=== PATIENT | male | born 1960 | race Caucasian/White ===

== ENCOUNTER → 2019-07-06 13:05 | Outpatient (BNVA) | payer MEDICARE, SELFPAY | PROVIDERS: Family Provider Nurse Practitioner Family; PCP Nurse Practitioner Family; Visit Provider Nurse Practitioner Psychiatric/Mental Health | DX: F33.3 Major depressive disorder, recurrent, severe with psychotic symptoms (principal); F41.1 Generalized anxiety disorder; F70 Mild intellectual disabilities | CPT/HCPCS: 99214 ==

== ENCOUNTER → 2019-08-24 09:00 | Outpatient (BNVA) | payer MEDICARE, SELFPAY | PROVIDERS: Family Provider Nurse Practitioner Family; PCP Nurse Practitioner Family; Visit Provider Nurse Practitioner Family | DX: M79.641 Pain in right hand (principal); M79.642 Pain in left hand; Z68.31 Body mass index [BMI] 31.0-31.9, adult | CPT/HCPCS: 80053; 85651; 86140 ==

== ENCOUNTER → 2019-08-31 08:08 | Outpatient (BNVA) | payer MEDICARE, SELFPAY | PROVIDERS: Family Provider Nurse Practitioner Family; PCP Nurse Practitioner Family; Visit Provider Nurse Practitioner Psychiatric/Mental Health | DX: F33.3 Major depressive disorder, recurrent, severe with psychotic symptoms (principal); F41.1 Generalized anxiety disorder; F70 Mild intellectual disabilities | CPT/HCPCS: 99213 ==

== ENCOUNTER → 2019-09-28 10:05 | Outpatient (BNVA) | payer MEDICARE, SELFPAY | PROVIDERS: Family Provider Nurse Practitioner Family; PCP Nurse Practitioner Family; Visit Provider Nurse Practitioner Family | DX: M79.641 Pain in right hand (principal); M79.642 Pain in left hand; W57.XXXA Bitten or stung by nonvenomous insect and other nonvenomous arthropods, initial encounter; E11.9 Type 2 diabetes mellitus without complications | CPT/HCPCS: 73130; 83036; 86618; 86666; 86757 ==

== ENCOUNTER → 2019-10-19 10:59 | Outpatient (BNVA) | payer MEDICARE, SELFPAY | PROVIDERS: Family Provider Nurse Practitioner Family; PCP Nurse Practitioner Family; Referring Provider Nurse Practitioner Family; Visit Provider Podiatrist Foot & Ankle Surgery | DX: S99.922A Unspecified injury of left foot, initial encounter (principal); E11.42 Type 2 diabetes mellitus with diabetic polyneuropathy; L84 Corns and callosities; X58.XXXA Exposure to other specified factors, initial encounter | CPT/HCPCS: 73660 ==

== ENCOUNTER → 2019-11-16 11:03 | Outpatient (BNVA) | payer MEDICARE, SELFPAY | PROVIDERS: Family Provider Nurse Practitioner Family; PCP Nurse Practitioner Family; Visit Provider Family Medicine | DX: R50.9 Fever, unspecified (principal); R19.7 Diarrhea, unspecified | CPT/HCPCS: 80053; 81000; 85025 ==

== ENCOUNTER → 2019-11-22 07:41 | Outpatient (BNVA) | payer MEDICARE, SELFPAY | PROVIDERS: Family Provider Nurse Practitioner Family; PCP Nurse Practitioner Family; Visit Provider Nurse Practitioner Psychiatric/Mental Health | DX: F33.3 Major depressive disorder, recurrent, severe with psychotic symptoms (principal); F41.1 Generalized anxiety disorder; F70 Mild intellectual disabilities; Z79.899 Other long term (current) drug therapy | CPT/HCPCS: 99214 ==

== ENCOUNTER → 2019-12-20 08:13 | Outpatient (BNVA) | payer MEDICARE, SELFPAY | PROVIDERS: Family Provider Nurse Practitioner Family; PCP Nurse Practitioner Family; Visit Provider Nurse Practitioner Psychiatric/Mental Health | DX: F33.3 Major depressive disorder, recurrent, severe with psychotic symptoms (principal); F41.1 Generalized anxiety disorder; F70 Mild intellectual disabilities | CPT/HCPCS: 99213 ==

== ENCOUNTER 2020-02-14 08:00 | Outpatient (CLI) | payer MEDICARE, SELFPAY ==
--- NOTE | 2020-02-14 08:07 | USCV_ITS ---
Sandip Hirsch Age: 59 Gender: M : 1960 Exam Date: 02/14/2020 08:24 Ordering Phys: Mireille Denny Technologist: Jolly Hutchison Exam Location: [facility] [place] Indication: HEART MURMUR BP: 144 / 72 HR: 77 Rhythm: Sinus Technical Quality: Adequate MEASUREMENTS (Male / Female) Normal Values 2D ECHO LV Diastolic Diameter PLAX 3.5 cm 4.2 - 5.9 / 3.9 - 5.3 cm LV Systolic Diameter PLAX 2.9 cm LV Chamber Size 3.9 cm IVS Diastolic Thickness 1.5 cm 0.6 - 1.0 / 0.6 - 0.9 cm IVS Systolic Thickness 1.8 cm LVPW Diastolic Thickness 1.7 cm 0.6 - 1.0 / 0.6 - 0.9 cm LVPW Systolic Thickness 2.1 cm RV Chamber Size 2.8 cm LVOT Diameter 2.1 cm LV Ejection Fraction 2D Teich 35.3 % LV Ejection Fraction MOD 2C 77.2 % LV Ejection Fraction 2C AL 77.8 % LA Diameter 4.3 cm LA Width 3.1 cm LA Height 4.3 cm RA Width 3.3 cm RA Height 3.7 cm Aorta at Sinotubular Diameter 3.0 cm M-MODE LV Diastolic Diameter MM 4.2 cm 4.2 - 5.9 / 3.9 - 5.3 cm LV Systolic Diameter MM 1.6 cm LV Ejection Fraction MM Teich 90.8 % IVS Diastolic Thickness MM 1.3 cm 0.6 - 1.0 / 0.6 - 0.9 cm IVS Systolic Thickness MM 1.3 cm LVPW Diastolic Thickness MM 1.6 cm 0.6 - 1.0 / 0.6 - 0.9 cm LVPW Systolic Thickness MM 1.9 cm Aortic Annulus Diameter 3.4 cm LA Ao Ratio MM 1.4 MV E Point Septal Separation 0.5 cm DOPPLER AV Peak Velocity 214.0 cm/s LVOT Peak Velocity 98.0 cm/s AV Area Cont Eq vti 1.9 cm squared AV Area Cont Eq pk 1.6 cm squared MV Area PHT 2.7 cm squared Mitral E to A Ratio 0.9 MV E' Velocity 35.0 cm/s Mitral E to MV E' Ratio 4.5 Mitral E to LV E' Lateral Ratio 4.3 Mitral E to LV E' Septal Ratio 4.8 TR Peak Velocity 182.3 cm/s TR Peak Gradient 13.3 mmHg TV Peak E Velocity 53.0 cm/s Right Atrial Pressure 3.0 mmHg Pulmonary Artery Systolic Pressu 16.3 mmHg PV Peak Velocity 67.0 cm/s RV Acceleration Time 0.1 s RV Ejection Time 0.3 s RV AcT/ET 0.4 FINDINGS Left Ventricle Normal left ventricular size and systolic function, EF 75 %. No regional wall motion abnormalities. Mild left ventricular hypertrophy. Grade I/IV diastolic dysfunction (abnormal relaxation filling pattern), normal to mildly elevated filling pressures. Right Ventricle Normal right ventricular size and systolic function. Right Atrium Normal right atrial size. Left Atrium Normal left atrial size. Mitral Valve No gross abnormalities noted. Aortic Valve Aortic valve sclerosis. Peak velocity of 2.1 m/s Tricuspid Valve No gross abnormalities noted Pulmonic Valve Pulmonic valve not well visualized. Pericardium No pericardial effusion. Aorta Normal aortic annulus size. CONCLUSIONS Normal left ventricular size and systolic function, EF 75 %. No regional wall motion abnormalities. Mild left ventricular hypertrophy. Grade I/IV diastolic dysfunction (abnormal relaxation filling pattern), normal to mildly elevated filling pressures. Aortic valve sclerosis. There is no pericardial effusion. There are no intracardiac masses. No previous study is available for comparison. Dr Wai Nava MD FAC (Electronically Signed) Final Date: 14 February 2020 12:34 S
== END 2020-02-14 08:01 | disposition home or self-care (01) ==
PROVIDERS: PCP Family Medicine; Visit Provider Nurse Practitioner
DX: R01.1 Cardiac murmur, unspecified (principal); I35.8 Other nonrheumatic aortic valve disorders
CPT/HCPCS: 93306

== ENCOUNTER → 2020-02-28 08:24 | Outpatient (BNVA) | payer MEDICARE, SELFPAY | PROVIDERS: PCP Family Medicine; Visit Provider Nurse Practitioner Psychiatric/Mental Health | DX: F33.3 Major depressive disorder, recurrent, severe with psychotic symptoms (principal); F41.1 Generalized anxiety disorder; F70 Mild intellectual disabilities | CPT/HCPCS: 99213 ==

== ENCOUNTER → 2020-05-01 07:30 | Outpatient (BNVA) | payer MEDICARE, SELFPAY | PROVIDERS: PCP Family Medicine; Visit Provider Nurse Practitioner Psychiatric/Mental Health | DX: F33.3 Major depressive disorder, recurrent, severe with psychotic symptoms (principal); F41.1 Generalized anxiety disorder; F70 Mild intellectual disabilities | CPT/HCPCS: 99213 ==

== ENCOUNTER → 2020-07-18 07:24 | Outpatient (BNVA) | payer MEDICARE, SELFPAY | PROVIDERS: PCP Family Medicine; Visit Provider Nurse Practitioner Psychiatric/Mental Health | DX: F33.3 Major depressive disorder, recurrent, severe with psychotic symptoms (principal); F41.1 Generalized anxiety disorder; F70 Mild intellectual disabilities | CPT/HCPCS: 99214 ==

== ENCOUNTER → 2020-08-08 08:48 | Outpatient (BNVA) | payer MEDICARE, SELFPAY | PROVIDERS: PCP Family Medicine; Visit Provider Nurse Practitioner Family | DX: Z01.812 Encounter for preprocedural laboratory examination (principal); Z12.11 Encounter for screening for malignant neoplasm of colon; Z20.822 Contact with and (suspected) exposure to COVID-19 | CPT/HCPCS: 87635 ==

== ENCOUNTER 2020-08-14 06:37 | Day surgery (SDC) | payer MEDICARE, SELFPAY ==
--- NOTE | 2020-08-14 07:23 | ANES.PREANE2 ---
Pre-Anesthetic Assessment Pre-Anesthetic Assessment: Height/Weight: Height 1.75 m Preop Diagnosis: screening Proposed Procedure: Operation Date: 08/14/20 08:00 Proposed Procedures p Colonoscopy 80286 Z12.11(Not Applicable) - David Simpson MD Familial anesthetic complications: None Was Beta Frankie taken within 24 hours: Yes Was Clonidine taken within 24 hours: N/A Last intake: > 8 hrs Social: Social History: No alcohol and No tobacco Exam: Pre-Anes Outpt Exam: alert, oriented x 3, clear to auscultation bilaterally and regular rate & rhythm Airway: Cervical ROM: WNL MP: 3 Dentition: Other (no teeth) CV/HEM: CV/HEM: HTN Metabolic: Metabolic: DM, Hyperlipidemia, Morbid obesity and Thyroid Musc/skel: Musc/skel: OA/DJD (tick fever) Anesthetic Plan: ASA status: 3 Anesthesia: MAC Risk of > 500 ml blood loss (7ml/kg in children): No PFSH Anesthesia PFSH: Medical History Generalized anxiety disorder 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
[2020-08-14 07:35] VITALS: BMI 37.6
[2020-08-14 07:51] VITALS: BP 119/79; PULSE 48; RESP 16; TEMP 36.6; O2SAT 96
[2020-08-14] MEDS: sodium chloride 0.9% 1,000 ML 30 ML IV (08:10)
[2020-08-14 08:12] LABS: Glucose Point of Care 116 mg/dL (70-110)
--- NOTE | 2020-08-14 08:29 | W.PM.OPSUD ---
Surgery/Procedure H&P Update DATE OF PROCEDURE: August 14, 2020 DATE H&P PERFORMED: 07/20/20 PREOP DIAGNOSIS: screening PLANNED PROCEDURE: Operation Date: 08/14/20 08:00 Proposed Procedures p Colonoscopy 45453 Z12.11(Not Applicable) - David Simpson MD
[2020-08-14 08:49] VITALS: BP 93/63; PULSE 79; RESP 16; TEMP 36.1; O2SAT 95
[2020-08-14 08:58] VITALS: BP 112/65; PULSE 47; RESP 18; O2SAT 97
--- NOTE | 2020-08-14 17:43 | ANE.PACU2 ---
Inpatient post-anesthesia follow up: Airway intact: Yes Vital signs: Temperature 97 F Pulse Rate 47 Respiratory Rate 18 Blood Pressure 112/65 Pulse Oximetry 97 Oxygen Delivery Me thod Room Air Oxygen Flow Rate 3 Fraction of Inspir ed Oxygen Hydration adequate: Yes Nausea and vomiting: No Pain level: 2 Mental status: Baseline
== END 2020-08-14 09:10 | disposition home or self-care (01) ==
PROVIDERS: PCP Family Medicine; Visit Provider Internal Medicine
PROC: 0DJD8ZZ Inspection of Lower Intestinal Tract, Via Natural or Artificial Opening Endoscopic (ICD-10-PCS; CPT 45378; principal; 2020-08-14 08:00)
DX: Z12.11 Encounter for screening for malignant neoplasm of colon (principal); Z79.82 Long term (current) use of aspirin; I10 Essential (primary) hypertension; E11.9 Type 2 diabetes mellitus without complications; Z79.84 Long term (current) use of oral hypoglycemic drugs; E78.5 Hyperlipidemia, unspecified; E66.01 Morbid (severe) obesity due to excess calories; Z68.37 Body mass index [BMI] 37.0-37.9, adult; M19.90 Unspecified osteoarthritis, unspecified site
CPT/HCPCS: 36416; 82962; 96360; G0121; J2704; J7030

== ENCOUNTER → 2020-08-17 09:04 | Outpatient (BNVA) | payer MEDICARE, SELFPAY | PROVIDERS: PCP Family Medicine; Visit Provider Family Medicine | DX: E11.49 Type 2 diabetes mellitus with other diabetic neurological complication (principal); F33.3 Major depressive disorder, recurrent, severe with psychotic symptoms | CPT/HCPCS: 83036 ==

== ENCOUNTER → 2020-09-06 09:00 | Outpatient (BNVA) | payer MEDICARE, SELFPAY | PROVIDERS: PCP Family Medicine; Visit Provider Nurse Practitioner Family | DX: M79.641 Pain in right hand (principal); M79.642 Pain in left hand; Z68.37 Body mass index [BMI] 37.0-37.9, adult | CPT/HCPCS: 85651; 86140 ==

== ENCOUNTER → 2020-10-10 07:36 | Outpatient (BNVA) | payer MEDICARE, SELFPAY | PROVIDERS: PCP Family Medicine; Visit Provider Nurse Practitioner Psychiatric/Mental Health | DX: F33.3 Major depressive disorder, recurrent, severe with psychotic symptoms (principal); F41.1 Generalized anxiety disorder; F70 Mild intellectual disabilities | CPT/HCPCS: 99214 ==

== ENCOUNTER → 2020-11-06 11:22 | Outpatient (BNVA) | payer MEDICARE, SELFPAY | PROVIDERS: PCP Family Medicine; Visit Provider Family Medicine | DX: E03.9 Hypothyroidism, unspecified (principal); I10 Essential (primary) hypertension; E11.9 Type 2 diabetes mellitus without complications | CPT/HCPCS: 80053; 80061; 83721; 84439; 84443 ==

== ENCOUNTER → 2020-12-11 13:32 | Outpatient (BNVA) | payer MEDICARE, SELFPAY | PROVIDERS: PCP Family Medicine; Visit Provider Family Medicine | DX: R17 Unspecified jaundice (principal) | CPT/HCPCS: 80053 ==

== ENCOUNTER → 2021-01-08 13:17 | Outpatient (BNVA) | payer MEDICARE, SELFPAY | PROVIDERS: PCP Family Medicine; Visit Provider Nurse Practitioner Family | DX: E11.49 Type 2 diabetes mellitus with other diabetic neurological complication (principal); Z68.36 Body mass index [BMI] 36.0-36.9, adult | CPT/HCPCS: 83036 ==

== ENCOUNTER → 2021-01-11 08:18 | Outpatient (BNVA) | payer MEDICARE, SELFPAY | PROVIDERS: PCP Family Medicine; Visit Provider Nurse Practitioner Psychiatric/Mental Health | DX: F33.3 Major depressive disorder, recurrent, severe with psychotic symptoms (principal); F41.1 Generalized anxiety disorder; F70 Mild intellectual disabilities | CPT/HCPCS: 99214 ==

== ENCOUNTER → 2021-02-21 11:00 | Outpatient (BNVA) | payer MEDICARE, SELFPAY | PROVIDERS: PCP Family Medicine; Visit Provider Nurse Practitioner Family | DX: Z20.822 Contact with and (suspected) exposure to COVID-19 (principal); R05.9 Cough, unspecified; R53.83 Other fatigue | CPT/HCPCS: 87635 ==

== ENCOUNTER → 2021-04-09 09:01 | Outpatient (BNVA) | payer MEDICARE, SELFPAY | PROVIDERS: PCP Family Medicine; Visit Provider Family Medicine | DX: E11.49 Type 2 diabetes mellitus with other diabetic neurological complication (principal) | CPT/HCPCS: 83036 ==

== ENCOUNTER → 2021-04-13 11:58 | Outpatient (BNVA) | payer MEDICARE, SELFPAY | PROVIDERS: PCP Family Medicine; Visit Provider Nurse Practitioner Psychiatric/Mental Health | DX: F33.3 Major depressive disorder, recurrent, severe with psychotic symptoms (principal); F41.1 Generalized anxiety disorder; F70 Mild intellectual disabilities | CPT/HCPCS: 99214 ==

== ENCOUNTER 2021-05-21 10:23 | Outpatient (CLI) | payer MEDICARE, SELFPAY ==
--- NOTE | 2021-05-21 11:30 | FL_ITS ---
WS: [id number] FL barium swallow modifd [id number] REASON FOR EXAM: Coughing and choking FLUOROSCOPY TIME: 1.6 minutes FINDINGS: The swallowing of varying consistencies of barium was evaluated and recorded fluoroscopically in the lateral upright position. Grossly the swallowing appeared normal and there was no aspiration identifi ed. Detailed report of the swallowing will be rendered by the speech therapy department. FL/FL barium swallow modifd [id number] IMPRESSION: Fluoroscopic evaluation of swallowing as above.
== END 2021-05-21 10:24 | disposition home or self-care (01) ==
LOC: RAD 10:27
PROVIDERS: PCP Family Medicine; Visit Provider Otolaryngology
DX: R09.89 Other specified symptoms and signs involving the circulatory and respiratory systems (principal); R19.8 Other specified symptoms and signs involving the digestive system and abdomen
CPT/HCPCS: 74230; 92611

== ENCOUNTER → 2021-06-25 09:21 | Outpatient (BNVA) | payer MEDICARE, MEDICAID, SELFPAY | PROVIDERS: PCP Family Medicine; Visit Provider Internal Medicine | DX: M25.431 Effusion, right wrist (principal); M25.432 Effusion, left wrist; Z11.59 Encounter for screening for other viral diseases; E11.9 Type 2 diabetes mellitus without complications; Z79.84 Long term (current) use of oral hypoglycemic drugs; J98.8 Other specified respiratory disorders; B97.89 Other viral agents as the cause of diseases classified elsewhere; K21.9 Gastro-esophageal reflux disease without esophagitis; M25.50 Pain in unspecified joint; M79.2 Neuralgia and neuritis, unspecified; R19.8 Other specified symptoms and signs involving the digestive system and abdomen; L40.9 Psoriasis, unspecified | CPT/HCPCS: 72100; 72202; 73120; 73620; 80053; 82607; 84550; 85025; 85651; 86140; 86160; 86162; 86200; 86235; 86255; 86376; 86431; 86617; 86704; 86803; 87340; 99204 ==

== ENCOUNTER 2021-06-25 11:47 | Outpatient (CLI) | payer MEDICARE, MEDICAID, SELFPAY ==
--- NOTE | 2021-06-25 12:01 | XR_ITS ---
WS: [id number] SACROILIAC JOINTS TECHNIQUE: AP and oblique imaging is submitted. HISTORY: L40.9 - Psoriasis, unspecified COMPARISON: None available. No effusion or erosions identified. There is mild narrowing and sclerosis. No widening or increased l ucency. No soft tissue abnormality. XR/XR sacroiliac jts m 3V 36347 IMPRESSION: Minimal degenerative changes at the SI joints. No erosions.
--- NOTE | 2021-06-25 12:01 | XR_ITS ---
WS: [email or web address] LEFT FOOT: 2 VIEW(S) TECHNIQUE: AP and lateral. HISTORY: M25.50 - Pain in unspecified joint COMPARISON: None available. No acute fracture or dislocation. Very mild narrowing of the first metatarsophalangeal joint. Several mild hammertoe deformities. Prior screw fixation at the medial malleolus from an old fracture. No erosions. XR/XR foot LT 2V [id number] IMPRESSION: Mild degenerative changes. No fracture or erosion.
--- NOTE | 2021-06-25 12:01 | XR_ITS ---
WS: [email or web address] RIGHT FOOT: 2 VIEW(S) TECHNIQUE: AP and lateral. HISTORY: M25.50 - Pain in unspecified joint COMPARISON: None available. No acute fracture or dislocation. Normal tarsal/metatarsal alignment. Minimal narrowing of the first metatarsophalangeal joint. Enthesopathy at the Achilles tendon attachm ent. Mild spurring involving the anterior talus. Multiple hammertoe deformities. XR/XR foot RT 2V 43842 IMPRESSION: 1. Mild degenerative changes as described above. 2. No erosion or fracture.
--- NOTE | 2021-06-25 12:01 | XRR_ITS ---
PROCEDURE INFORMATION: Exam: XR Right Hand Exam date and time: 06/25/2021 12:01 PM Age: 61 years old Clinical indication: Pain; Hand; Bilateral; Additional info: M79.2 - neuralgia and neuritis, unspecified TECHNIQUE: Imaging protocol: XR Right hand. Views: 1 or 2 views. COMPARISON: CR XR hand RT min 3V* [id number] 09/28/2019 10:32 AM FINDINGS: Bones/joints: Normal. Mild interphalangeal articulation narrowing consistent with osteoarthritis. Soft tissues: Normal. XR/XR hand RT 2V 42986 IMPRESSION: No acute findings.
--- NOTE | 2021-06-25 12:01 | XRR_ITS ---
PROCEDURE INFORMATION: Exam: XR Left Hand Exam date and time: 06/25/2021 12:01 PM Age: 61 years old Clinical indication: Pain; Hand; Bilateral; Additional info: M79.2 - neuralgia and neuritis, unspecified TECHNIQUE: Imaging protocol: XR Left hand. Views: 1 or 2 views. COMPARISON: CR XR hand LT min 3V* [id number] 09/28/2019 10:18 AM FINDINGS: Bones/joints: Normal. Soft tissues: Normal. XR/XR hand LT 2V [id number] IMPRESSION: No acute findings.
--- NOTE | 2021-06-25 12:01 | XRR_ITS ---
PROCEDURE INFORMATION: Exam: XR Lumbosacral Spine Exam date and time: 06/25/2021 12:01 PM Age: 61 years old Clinical indication: Low back pain; Additional info: M79.2 - neuralgia and neuritis, unspecified TECHNIQUE: Imaging protocol: XR of the lumbosacral spine. Views: 2 or 3 views. COMPARISON: MRI Lumbar Spine w/o [id number] 06/16/2018 10:15 AM FINDINGS: Bones/joints: Normal. No acute fracture. There is mild spondylolisthesis L4-L5. Bone spurs and bridging are seen in the lower dorsal spine. Findings correspond to mild osteoarthritis Soft tissues: Unremarkable. XR/XR lumbar spine 2-3V* [id number] IMPRESSION: 1. Spondylolisthesis L4-L5 2. Mild osteoarthritis 3. Otherwise No acute findings.
[2021-06-25 13:47] LABS: Basophils # 0.1 10^3/uL (0.0-0.1); Eosinophils # 0.2 10^3/uL (0.0-0.8); Eosinophils % 2.8 %; Hematocrit 38.7 % (42.0-52.0); Hemoglobin 12.8 g/dL (11.7-16.6); Lymphocytes # 2.5 10^3/uL (0.8-4.8); Lymphocytes % 36.5 %; Mean Corpuscular HGB Conc 33.1 g/dL (30.0-36.0); Mean Corpuscular Hemoglobin 31.1 pg (28.0-34.0); Mean Corpuscular Volume 94.2 fl (80-94); Mean Platelet Volume 10.2 fL (7.4-10.4); Monocytes # 0.6 10^3/uL (0.2-0.9); Monocytes % 9.2 %; Neutrophils # 3.37 10^3/uL (1.8-7.7); Neutrophils % 49.9 %; Nucleated Red Blood Cells % 0 %; Platelet Count 291 10^3/cmm (130-400); Red Blood Count 4.11 10^6/uL (4.1-5.3); Red Cell Distribution Width 11.8 % (12.1-15.1); White Blood Count 6.8 10^3/uL (4.0-10.0)
[2021-06-25 13:56] LABS: Erythrocyte Sedimentation Rate 12 mm/hr (0-10)
[2021-06-25 14:03] LABS: Alanine Aminotransferase 20 U/L (0-41); Albumin Level 4.9 g/dL (3.5-5.2); Alkaline Phosphatase 66 IU/L (40-130); Anion Gap 15.5 (5-19); Aspartate Amino Transferase 19 U/L (0-40); Blood Urea Nitrogen 21 mg/dL (8-23); Calcium 9.2 mg/dL (8.5-10.5); Carbon Dioxide 26 mmol/L (22-29); Chloride 98 mmol/L (98-107); Globulin 2.6 g/dL (1.3-4.6); Glomerular Filtration Rate 85.5 mL/min (90-130); Glucose 88 mg/dL (65-115); Osmolality Calculated 282 mOsm/kg (285-295); Potassium 4.5 mmol/L (3.5-5.1); Sodium 135 mmol/L (136-145); Total Bilirubin 1.4 mg/dL (0.15-1.2); Total Protein 7.5 g/dL (6.6-8.7); Uric Acid 4.6 mg/dL (3.4-7.0)
[2021-06-25 14:36] LABS: Hepatitis B Core AB, Total Non-Reactive (Nonreactive); Hepatitis B Surface Antigen Non-Reactive (Nonreactive)
[2021-06-25 15:36] LABS: Vitamin B12 436 pg/mL (232-1245)
[2021-06-25 15:54] LABS: Hepatitis C Virus Antibody Non-Reactive (Nonreactive)
[2021-06-26 13:47] LABS: CENTROMERE B ANTIBODY <1.0 NEG AI (<1.0 NEG); JO-1 ANTIBODY <1.0 NEG AI (<1.0 NEG); RNP ANTIBODY <1.0 NEG AI (<1.0 NEG); SCL-70 ANTIBODY <1.0 NEG AI (<1.0 NEG); SJOGREN'S ANTIBODY (SS-A) <1.0 NEG AI (<1.0 NEG); SM ANTIBODY <1.0 NEG AI (<1.0 NEG); SS-B <1.0 NEG AI (<1.0 NEG)
[2021-06-26 13:57] LABS: Lymes IGG WB <0.90 index
[2021-06-26 14:32] LABS: ANA SCREEN, IFA NEGATIVE (NEGATIVE); Cyclic Citrullinated Peptide <16 UNITS
[2021-06-26 14:43] LABS: COMPLEMENT COMPONENT C3C 126 mg/dL (82-185); COMPLEMENT COMPONENT C4C 14 mg/dL (15-53); THYROID PEROXIDASE ANTIBODIES 4 IU/mL (<9)
[2021-06-27 14:07] LABS: COMPLEMENT, TOTAL (CH50) >60 U/mL (31-60)
[2021-06-29 15:57] LABS: DNA AB (DS) CRITHIDIA,IFA NEGATIVE (NEGATIVE)
== END 2021-06-25 11:48 | disposition home or self-care (01) ==
PROVIDERS: PCP Family Medicine; Visit Provider Internal Medicine
DX: J98.8 Other specified respiratory disorders (principal); B97.89 Other viral agents as the cause of diseases classified elsewhere; K21.9 Gastro-esophageal reflux disease without esophagitis; M25.431 Effusion, right wrist; M25.432 Effusion, left wrist; M25.50 Pain in unspecified joint; M79.2 Neuralgia and neuritis, unspecified; R19.8 Other specified symptoms and signs involving the digestive system and abdomen; L40.9 Psoriasis, unspecified; Z11.59 Encounter for screening for other viral diseases
CPT/HCPCS: 72100; 72202; 73120; 73620; 80053; 82607; 84550; 85025; 85651; 86140; 86160; 86162; 86200; 86235; 86255; 86376; 86431; 86617; 86704; 86803; 87340; 99204

== ENCOUNTER → 2021-07-10 10:24 | Outpatient (BNVA) | payer MEDICARE, MEDICAID, SELFPAY | PROVIDERS: PCP Family Medicine; Visit Provider Internal Medicine | DX: M25.431 Effusion, right wrist (principal); M25.432 Effusion, left wrist; M79.641 Pain in right hand; M79.642 Pain in left hand; M54.50 Low back pain, unspecified | CPT/HCPCS: 99214 ==

== ENCOUNTER → 2021-07-13 08:49 | Outpatient (BNVA) | payer MEDICARE, MEDICAID, SELFPAY | PROVIDERS: PCP Family Medicine; Visit Provider Nurse Practitioner Psychiatric/Mental Health | DX: F33.3 Major depressive disorder, recurrent, severe with psychotic symptoms (principal); F41.1 Generalized anxiety disorder; F70 Mild intellectual disabilities | CPT/HCPCS: 99214 ==

== ENCOUNTER 2021-07-13 09:57 | Outpatient (CLI) | payer MEDICARE, SELFPAY ==
--- NOTE | 2021-07-13 10:12 | XR_ITS ---
WS: [email or web address] Thoracic spine, 3 views, 07/13/2021 Clinical Data: M79.2 - Neuralgia and neuritis, unspecified Comparison: None. Findings: No compression fractures are seen. The disc heights are normal. The paravertebral regions are not rem arkable. There is osteoarthritic spurring of the thoracic vertebral bodies. There is a dextroscoliosis. XR/XR thoracic spine 3V* [id number] Impression: Moderate osteoarthritis of the thoracic vertebral bodies with dextroscoliosis.
--- NOTE | 2021-07-13 10:12 | XR_ITS ---
WS: [email or web address] Lateral views of cervical spine in the flexion, extension and neutral positions. 07/13/2021 Clinical Data: M79.2 - Neuralgia and neuritis, unspecified Comparison: None. Findings: There is degenerative disc narrowing at C3-C4, C5-C6 and C6-C7. There is anterior osteoarthritic spur ring at these levels. No compression fractures are noted. There is no prevertebral soft tissue swelli ng. On flexion and extension there is no limitation of motion or subluxation. XR/XR cervical spine fl/ex [id number] Impression: Degenerative disc narrowing at multiple levels with accompanying osteoarthritis .
== END 2021-07-13 09:58 | disposition home or self-care (01) ==
PROVIDERS: PCP Family Medicine; Visit Provider Internal Medicine
DX: M79.2 Neuralgia and neuritis, unspecified; M47.814 Spondylosis without myelopathy or radiculopathy, thoracic region
CPT/HCPCS: 72040; 72072

== ENCOUNTER → 2021-08-29 09:29 | Outpatient (BNVA) | payer MEDICARE, MEDICAID, SELFPAY | PROVIDERS: PCP Family Medicine; Visit Provider Internal Medicine | DX: M25.431 Effusion, right wrist (principal); M25.432 Effusion, left wrist; M48.10 Ankylosing hyperostosis [Forestier], site unspecified; M79.2 Neuralgia and neuritis, unspecified; Z79.899 Other long term (current) drug therapy | CPT/HCPCS: 99214 ==

== ENCOUNTER 2021-09-03 | Outpatient (CLI) | payer MEDICARE, SELFPAY | END 2021-09-03 23:00 | disposition home or self-care (01) | LOC: RAD 02-05 22:30 | PROVIDERS: PCP Family Medicine; Visit Provider Internal Medicine | DX: E11.9 Type 2 diabetes mellitus without complications (principal) | CPT/HCPCS: 83036 ==

== ENCOUNTER → 2021-10-04 07:54 | Outpatient (BNVA) | payer MEDICARE, MEDICAID, SELFPAY | PROVIDERS: PCP Family Medicine; Visit Provider Nurse Practitioner Psychiatric/Mental Health | DX: F33.3 Major depressive disorder, recurrent, severe with psychotic symptoms (principal); F41.1 Generalized anxiety disorder; F70 Mild intellectual disabilities | CPT/HCPCS: 99214 ==

== ENCOUNTER → 2021-10-15 12:03 | Outpatient (BNVA) | payer MEDICARE, SELFPAY | PROVIDERS: PCP Family Medicine; Visit Provider Family Medicine | DX: R93.89 Abnormal findings on diagnostic imaging of other specified body structures (principal); N47.1 Phimosis; E11.9 Type 2 diabetes mellitus without complications | CPT/HCPCS: 71046 ==

== ENCOUNTER → 2021-11-15 11:14 | Outpatient (BNVA) | payer MEDICARE, SELFPAY | PROVIDERS: PCP Family Medicine; Visit Provider Family Medicine | DX: M79.672 Pain in left foot (principal); S92.352D Displaced fracture of fifth metatarsal bone, left foot, subsequent encounter for fracture with routine healing; X58.XXXD Exposure to other specified factors, subsequent encounter | CPT/HCPCS: 73630 ==

== ENCOUNTER → 2021-11-19 08:48 | Outpatient (BNVA) | payer MEDICARE, MEDICAID, SELFPAY | PROVIDERS: PCP Family Medicine; Visit Provider Podiatrist Foot & Ankle Surgery | DX: S92.352A Displaced fracture of fifth metatarsal bone, left foot, initial encounter for closed fracture (principal); W01.198A Fall on same level from slipping, tripping and stumbling with subsequent striking against other object, initial encounter | CPT/HCPCS: 28475; 73620 ==

== ENCOUNTER → 2021-12-31 09:23 | Outpatient (BNVA) | payer MEDICARE, SELFPAY | PROVIDERS: PCP Family Medicine; Visit Provider Family Medicine | DX: E11.49 Type 2 diabetes mellitus with other diabetic neurological complication (principal); E03.9 Hypothyroidism, unspecified; E11.9 Type 2 diabetes mellitus without complications; E78.5 Hyperlipidemia, unspecified; S92.309A Fracture of unspecified metatarsal bone(s), unspecified foot, initial encounter for closed fracture | CPT/HCPCS: 73630; 80053; 80061; 83036; 84439; 84443; 85025; 85651; 86140 ==

== ENCOUNTER → 2022-01-01 15:10 | Outpatient (BNVA) | payer MEDICARE, SELFPAY | PROVIDERS: PCP Family Medicine; Referring Provider Family Medicine; Visit Provider Podiatrist Foot & Ankle Surgery | DX: S92.352A Displaced fracture of fifth metatarsal bone, left foot, initial encounter for closed fracture (principal); W01.0XXA Fall on same level from slipping, tripping and stumbling without subsequent striking against object, initial encounter | CPT/HCPCS: 73630; 99203; 99204 ==

== ENCOUNTER → 2022-01-16 09:29 | Outpatient (BNVA) | payer MEDICARE, SELFPAY | PROVIDERS: PCP Family Medicine; Visit Provider Family Medicine | DX: S92.309A Fracture of unspecified metatarsal bone(s), unspecified foot, initial encounter for closed fracture (principal); E11.49 Type 2 diabetes mellitus with other diabetic neurological complication; X58.XXXA Exposure to other specified factors, initial encounter | CPT/HCPCS: 84550 ==

== ENCOUNTER → 2022-03-06 10:01 | Outpatient (BNVA) | payer MEDICARE, SELFPAY | PROVIDERS: PCP Family Medicine; Visit Provider Podiatrist Foot & Ankle Surgery | DX: S92.352G Displaced fracture of fifth metatarsal bone, left foot, subsequent encounter for fracture with delayed healing (principal); W01.198D Fall on same level from slipping, tripping and stumbling with subsequent striking against other object, subsequent encounter | CPT/HCPCS: 73630; 99214; 99215 ==

== ENCOUNTER 2022-03-15 07:05 | Day surgery (SDC) | payer MEDICARE, SELFPAY ==
[2022-03-14 14:23] VITALS: BMI 31.7
--- NOTE | 2022-03-15 | SCC_ITS ---
Procedure done: Open reduction internal fixation left fifth metatarsal fracture 29871 - seconds of fluoroscopic guidance, for a cumulative dose of - mGy, was provided to Dr. Dominguez by the radiology department. C-arm images of the left foot were saved for the patient's permanent record. [facility] CENTERFilippo
--- NOTE | 2022-03-15 | XR_ITS ---
WS: [email or web address] Left foot, C-arm fluoroscopy, 03/15/2022 Clinical Data: ORIF LT 5TH METATARSAL Comparison: Left foot, 03/06/2022 Findings: The fracture of the distal left fifth metatarsals reduced with a lateral plate and multiple screws. XR/XR foot LT 2V 11572 Impression: Internal fixation of left fifth metatarsal fracture.
--- NOTE | 2022-03-15 06:24 | P.OP_ITS ---
Operative Report Date of procedure: March 15, 2022 Pre-op diagnosis: Left fifth metatarsal fracture, delayed healing Post-op diagnosis: Same Post-op findings: Nonhealed left fifth metatarsal fracture. Procedure done: Open reduction internal fixation left fifth metatarsal fracture. CPT code 40118 Implants: Morganza 20 eight 4-hole straight plate and 2 mm locking screws, 3-0 Vicryl, 4-0 Vicryl, 4-0 nylon. 30 cc of 2-1 mixture Exparel and Marcaine 0.25%. 10 cc of Exparel expanded with 20 cc of Marcaine. Specimens removed/disposition: None Pathology: None Surgeon: Toy Dominguez D.P.M. Transplant Nurse Practitioner: See intraoperative documentation Estimated blood loss: 5 See intra operative documentation IV fluids: 0 Urine output: 0 Complications: none Brief History: Patient's fracture has become symptomatic, has pain on a daily basis with standing and walking.? States that he would like to discuss surgical invention as it has failed to heal and is now affecting him with daily pain.? X-ray at today's visit shows oblique fracture of the distal left fifth metatarsal, starts laterally at the metaphyseal diaphyseal juncture and courses in an oblique fashion proximally to the mid diaphysis.? Greater than 2 mm of displacement.? No significant osseous healing at the fracture site.? I reviewed at length with the patient, the risks, potential complications, benefits, alternatives, expectations, and typical outcomes associated with the surgery. The risks and potential complications were explained in detail, including but not limited to infection, wound dehiscence or soft tissue complications, bleeding and hematoma, chronic edema, neuritis or nerve damage producing numbness or chronic pain, CRPS, failure to relieve pain or worsening pain, thick / painful / unsightly scar, limited motion / stiffness, malposition, delayed union, malunion, or nonunion, fracture, reaction to implants, anesthetic complications, venous thromboembolism, and deformity recurrence.? I discussed the notion of no regrets with the patient as it pertains to complications and outcomes. The patient seemed to understand the nature of the proposed care and required convalescence. They asked appropriate questions, answered to their satisfaction. They are aware no guarantees can be made as to a satisfactory outcome and they understand there may be other possible unforeseen complications or outcomes not listed here that will be treated accordingly if they arise. There were no written or implied guarantees given to the patient. They gave informed consent to proceed. Procedure: Under mild sedation the patient was brought to the operating room and remained on the gurney in supine position. A timeout was performed. Anesthesia was then administered by the anesthesia service. Local anesthesia injected by myself in a grid like fashion subcutaneously at the lateral forefoot, left. Injected as above. Well-padded pneumatic tourniquet applied to the left ankle. The left lower extremity was then scrubbed, prepped and draped utilizing normal aseptic technique. Left foot was exanguinated with an Esmarch bandage and the tourniquet was then inflated to 250 mmHg. Attention was directed to the dorsal lateral aspect of the left fifth metatarsal where a linear longitudinal incision was made with #15 blade at the head of the fifth metatarsal coursing proximally mid diaphysis. Dissection was carried down through subcutaneous tissue to the layer of periosteum utilizing sharp and blunt technique. Care was taken to retract and preserve neurovascular and tendinous structures. All bleeders were ligated and cauterized as necessary. A self- retaining wheat [place] was utilized to maintain visualization, periosteal incision was made in the fracture of the left fifth metatarsal was identified, this was curettaged, flushed and reduced with [id number] forceps followed by fixation utilizing standard AO technique this was a Morganza 28 straight plate, 4-hole with 2 mm locking screws with excellent bony apposition and compression noted. Confirmed orthopedic hardware placement to be excellent in all 3 planes both AP, oblique and lateral views. Did not violate the metatarsal phalangeal joint of the fifth ray, maintained reduction with excellent stabilization of the fracture appreciated intraoperatively. The incision was flushed with copious amounts of sterile skin solution, temporary fixation was removed and the incision was closed in a layered fashion with periosteum reapproximated utilizing 3-0 Vicryl, subcutaneous tissue reapproximated with 4-0 Vicryl and skin with 4-0 nylon. The incision was dressed with Adaptic, sterile 4 x 4, Kerlix and Baljit wrap followed by application of a new cam boot. Tourniquet was then deflated and a prompt hyperemic response is noted to the distal digits of the left foot. Patient tolerated the procedure and anesthesia well and was transferred to the PACU with vital signs stable and vascular status intact. Following a period of postoperative monitoring he will be discharged home may be weightbearing heel touch only for transfers with a cam boot. Elevate left foot while resting. Was given at home care instructions and follow-up.
--- NOTE | 2022-03-15 06:24 | W.PM.OPSUD ---
Surgery/Procedure H&P Update DATE OF PROCEDURE: March 15, 2022 DATE H&P PERFORMED: 07/20/20 CHANGES TO PREVIOUS DOCUMENTATION: None PREOP DIAGNOSIS: screening PRIMARY INDICATION FOR PROCEDURE: Nonhealing left fifth metatarsal fracture causing pain. PLANNED PROCEDURE: Operation Date: 03/15/22 09:10 Proposed Procedures p Open reduction internal fixation left fifth metatarsal fracture 62304,S92.352G(Left) - Toy Dominguez DPM
[2022-03-15 07:39] LABS: Glucose Point of Care 97 mg/dL (70-110)
[2022-03-15 07:40] VITALS: BP 145/87; PULSE 53; RESP 16; TEMP 36.3; O2SAT 99
[2022-03-15] MEDS: sodium chloride 0.9% 1,000 ML 30 ML IV (07:52)
--- NOTE | 2022-03-15 07:54 | P.ANESASSM_ITS ---
Pre-Anesthetic Assessment Height/Weight: Height 1.75 m Weight 97.522 kg Temp Pulse Resp BP Pulse Ox O2 Del Method 97.4 F L 53 L 16 145/87 99 03/15/22 07:40 03/15/22 07:40 03/15/22 07:40 03/15/22 07:40 03/15/22 07:40 03/15/22 07:40 Preop Diagnosis: Left fifth metatarsal fracture Operation Date: 03/15/22 09:10 Proposed Procedures p Open reduction internal fixation left fifth metatarsal fracture 22146,S92.352G (Left) - Toy Dominguez DPM Familial anesthetic complications: None Was Beta Frankie taken within 24 hours: N/A Was Clonidine taken within 24 hours: N/A Last intake: Intake Last Liquid Date 03/14/22 Last Liquid Time 19:30 Last Solid Date 03/14/22 Last Solid Time 19:30 Social No alcohol and No tobacco Exam alert, oriented x 3, clear to auscultation bilaterally and regular rate & rhythm Airway Mallampati: Class III Dentition: other (no teeth) GI Gastroesophageal Reflux Disease Metabolic Diabetes Mellitus, Morbid Obesity and Thyroid Disease Anesthetic Plan ASA status: 3 Anesthesia: MAC Risk of > 500 ml blood loss (7ml/kg in children): No Medications/Allergies Home Medications Medication Instructions Recorded Confirmed Last Taken Type omega-3 fatty acids 1,000 mg 1,000 mg PO DAILY 07/06/19 03/15/22 03/14/22 History capsule (Fish Oil Concentrate) vitamin B complex (B 1 tab PO DAILY 07/06/19 03/14/22 08/14/20 History Complex-Vitamin B12 tablet) calcium carbonate 500 mg-vitamin 1 tab PO BEDTIME 11/16/19 03/15/22 03/14/22 History D3 5 mcg (200 unit) tablet (Calcium 500 + D) garlic 1,000 mg capsule 1,000 mg PO DAILY 11/16/19 03/15/22 03/14/22 History potassium gluconate 595 mg (99 mg) 595 mg PO DAILY 11/16/19 03/15/22 03/14/22 History tablet ascorbate calcium (vitamin C) 500 500 mg PO DAILY 11/06/20 03/15/22 03/14/22 History mg tablet jtbhwc-wvhqpw-rrhkxjlxo-chrom 1 tab PO DAILY 02/05/21 03/15/22 03/14/22 History poly-grn tea 2 gram-100 mcg chewable tab lancing device (TRUEdraw Lancing #1 ea 03/22/21 03/13/22 Unknown Rx Device) pantoprazole 40 mg tablet,delayed 40 mg PO DAILY #30 tabs 03/22/21 03/15/22 03/14/22 Rx release magnesium 250 mg tablet 400 mg PO DAILY 04/13/21 03/15/22 03/14/22 History acetaminophen 500 mg tablet 2,000 mg PO BID pain 06/25/21 03/15/22 03/14/22 History (Tylenol Extra Strength) biotin 2,500 mcg capsule 5,000 mcg PO DAILY 06/25/21 03/15/22 03/14/22 History lancets 28 gauge (TRUEplus Lancets) #200 ea 06/28/21 03/13/22 Unknown Rx blood sugar diagnostic (True #200 ea 06/29/21 03/13/22 Unknown Rx Metrix Glucose Test Strip) metformin 1,000 mg tablet 1,000 mg PO BID #180 tabs 07/02/21 03/15/22 03/14/22 Rx diabetic supplies, miscellan. #1 ea 12/10/21 03/13/22 Unknown Rx blood-glucose meter (True Metrix #1 ea 12/19/21 03/13/22 Unknown Rx Glucose Meter kit) lisinopril 10 mg tablet 10 mg PO DAILY #90 tabs 12/19/21 03/15/22 03/14/22 Rx buspirone 10 mg tablet 20 mg PO .morning #180 tabs 12/26/21 03/15/22 03/14/22 Rx levothyroxine 75 mcg tablet 75 mcg PO DAILY #90 tabs 12/26/21 03/15/22 03/14/22 Rx quetiapine 100 mg tablet (Seroquel) 100 mg PO .9:30 pm #90 tabs 12/26/21 03/15/22 03/14/22 Rx quetiapine 25 mg tablet (Seroquel) 25 mg PO .9:30 pm #90 tabs 12/26/21 03/15/22 03/14/22 Rx venlafaxine 150 mg 150 mg PO QAM #90 caps 12/26/21 03/14/22 Unknown Rx capsule,extended release 24 hr (Effexor XR) terbinafine HCl 250 mg tablet 250 mg PO DAILY #90 tabs 12/31/21 03/14/22 Unknown Rx blood pressure monitor #1 ea 01/17/22 03/13/22 Unknown Rx meloxicam 15 mg tablet 15 mg PO DAILY #90 tabs 02/28/22 03/15/22 03/14/22 Rx aspirin 81 mg tablet,delayed 81 mg PO DAILY 03/14/22 03/15/22 03/14/22 History release atenolol 25 mg tablet 25 mg PO BID htn 03/14/22 03/15/22 03/15/22 History bimatoprost 0.03 % eye drops 1 drp ophthalmic (eye) BEDTIME 03/14/22 03/15/22 03/14/22 History cholecalciferol (vitamin D3) 10 10 mcg PO DAILY 03/14/22 03/14/22 Unknown History mcg (400 unit) capsule (Vitamin D3) ibuprofen 200 mg tablet 800 mg PO DAILY 03/14/22 03/15/22 03/14/22 History montelukast 10 mg tablet 10 mg PO BEDTIME 03/14/22 03/14/22 Unknown History (Singulair) naproxen sodium 220 mg capsule 440 mg PO BEDTIME 03/14/22 03/15/22 03/14/22 History (Aleve) simvastatin 40 mg tablet 40 mg PO BEDTIME 03/14/22 03/15/22 03/14/22 History venlafaxine 75 mg capsule,extended 225 mg PO QAM 03/14/22 03/15/22 03/14/22 History release 24 hr (Effexor XR) ziprasidone HCl 80 mg capsule 80 mg PO BEDTIME 03/14/22 03/15/22 03/14/22 History (Geodon) hydrocodone 5 mg-acetaminophen 325 1 tab PO Q6H PRN pain 7 days #20 03/15/22 Unknown Rx mg tablet tabs Allergies Allergy/AdvReac Type Severity Reaction Status Date / Time carisoprodol [From Soma] Allergy Unknown unknown Verified 03/15/22 07:23 Penicillins Allergy Unknown swelling Verified 03/15/22 07:23 Current Medications Generic Name Dose Route Start Last Admin Trade Name Freq PRN Reason Stop Dose Admin Sodium Chloride 1,000 mls @ 30 mls/hr 03/15/22 07:15 03/15/22 07:52 Sodium Chloride 0.9% IV 03/16/22 07:14 30 mls/hr .Q24H MILADYS Administration PFSH Anesthesia Medical History DISH (diffuse idiopathic skeletal hyperostosis) Generalized anxiety disorder 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
[2022-03-15] MEDS: clindamycin 600 MG/50 ML PREMIX 100 MG IV (08:12)
[2022-03-15 08:29] LABS: Anion Gap 14.7 (5-19); Blood Urea Nitrogen 24 mg/dL (8-23); Calcium 9.3 mg/dL (8.5-10.5); Carbon Dioxide 22 mmol/L (22-29); Chloride 103 mmol/L (98-107); Glomerular Filtration Rate 61.3 mL/min (90-130); Glucose 89 mg/dL (65-115); Osmolality Calculated 284 mOsm/kg (285-295); Potassium 4.7 mmol/L (3.5-5.1); Sodium 135 mmol/L (136-145)
[2022-03-15 08:55] VITALS: BP 104/61; PULSE 63; RESP 16; TEMP 37; O2SAT 100
[2022-03-15 09:00] VITALS: BP 102/65; PULSE 65; RESP 18; TEMP 37; O2SAT 100
[2022-03-15 09:05] VITALS: BP 108/66; PULSE 65; RESP 18; TEMP 37; O2SAT 100
[2022-03-15 09:11] VITALS: BP 114/68; PULSE 65; RESP 17; TEMP 36.6; O2SAT 100
[2022-03-15 09:26] VITALS: BP 120/70; PULSE 67; RESP 16; TEMP 36.6; O2SAT 99
--- NOTE | 2022-03-15 15:09 | ANE.PACU2 ---
Inpatient post-anesthesia follow up: Airway intact: Yes Vital signs: Temperature 98 F Pulse Rate 67 Respiratory Rate 16 Blood Pressure 120/70 Pulse Oximetry 99 Oxygen Delivery Me thod Room Air Oxygen Flow Rate 6 Fraction of Inspir ed Oxygen Hydration adequate: Yes Nausea and vomiting: No Pain level: 1 Mental status: Baseline
== END 2022-03-15 09:35 | disposition home or self-care (01) ==
PROVIDERS: Anesthesiology; PCP Family Medicine; Visit Provider Podiatrist Foot & Ankle Surgery
PROC: (CPT 28485; principal; 2022-03-15 09:00)
DX: S92.352G Displaced fracture of fifth metatarsal bone, left foot, subsequent encounter for fracture with delayed healing (principal); X58.XXXD Exposure to other specified factors, subsequent encounter; K21.9 Gastro-esophageal reflux disease without esophagitis; E11.9 Type 2 diabetes mellitus without complications; E66.01 Morbid (severe) obesity due to excess calories; Z68.31 Body mass index [BMI] 31.0-31.9, adult
CPT/HCPCS: 28485; 36416; 73620; 76000; 80048; 82962; C1713; C9290; J2250; J2704; J3010; J3490; J7030

== ENCOUNTER → 2022-03-28 12:49 | Outpatient (BNVA) | payer MEDICARE, SELFPAY | PROVIDERS: PCP Family Medicine; Visit Provider Podiatrist Foot & Ankle Surgery | DX: S92.352D Displaced fracture of fifth metatarsal bone, left foot, subsequent encounter for fracture with routine healing (principal); W19.XXXD Unspecified fall, subsequent encounter | CPT/HCPCS: 73630; 99024 ==

== ENCOUNTER → 2022-04-25 13:08 | Outpatient (BNVA) | payer MEDICARE, MEDICAID, SELFPAY | PROVIDERS: PCP Family Medicine; Visit Provider Podiatrist Foot & Ankle Surgery | DX: S92.352D Displaced fracture of fifth metatarsal bone, left foot, subsequent encounter for fracture with routine healing (principal); X58.XXXD Exposure to other specified factors, subsequent encounter; M76.71 Peroneal tendinitis, right leg | CPT/HCPCS: 73630; 99213 ==

== ENCOUNTER → 2022-05-17 14:46 | Outpatient (BNVA) | payer MEDICARE, SELFPAY | PROVIDERS: PCP Family Medicine; Visit Provider Nurse Practitioner Family | DX: M79.672 Pain in left foot (principal); Z96.7 Presence of other bone and tendon implants | CPT/HCPCS: 73630 ==

== ENCOUNTER → 2022-05-20 15:36 | Outpatient (BNVA) | payer MEDICARE, MEDICAID, SELFPAY | PROVIDERS: PCP Family Medicine; Visit Provider Podiatrist Foot & Ankle Surgery | DX: S92.352A Displaced fracture of fifth metatarsal bone, left foot, initial encounter for closed fracture (principal); W19.XXXA Unspecified fall, initial encounter | CPT/HCPCS: 73630; 99214 ==

== ENCOUNTER 2022-05-24 08:03 | Day surgery (SDC) | payer MEDICARE, SELFPAY ==
[2022-05-23 13:08] VITALS: BMI 31.3
[2022-05-24] VITALS (7 sets, daily range): BP systolic 120–137; BP diastolic 70–87; PULSE 57–60; RESP 14–20; TEMP 36.1–36.6; O2SAT 97–100
--- NOTE | 2022-05-24 | XR_ITS ---
WS: [email or web address] Left foot, C-arm fluoroscopy view, 05/24/2022 Clinical Data: [facility] Comparison: Left foot, 05/20/2022 Findings: There is reduction of a fracture of the left fifth metatarsal. XR/XR foot LT 2V [id number] Impression: Revision of internal fixation of left fifth metatarsal fracture.
--- NOTE | 2022-05-24 06:08 | W.PM.OPSUD ---
Surgery/Procedure H&P Update DATE OF PROCEDURE: May 24, 2022 DATE H&P PERFORMED: 05/20/22 CHANGES TO PREVIOUS DOCUMENTATION: none PREOP DIAGNOSIS: Left fifth metatarsal fracture PLANNED PROCEDURE: Operation Date: 05/24/22 08:30 Proposed Procedures p Open reduction internal fixation left fifth metatarsal fracture 58861,S92.352G(Left) - Toy Dominguez DPM
--- NOTE | 2022-05-24 07:26 | SUR.PREOP ---
Pre-op While obtaining telephone pre-op information on 05/23/22, patient's medications were verified. Patient stated he had taken Aspirin 05/23/22. Patient instructed not to take again until after surgery if ordered by physician. Dr. Dominguez notified of medication administration, he did okay to continue with surgery.
[2022-05-24] MEDS: sodium chloride 0.9% 1,000 ML 30 ML IV (08:38)
[2022-05-24] MEDS: CELEcoxib 200 mg Capsule 400 MG PO (08:39)
[2022-05-24 08:43] LABS: Glucose Point of Care 104 mg/dL (70-110)
--- NOTE | 2022-05-24 08:49 | ANES.PREANE2 ---
Pre-Anesthetic Assessment Height/Weight: Height 1.75 m Weight 96.162 kg Temp Pulse Resp BP Pulse Ox O2 Del Method 97.8 F 59 L 18 132/74 98 05/24/22 08:24 05/24/22 08:24 05/24/22 08:24 05/24/22 08:24 05/24/22 08:24 05/24/22 08:25 Preop Diagnosis: Left fifth metatarsal fracture Operation Date: 05/24/22 08:30 Proposed Procedures p Open reduction internal fixation left fifth metatarsal fracture 68230,S92.352G(Left) - Toy Dominguez DPM Familial anesthetic complications: None Was Beta Frankie taken within 24 hours: Yes Was Clonidine taken within 24 hours: N/A Last intake: Intake Last Liquid Date 05/23/22 Last Liquid Time 19:30 Last Solid Date 05/23/22 Last Solid Time 17:00 Social No alcohol and No tobacco Exam alert, oriented x 3, clear to auscultation bilaterally and regular rate & rhythm Airway Mallampati: Class III Dentition: other (noteeth) GI Gastroesophageal Reflux Disease Metabolic Diabetes Mellitus, Morbid Obesity and Thyroid Disease Anesthetic Plan ASA status: 3 Anesthesia: MAC Risk of > 500 ml blood loss (7ml/kg in children): No Medications/Allergies Home Medications Medication Instructions Recorded Confirmed Last Taken Type omega-3 fatty acids 1,000 mg 1,000 mg PO DAILY 07/06/19 05/24/22 05/23/22 07:30 History capsule (Fish Oil Concentrate) vitamin B complex (B 1 tab PO DAILY 07/06/19 05/24/22 05/23/22 07:30 History Complex-Vitamin B12 tablet) calcium carbonate 500 mg-vitamin 1 tab PO BEDTIME 11/16/19 05/24/22 05/22/22 19:30 History D3 5 mcg (200 unit) tablet (Calcium 500 + D) garlic 1,000 mg capsule 1,000 mg PO DAILY 11/16/19 05/24/22 05/23/22 07:30 History potassium gluconate 595 mg (99 mg) 595 mg PO DAILY 11/16/19 05/24/22 05/22/22 19:30 History tablet ascorbate calcium (vitamin C) 500 500 mg PO DAILY 11/06/20 05/24/22 05/23/22 07:30 History mg tablet emvqib-olnbtb-hyfoluump-chrom 1 tab PO DAILY 02/05/21 05/24/22 05/23/22 07:30 History poly-grn tea 2 gram-100 mcg chewable tab lancing device (TRUEdraw Lancing #1 ea 03/22/21 05/23/22 Unknown Rx Device) magnesium 250 mg tablet 400 mg PO DAILY 04/13/21 05/24/22 05/23/22 07:30 History acetaminophen 500 mg tablet 2,000 mg PO BID pain 06/25/21 05/24/22 05/23/22 07:30 History (Tylenol Extra Strength) biotin 2,500 mcg capsule 5,000 mcg PO DAILY 06/25/21 05/24/22 05/23/22 07:30 History lancets 28 gauge (TRUEplus Lancets) #200 ea 06/28/21 05/23/22 Unknown Rx blood sugar diagnostic (True #200 ea 06/29/21 05/23/22 Unknown Rx Metrix Glucose Test Strip) metformin 1,000 mg tablet 1,000 mg PO BID #180 tabs 07/02/21 05/24/22 05/23/22 07:30 Rx diabetic supplies, miscellan. #1 ea 12/10/21 05/23/22 Unknown Rx blood-glucose meter (True Metrix #1 ea 12/19/21 05/23/22 Unknown Rx Glucose Meter kit) lisinopril 10 mg tablet 10 mg PO DAILY #90 tabs 12/19/21 05/24/22 05/23/22 07:30 Rx buspirone 10 mg tablet 20 mg PO .morning #180 tabs 12/26/21 05/24/22 05/23/22 07:30 Rx quetiapine 100 mg tablet (Seroquel) 100 mg PO .9:30 pm #90 tabs 12/26/21 05/24/22 05/22/22 19:30 Rx quetiapine 25 mg tablet (Seroquel) 25 mg PO .9:30 pm #90 tabs 12/26/21 05/24/22 05/22/22 19:30 Rx venlafaxine 150 mg 150 mg PO QAM #90 caps 12/26/21 05/24/22 05/23/22 07:30 Rx capsule,extended release 24 hr (Effexor XR) blood pressure monitor #1 ea 01/17/22 05/23/22 Unknown Rx meloxicam 15 mg tablet 15 mg PO DAILY #90 tabs 02/28/22 05/24/22 05/23/22 07:30 Rx aspirin 81 mg tablet,delayed 81 mg PO DAILY 03/14/22 05/24/22 05/23/22 07:30 History release atenolol 25 mg tablet 25 mg PO BID htn 03/14/22 05/24/22 05/23/22 07:30 History bimatoprost 0.03 % eye drops 1 drp ophthalmic (eye) BEDTIME 03/14/22 05/24/22 05/22/22 19:30 History cholecalciferol (vitamin D3) 10 10 mcg PO DAILY 03/14/22 05/24/22 05/23/22 07:30 History mcg (400 unit) capsule (Vitamin D3) montelukast 10 mg tablet 10 mg PO BEDTIME 03/14/22 05/24/22 05/22/22 19:30 History (Singulair) simvastatin 40 mg tablet 40 mg PO BEDTIME 03/14/22 05/24/22 05/23/22 19:30 History ziprasidone HCl 80 mg capsule 80 mg PO BEDTIME 03/14/22 05/24/22 05/23/22 19:30 History (Geodon) levothyroxine 75 mcg tablet 75 mcg PO DAILY #90 tabs 03/28/22 05/24/22 05/23/22 07:30 Rx venlafaxine 75 mg capsule,extended 75 mg PO QAM 04/01/22 05/24/22 05/23/22 07:30 History release 24 hr (Effexor XR) pantoprazole 40 mg tablet,delayed 40 mg PO DAILY #30 tabs 05/17/22 05/24/22 05/23/22 07:30 Rx release tramadol 50 mg tablet 50 mg PO Q4H PRN pain 7 days #30 05/24/22 Unknown Rx tabs Allergies Allergy/AdvReac Type Severity Reaction Status Date / Time carisoprodol [From Soma] Allergy Unknown unknown Verified 05/24/22 08:16 Penicillins Allergy Unknown swelling Verified 05/24/22 08:16 Current Medications Generic Name Dose Route Start Last Admin Trade Name Freq PRN Reason Stop Dose Admin Sodium Chloride 1,000 mls @ 30 mls/hr 05/24/22 08:15 05/24/22 08:38 Sodium Chloride 0.9% IV 05/25/22 08:14 30 mls/hr .Q24H MILADYS Administration PFSH Anesthesia Medical History DISH (diffuse idiopathic skeletal hyperostosis) Generalized anxiety disorder 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, recurrent episode with mood-congruent psychotic features Psychiatric care Social History Smoking and tobacco status: never smoked Alcohol intake: never Current occupation: disability History of recent travel: No Data Anesthesia Cardiac Studies: Echocardiogram Ultrasound 02/14/20
[2022-05-24] MEDS: clindamycin 600 MG/50 ML PREMIX 100 MG IV (09:05)
--- NOTE | 2022-05-24 10:03 | PM.OP ---
Operative Report Date of procedure: May 24, 2022 Pre-op diagnosis: Preop Diagnosis Left fifth metatarsal fracture Post-op diagnosis: Left fifth metatarsal fracture. Fracture is new and acute from new injury. Post-op findings: New acute fracture to the left fifth metatarsal more proximal to previously treated fracture. Procedure done: Open reduction internal fixation left fifth metatarsal fracture. CPT code 33031 Deep hardware removal. CPT code 89894 Implants: Viburnum 5 hole straight plate, 2.5 millimeter screws Specimens removed/disposition: 4-hole straight plate and 4 screws Pathology: None Surgeon: Toy Dominguez D.P.M. Fisheries Management Biologist: Meron Estimated blood loss: 5 47 IV fluids: None Urine output: None Findings: New left fifth metatarsal fracture more proximal to previously treated injury Brief History: Pleasant 62-year-old male presents with a reinjury to his left foot.? He sustained a left fifth metatarsal fracture that failed conservative treatment and underwent surgical intervention 03/15/2022.? He went on to increase his activities weightbearing in a cam boot as a healing process postoperatively was appreciated.? Unfortunately patient sustained a new fall injuring his left foot at home he slipped in the bathroom was not wearing his boot or shoe.? X-rays at today's visit show a new fracture that is more proximal to the original, new fracture line involves more proximal diaphysis proximal to the hardware and then courses distally with greater than 3 mm of displacement.? Patient having increased pain and swelling in wishes to proceed with surgical fixation of the fracture given the history of delayed healing at the last injury.? I reviewed at length with the patient, the risks, potential complications, benefits, alternatives, expectations, and typical outcomes associated with the surgery. The risks and potential complications were explained in detail, including but not limited to infection, wound dehiscence or soft tissue complications, bleeding and hematoma, chronic edema, neuritis or nerve damage producing numbness or chronic pain, CRPS, failure to relieve pain or worsening pain, thick / painful / unsightly scar, limited motion / stiffness, malposition, delayed union, malunion, or nonunion, fracture, reaction to implants, anesthetic complications, venous thromboembolism, and deformity recurrence.? I discussed the notion of no regrets with the patient as it pertains to complications and outcomes. The patient seemed to understand the nature of the proposed care and required convalescence. They asked appropriate questions, answered to their satisfaction. They are aware no guarantees can be made as to a satisfactory outcome and they understand there may be other possible unforeseen complications or outcomes not listed here that will be treated accordingly if they arise. There were no written or implied guarantees given to the patient. They gave informed consent to proceed. Procedure: Under mild sedation the patient was brought to the operating room and placed on the operating table in supine position. A timeout was performed. Anesthesia was then administered by the anesthesia service. Local anesthesia was injected by myself consisting of 20 cc of 0.5% Marcaine plain in a left Carballo block fashion and 10 cc of Exparel subcutaneously in a grid like fashion at the operative site. Well-padded pneumatic tourniquet applied to the left ankle. The left lower extremity was then scrubbed, prepped and draped utilizing normal aseptic technique. Left foot was exanguinated with an Esmarch bandage and the tourniquet inflated to 250 mmHg. Attention was directed to the dorsal lateral aspect of the left fifth metatarsal where over the previous incision a new incision was performed with a #15 blade through skin with dissection carried down through subcutaneous tissue utilizing a combination of sharp and blunt technique. Care was taken to retract and preserve neurovascular and tendinous structures. All bleeders were ligated and cauterized as necessary. Periosteal incision was made. A new fracture pattern more proximal to the previously sustained left fifth metatarsal fracture was appreciated. This was more proximal at the proximal diaphysis with displacement greater than 2 mm. Able to visualize the previous hardware was a 4-hole plate and previous fracture showing healthy bony callus formation and interval healing. The new fracture was distracted and curettaged of hematoma. In order to appropriately fixate the new fracture previous hardware needed to be removed for placement of new hardware that is longer and more proximal. Deep hardware was removed at the left fifth metatarsal including 4-hole plate and screws total of 4 passed from the operative field. The fracture was then reduced and temporarily fixated utilizing bone reduction forceps and fixated utilizing standard AO technique with Viburnum 28 5 hole straight plate and 2.5 mm locking screws and nonlocking screws. Excellent bony apposition and compression noted. Excellent stability of the fracture was appreciated and temporary fixation was removed. The incision was irrigated with copious amounts of sterile skin solution. Intraoperative C arm AP, oblique and lateral views confirmed excellent placement of hardware without violating incisions joints or being excessively proud. The incision was flushed with saline solution and closed in a layered fashion. Periosteum reapproximated utilizing 3-0 Vicryl. Subcutaneous tissue with 4-0 Vicryl and skin with 4-0 nylon. The incision was dressed with Adaptic, sterile 4 x 4's, Kerlix and Baljit wrap. New cam boot was applied. Tourniquet was deflated and a prompt hyperemic response was noted to the distal digits of the left foot. Patient tolerated procedure well and was transferred to the PACU with vital signs stable vascular status intact. Following a period of postop monitoring he will be discharged home. Was given at home care instructions as well as follow-up. He is to remain nonweightbearing to the left foot.
[2022-05-24] MEDS: TRAMadol 50 mg Tablet PO (10:29)
--- NOTE | 2022-05-24 19:44 | ANE.PACU2 ---
Inpatient post-anesthesia follow up: Airway intact: Yes Vital signs: Temperature 97.1 F Pulse Rate 60 Respiratory Rate 17 Blood Pressure 132/87 Pulse Oximetry 99 Oxygen Delivery Me thod Room Air Oxygen Flow Rate Fraction of Inspir ed Oxygen Hydration adequate: Yes Nausea and vomiting: No Pain level: 1 Mental status: Baseline
== END 2022-05-24 10:50 | disposition home or self-care (01) ==
PROVIDERS: PCP Family Medicine; Visit Provider Podiatrist Foot & Ankle Surgery
PROC: (CPT 28485; principal; 2022-05-24 08:20)
DX: S92.352A Displaced fracture of fifth metatarsal bone, left foot, initial encounter for closed fracture (principal); W19.XXXA Unspecified fall, initial encounter; K21.9 Gastro-esophageal reflux disease without esophagitis; E11.9 Type 2 diabetes mellitus without complications; E66.01 Morbid (severe) obesity due to excess calories; Z68.31 Body mass index [BMI] 31.0-31.9, adult; Z79.84 Long term (current) use of oral hypoglycemic drugs
CPT/HCPCS: 20680; 28485; 36416; 73620; 76000; 82962; C1713; C9290; J2250; J2704; J3010; J3490; J7030

== ENCOUNTER → 2022-06-06 14:00 | Outpatient (BNVA) | payer MEDICARE, SELFPAY | PROVIDERS: PCP Family Medicine; Visit Provider Podiatrist Foot & Ankle Surgery | DX: Z98.890 Other specified postprocedural states (principal); S92.352D Displaced fracture of fifth metatarsal bone, left foot, subsequent encounter for fracture with routine healing; X58.XXXD Exposure to other specified factors, subsequent encounter; Z79.84 Long term (current) use of oral hypoglycemic drugs | CPT/HCPCS: 73630; 99024 ==

== ENCOUNTER → 2022-06-20 12:49 | Outpatient (BNVA) | payer MEDICARE, SELFPAY | PROVIDERS: PCP Family Medicine; Visit Provider Podiatrist Foot & Ankle Surgery | DX: Z98.890 Other specified postprocedural states (principal); S92.352D Displaced fracture of fifth metatarsal bone, left foot, subsequent encounter for fracture with routine healing; X58.XXXD Exposure to other specified factors, subsequent encounter | CPT/HCPCS: 73630; 99024 ==

== ENCOUNTER 2022-07-03 12:55 | Emergency (ER) | payer MEDICARE, SELFPAY ==
[2022-07-03 12:57] VITALS: BP 170/106; PULSE 64; RESP 16; TEMP 37.2; O2SAT 99
--- NOTE | 2022-07-03 13:14 | ECG_ITS ---
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 Measurements Intervals [place] Rate: P: 0 [place]: 0 QRS: 0 QRSD: 0 T: 0 QT: 0 QTc: 0 Interpretive Statements SINUS BRADYCARDIA Compared to ECG 05/07/2017 12:05:10 First degree AV block no longer present Electronically Signed On 07-03-2022 17:30:09 GRADUATE INTERN by Alexandro Flores M.D. [email or web address]
--- NOTE | 2022-07-03 13:15 | W.ED.DIZZY ---
HPI - Dizziness General: Chief Complaint: Dizziness Stated Complaint: dizzy, AMS Time Seen by Provider: 07/03/22 13:02 Source: patient Mode of arrival: wheelchair Limitations: no limitations History of Present Illness: HPI Narrative: Patient is a 62-year-old male with an extensive PMH here for complaints of dizziness. Patient states dizziness began about an hour or so after waking up this morning. He states it has persisted throughout the day. He went to [facility] for a scheduled appointment states while there the dizziness worsened causing him to have trouble ambulating thus they recommended coming to the ED. Patient states he has a history of dizziness beginning at least a year ago. He reports several syncopal episodes/falls secondary to this. He states they initially thought it was secondary to his blood pressure medications and hypotension therefore these were adjusted. He later states he was getting dizzy in the evenings after taking all of his evening medications so they thought it was possibly a side effect of these. Reports dizziness previously has been positional. He states over the past 2 months he has not had any episodes or if so they were mild. Patient does not know all of his current medications. Going by his last medication reconciliation-he takes over 20 different medications. MD elicited complaint: dizziness Onset (ago): hour(s) Timing: gradual onset Severity: moderate Description: lightheadedness History of similar symptoms: Yes Exacerbating factors: movement/ambulation Relieving factors: remaining still Associated symptoms: Reports no associated symptoms; Denies chest pain, chills, headache(s), malaise, nausea, palpitations, syncope or vomiting Associated neuro symptoms: Reports no associated symptoms; Deny confusion or numbness in extremities Stroke scale total: 0 Review of Systems Const: Denies: fever(s), chills, body aches, fatigue or malaise Eyes: Denies: change in vision, blurry vision, blind spots, photophobia, floaters or seeing flashes Card: Reports: lightheadedness; Denies: chest pain, palpitations, irregular heart rhythm, edema, swelling of feet/ankles, syncope, pre-syncope, dyspnea on exertion, orthopnea, leg pain with exertion or acrocyanosis Resp: Denies: dyspnea GI: Denies: abdominal pain, nausea or vomiting Musc: Denies: neck pain, back pain, extremity pain or joint pain Skin/Breast: Denies: rash Neuro: Reports: frequent falls and dizziness; Denies: headache(s), numbness in extremities, weakness in extremities, sensory changes, confusion, behavioral changes, difficulty communicating thoughts or seizure-like activity PFSH ED PFSH: Medical History DISH (diffuse idiopathic skeletal hyperostosis) Generalized anxiety disorder 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, recurrent episode with mood-congruent psychotic features Psychiatric care Social History Smoking and tobacco status: never smoked Alcohol intake: never Current occupation: disability Physical Exam Const: COMMON NORMALS: no acute distress, patient oriented x3, no limitations, healthy appearing and alert GENERAL APPEARANCE: cooperative NUTRITIONAL APPEARANCE: overweight ORIENTATION/CONSCIOUSNESS: Yes awake, Yes oriented to person, Yes oriented to place and Yes oriented to time HENMT: COMMON NORMALS: normocephalic and atraumatic HEAD & SCALP: normal to inspection, normocephalic and atraumatic FACE & SINUS: normal facial exam TEETH & GINGIVA: Yes edentulous Eye: COMMON NORMALS: Equal, round and reactive pupils present and EOMs intact bilaterally GENERAL EYE: appearance normal, both eyes and all related structures and normal light reflex VISUAL ACUITY: Yes acuity normal PUPIL: Yes Equal, round and reactive pupils present DIRECT OPHTHALMOSCOPY: Yes normal light reflex OTHER: no nystagmus noted Neck/C-Spine: COMMON NORMALS: full ROM, no lymphadenopathy, supple and no meningeal signs GENERAL: Yes normal visual inspection Resp: COMMON NORMALS: normal respiratory effort and clear to auscultation bilaterally AUSCULTATION: clear to auscultation bilaterally Cardio: COMMON NORMALS: regular rate and regular rhythm RATE: regular rate RHYTHM: regular rhythm GI: COMMON NORMALS: Normal to inspection, nondistended, normoactive bowel sounds present, Soft to palpation, non-tender, No hepatosplenomegaly present and no masses PALPATION: Yes Soft to palpation and Yes No hepatosplenomegaly present Extremity: COMMON NORMALS: normal to inspection, no clubbing, cyanosis or edema, no calf tenderness and no pedal edema GENERAL: Yes normal exam except as noted Neuro: LUIS COMA SCALE: document GCS findings Luis coma scale eye opening: Spontaneous [place] coma scale verbal response: Orientated Luis coma scale motor response: Obey commands [place] coma scale total score: 15 COMMON NORMALS: patient oriented x3, CN's II-XII intact bilaterally, moves all extremities, no focal motor deficits and no sensory deficits noted SENSORIUM/ORIENTATION: Yes alert, Yes oriented to person, Yes oriented to place and Yes oriented to time MENINGEAL SIGNS: Yes no meningeal signs SPEECH: speech normal MOTOR EXAM: 5/5 motor strength present throughout Skin: COMMON NORMALS: no rashes or lesions noted GENERAL SKIN EXAM: no rashes or lesions noted Course Vital Signs: Vital signs: Vital Signs Temperature 98.9 F 07/03/22 12:57 Pulse Rate 69 07/03/22 14:30 Respiratory Rate 19 H 07/03/22 14:30 Blood Pressure 152/85 07/03/22 14:30 Pulse Oximetry 97 07/03/22 14:30 Oxygen Delivery Me thod 07/03/22 14:14 MDM - Dizziness Medical Decision Making Patient has been hypertensive here but this is improved after IV hydralazine. He was also given PO meclizine and fluids. Upon re-examination patient feels like his dizziness has much improved. He was ambulated here in the ED did so without difficulty. Patient reports that his blood pressures often go up and down and is wary about any blood pressure adjustments from our visit today. Patient is on over 20 different medications. Certainly his dizziness could be secondary to polypharmacy. He has never had any type of cardiac evaluation for the dizziness. He states he was told he had a cardiac murmur previously but never had any follow up for this. Patient states that this time he would like to follow-up with his primary care provider and do a thorough medication reconciliation and see if they would like to refer him to cardiology. I think this is acceptable. Return ED precautions given. Lab Data 07/03/22 13:30 07/03/22 13:30 Laboratory Results WBC 5.7 10^3/uL (4.0-10.0) 07/03/22 13:30 RBC 3.82 10^6/uL (4.1-5.3) L 07/03/22 13:30 Hgb 11.4 g/dL (11.7-16.6) L 07/03/22 13:30 Hct 35.4 % (42.0-52.0) L 07/03/22 13:30 MCV 92.7 fl (80-94) 07/03/22 13:30 MCH 29.8 pg (28.0-34.0) 07/03/22 13:30 MCHC 32.2 g/dL (30.0-36.0) 07/03/22 13:30 RDW 11.9 % (12.1-15.1) L 07/03/22 13:30 Plt Count 269 10^3/cmm (130-400) 07/03/22 13:30 MPV 10.4 fL (7.4-10.4) 07/03/22 13:30 Neut % (Auto) 48.5 % 07/03/22 13:30 Lymph % (Auto) 36.2 % 07/03/22 13:30 [place] % (Auto) 10.4 % 07/03/22 13:30 Eos % (Auto) 3.4 % 07/03/22 13:30 Baso % (Auto) 1.1 % 07/03/22 13:30 Neut # (Auto) 2.75 10^3/uL (1.8-7.7) 07/03/22 13:30 Lymph # (Auto) 2.1 10^3/uL (0.8-4.8) 07/03/22 13:30 [place] # (Auto) 0.6 10^3/uL (0.2-0.9) 07/03/22 13:30 Eos # (Auto) 0.2 10^3/uL (0.0-0.8) 07/03/22 13:30 Baso # (Auto) 0.1 10^3/uL (0.0-0.1) 07/03/22 13:30 Nucleated RBC % (auto) 0 % 07/03/22 13:30 Nucleated RBCs # 0.0 /100WBC 07/03/22 13:30 Sodium 139 mmol/L (136-145) 07/03/22 13:30 Potassium 4.6 mmol/L (3.5-5.1) 07/03/22 13:30 Chloride 104 mmol/L (98-107) 07/03/22 13:30 Carbon Dioxide 23 mmol/L (22-29) 07/03/22 13:30 Anion Gap 16.6 (5-19) 07/03/22 13:30 BUN 20 mg/dL (8-23) 07/03/22 13:30 Creatinine 1.4 mg/dL (0.7-1.2) H 07/03/22 13:30 GFR Calculation 51.2 mL/min (90-130) L 07/03/22 13:30 Glucose 127 mg/dL (65-115) H 07/03/22 13:30 Calculated Osmolality 292 mOsm/kg (285-295) 07/03/22 13:30 Calcium 9.3 mg/dL (8.5-10.5) 07/03/22 13:30 Total Bilirubin 0.6 mg/dL (0.15-1.2) 07/03/22 13:30 AST 18 U/L (0-40) 07/03/22 13:30 ALT 13 U/L (0-41) 07/03/22 13:30 Alkaline Phosphatase 68 U/L (40-130) 07/03/22 13:30 Total Protein 6.8 g/dL (6.6-8.7) 07/03/22 13:30 Albumin 4.2 g/dL (3.5-5.2) 07/03/22 13:30 Globulin 2.6 g/dL (1.3-4.6) 07/03/22 13:30 Urine Color Yellow (Yellow) 07/03/22 14:30 Urine Appearance Clear (CLEAR) 07/03/22 14:30 Urine pH 5 (5-7) 07/03/22 14:30 Ur Specific [place] 1.020 (1.005-1.030) 07/03/22 14:30 Urine Protein Neg (Negative) 07/03/22 14:30 Urine Glucose (UA) Norm (Normal) 07/03/22 14:30 Urine Ketones Negative (Negative) 07/03/22 14:30 Urine Blood Neg (Negative) 07/03/22 14:30 Urine Nitrate Negative (Negative) 07/03/22 14:30 Urine Bilirubin Neg (Negative) 07/03/22 14:30 Urine Urobilinogen 1 mg/dL (Negative) H 07/03/22 14:30 Ur Leukocyte Esterase Negative (Negative) 07/03/22 14:30 Discharge Plan Discharge Patient Disposition: Home Clinical Impression: Dizziness Condition: Stable Prescriptions: No Action omega-3 fatty acids [Fish Oil Concentrate] 1,000 mg capsule 1,000 mg PO DAILY vitamin B complex [B Complex-Vitamin B12] Tablet 1 tab PO DAILY magnesium 250 mg tablet 400 mg PO DAILY calcium carbonate-vitamin D3 [Calcium 500 + D] 500 mg(1,250mg) -200 unit tablet 1 tab PO BEDTIME potassium gluconate 595 mg (99 mg) tablet 595 mg PO DAILY garlic 1,000 mg capsule 1,000 mg PO DAILY ascorbate calcium (vitamin C) 500 mg tablet 500 mg PO DAILY gfkv-ipcghk-eeyg.-chrom-gr tea 2-100 gram-mcg tablet,chewable 1 tab PO DAILY biotin 2,500 mcg capsule 5,000 mcg PO DAILY acetaminophen [Tylenol Extra Strength] 500 mg tablet 2,000 mg PO BID Rx Instructions: every am (DME) lancing device [TRUEdraw Lancing Device] [facility] [place] [place] See Rx Instructions .Route Qty: 1 0RF Rx Instructions: As directed to test blood sugar BID (DME) diabetic supplies, miscellan. [facility] [place] [place] See Rx Instructions .ROUTE .MEDSUPPLY Qty: 1 0RF Rx Instructions: Shoes and inserts. quetiapine [Seroquel] 100 mg tablet 100 mg PO .9:30 pm Qty: 90 2RF Rx Instructions: Take one tablet at 9:30 pm (after chores outside are done) venlafaxine [Effexor XR] 150 mg capsule,extended release 24hr 150 mg PO QAM Qty: 90 2RF Rx Instructions: Take one capsule every morning buspirone 10 mg tablet 20 mg PO .morning Qty: 180 2RF Rx Instructions: Take two tablets every morning ziprasidone HCl [Geodon] 40 mg capsule 40 mg PO .6 pm Qty: 30 3RF Rx Instructions: Take one capsule at 6 pm with 500 calorie meal gabapentin 300 mg capsule 600 mg PO DAILY 14 Days Qty: 28 0RF gabapentin 300 mg capsule 600 mg PO DAILY 30 Days Qty: 60 2RF Rx Instructions: Take 2 Caps at Bedtime (DME) lancets [TRUEplus Lancets] 28 gauge [facility] [place] See Rx Instructions .Route Qty: 200 3RF Rx Instructions: As directed to test BID (DME) True Metrix Glucose Test Strip Strip See Rx Instructions .Route Qty: 200 3RF Rx Instructions: to test BS BID (DME) blood-glucose meter [True Metrix Glucose Meter] Kit See Rx Instructions .Route Qty: 1 0RF Rx Instructions: As directed to test BS BID lisinopril 10 mg tablet 10 mg PO DAILY Qty: 90 3RF (DME) blood pressure monitor See Rx Instructions .Route .MEDSUPPLY Qty: 1 0RF Rx Instructions: As directed levothyroxine 75 mcg tablet 75 mcg PO DAILY Qty: 90 3RF Rx Instructions: needs labs for refills pantoprazole 40 mg tablet,delayed release (DR/EC) 40 mg PO DAILY Qty: 30 5RF meloxicam 15 mg tablet See Rx Instructions .ROUTE .COMPLEX Qty: 90 0RF Dose Instruction: TAKE 1 TABLET EVERY DAY Rx Instructions: TAKE 1 TABLET EVERY DAY terbinafine HCl 250 mg tablet 250 mg PO DAILY Qty: 90 1RF metformin 1,000 mg tablet 1,000 mg PO BID Qty: 180 3RF simvastatin 40 mg tablet See Rx Instructions .ROUTE .COMPLEX Qty: 90 3RF Dose Instruction: TAKE 1 TABLET EVERY DAY Rx Instructions: TAKE 1 TABLET EVERY DAY atenolol 25 mg tablet 25 mg PO BID montelukast [Singulair] 10 mg tablet 10 mg PO BEDTIME bimatoprost 0.03 % Drops 1 drp OPHTHALMIC (EYE) BEDTIME aspirin 81 mg Tablet,Delayed Release (Dr/Ec) 81 mg PO DAILY cholecalciferol (vitamin D3) [Vitamin D3] 10 mcg (400 unit) Capsule 10 mcg PO DAILY Discharge Orders: Discharge ED (Routine); Ordered 07/03/22 Ordered By: Inge Calvo Referrals: Esvin Villeda DO [Primary Care Provider] - Patient Instructions: Dizziness (ED) Coding Level of Care Code ED Canvas Shrinker for Anastasiiag Jayson
[2022-07-03] MEDS: sodium chloride 0.9% 1,000 ML 999 ML IV (13:37)
[2022-07-03 13:38] LABS: Basophils # 0.1 10^3/uL (0.0-0.1); Basophils % 1.1 %; Eosinophils # 0.2 10^3/uL (0.0-0.8); Eosinophils % 3.4 %; Hematocrit 35.4 % (42.0-52.0); Hemoglobin 11.4 g/dL (11.7-16.6); Lymphocytes # 2.1 10^3/uL (0.8-4.8); Lymphocytes % 36.2 %; Mean Corpuscular HGB Conc 32.2 g/dL (30.0-36.0); Mean Corpuscular Hemoglobin 29.8 pg (28.0-34.0); Mean Corpuscular Volume 92.7 fl (80-94); Mean Platelet Volume 10.4 fL (7.4-10.4); Monocytes # 0.6 10^3/uL (0.2-0.9); Monocytes % 10.4 %; Neutrophils # 2.75 10^3/uL (1.8-7.7); Neutrophils % 48.5 %; Nucleated Red Blood Cells % 0 %; Platelet Count 269 10^3/cmm (130-400); Red Blood Count 3.82 10^6/uL (4.1-5.3); Red Cell Distribution Width 11.9 % (12.1-15.1); White Blood Count 5.7 10^3/uL (4.0-10.0)
[2022-07-03] MEDS: meclizine 25 mg tablet 50 MG PO (13:40)
[2022-07-03 13:47] VITALS: BP 166/88; BP 179/97; BP 191/103; PULSE 62; PULSE 64; PULSE 67
[2022-07-03 14:02] LABS: Alanine Aminotransferase 13 U/L (0-41); Albumin Level 4.2 g/dL (3.5-5.2); Alkaline Phosphatase 68 U/L (40-130); Anion Gap 16.6 (5-19); Aspartate Amino Transferase 18 U/L (0-40); Blood Urea Nitrogen 20 mg/dL (8-23); Calcium 9.3 mg/dL (8.5-10.5); Carbon Dioxide 23 mmol/L (22-29); Chloride 104 mmol/L (98-107); Globulin 2.6 g/dL (1.3-4.6); Glomerular Filtration Rate 51.2 mL/min (90-130); Glucose 127 mg/dL (65-115); Osmolality Calculated 292 mOsm/kg (285-295); Potassium 4.6 mmol/L (3.5-5.1); Sodium 139 mmol/L (136-145); Total Bilirubin 0.6 mg/dL (0.15-1.2); Total Protein 6.8 g/dL (6.6-8.7)
[2022-07-03 14:14] VITALS: BP 142/85; PULSE 63; RESP 28; O2SAT 98
[2022-07-03] MEDS: hyDRALAzine 20 mg/mL INJ 1 mL 10 MG IVP (14:18)
[2022-07-03 14:30] VITALS: BP 152/85; PULSE 69; RESP 19; O2SAT 97
[2022-07-03 14:44] LABS: Add Urine Microscopic? NO; Charge for UA Resulting for Rev
[2022-07-03 14:46] LABS: Bilirubin Urine Neg (Negative); Blood Urine Neg (Negative); Glucose Urine UA Norm (Normal); Ketones Urine Negative (Negative); Leukocyte Esterase Urine Negative (Negative); Nitrate Urine Negative (Negative); Protein Urine Neg (Negative); Urine Appearance Clear (CLEAR); Urine Color Yellow (Yellow); Urobilinogen Urine 1 mg/dL (Negative); pH Urine 5 (5-7)
[2022-07-03 15:00] VITALS: BP 152/85; PULSE 65; RESP 19; O2SAT 97
[2022-07-03 15:18] VITALS: BP 179/95; PULSE 70; RESP 18; O2SAT 98
== END 2022-07-03 15:19 | disposition home or self-care (01) ==
PROVIDERS: Emergency Provider Physician Assistant; PCP Family Medicine
DX: R42 Dizziness and giddiness (principal); Z79.82 Long term (current) use of aspirin; Z79.84 Long term (current) use of oral hypoglycemic drugs
CPT/HCPCS: 80053; 81003; 85025; 93005; 96361; 96374; 99284; J0360; J7030; J8597

== ENCOUNTER → 2022-07-04 12:53 | Outpatient (BNVA) | payer MEDICARE, SELFPAY | PROVIDERS: PCP Family Medicine; Visit Provider Podiatrist Foot & Ankle Surgery | DX: Z98.890 Other specified postprocedural states (principal); S92.352D Displaced fracture of fifth metatarsal bone, left foot, subsequent encounter for fracture with routine healing; X58.XXXD Exposure to other specified factors, subsequent encounter | CPT/HCPCS: 73630; 99024 ==

== ENCOUNTER → 2022-07-17 09:27 | Outpatient (BNVA) | payer MEDICARE, SELFPAY | PROVIDERS: PCP Family Medicine; Visit Provider Family Medicine | DX: E03.9 Hypothyroidism, unspecified (principal); E11.9 Type 2 diabetes mellitus without complications; I10 Essential (primary) hypertension; E11.49 Type 2 diabetes mellitus with other diabetic neurological complication | CPT/HCPCS: 80053; 80061; 83036; 84439; 84443; 85025 ==

== ENCOUNTER → 2022-07-18 09:10 | Outpatient (BNVA) | payer MEDICARE, SELFPAY | PROVIDERS: PCP Family Medicine; Visit Provider Podiatrist Foot & Ankle Surgery | DX: L60.3 Nail dystrophy (principal); L60.0 Ingrowing nail | CPT/HCPCS: 11750; A6219; A6446 ==

== ENCOUNTER → 2022-08-08 09:08 | Outpatient (BNVA) | payer MEDICARE, SELFPAY | PROVIDERS: PCP Family Medicine; Visit Provider Podiatrist Foot & Ankle Surgery | DX: B35.1 Tinea unguium (principal); L60.0 Ingrowing nail; L60.3 Nail dystrophy; Z98.890 Other specified postprocedural states | CPT/HCPCS: 11750; A6219; A6446 ==

== ENCOUNTER → 2022-09-02 11:43 | Outpatient (BNVA) | payer MEDICARE, SELFPAY | PROVIDERS: PCP Family Medicine; Visit Provider Podiatrist Foot & Ankle Surgery | DX: R55 Syncope and collapse (principal); R07.89 Other chest pain; I10 Essential (primary) hypertension; E11.9 Type 2 diabetes mellitus without complications; F33.3 Major depressive disorder, recurrent, severe with psychotic symptoms; E03.9 Hypothyroidism, unspecified; B35.1 Tinea unguium; L60.3 Nail dystrophy; Z98.890 Other specified postprocedural states | CPT/HCPCS: 99204; 99213 ==

== ENCOUNTER 2022-09-26 09:17 | Outpatient (CLI) | payer MEDICARE, SELFPAY ==
--- NOTE | 2022-09-26 10:00 | USCV_ITS ---
Sandip Hirsch Age: 62 Gender: M : 1960 Exam Date: 09/26/2022 09:44 Ordering Phys: Wai Nava MD ([email or web address]) Technologist: TAMMY Exam Location: [facility] [place] Indication: AORTIC VALVE MURMUR BP: 151 / 91 HR: 52 Rhythm: Sinus Technical Quality: Adequate MEASUREMENTS (Male / Female) Normal Values 2D ECHO LVOT Diameter 2.0 cm LV Ejection Fraction MOD 2C 66.2 % LV Ejection Fraction 2C AL 69.2 % LA Diameter 4.2 cm LA Width 4.3 cm LA Height 5.2 cm RA Width 3.7 cm RA Height 4.6 cm Aorta at Sinotubular Diameter 2.6 cm IVC Diameter 1.3 cm M-MODE Aortic Annulus Diameter 2.2 cm LA Ao Ratio MM 1.9 MV E Point Septal Separation 0.3 cm DOPPLER AV Peak Velocity 219.2 cm/s LVOT Peak Velocity 104.0 cm/s AV Area Cont Eq vti 1.4 cm squared AV Area Cont Eq pk 1.5 cm squared MV Peak Velocity 88.0 cm/s MV Area PHT 3.7 cm squared Mitral E to A Ratio 1.0 MV E' Velocity 43.0 cm/s Mitral E to MV E' Ratio 6.4 Mitral E to LV E' Lateral Ratio 5.5 Mitral E to LV E' Septal Ratio 7.7 TR Peak Velocity 183.2 cm/s TR Peak Gradient 13.4 mmHg TR Mean Velocity 136.7 cm/s TR Mean Gradient 8.2 mmHg TR Velocity Time Integral 58.7 cm TV Peak E Velocity 53.0 cm/s Right Atrial Pressure 3.0 mmHg Pulmonary Artery Systolic Pressu 16.4 mmHg PV Peak Velocity 127.0 cm/s RV Acceleration Time 0.1 s RV Ejection Time 0.3 s RV AcT/ET 0.4 FINDINGS Left Ventricle Normal left ventricular size and systolic function, EF 66 %. No regional wall motion abnormalities. Right Ventricle The right ventricle is normal in size and function. Right Atrium The right atrium is normal in size. Left Atrium Mildly increased left atrial size. Mitral Valve No gross abnormalities noted Aortic Valve Thickened aortic valve. Mild aortic valve calcification. Mild aortic valve stenosis, mean gradient 10.5 mmHg, CARMELA 1.4 cm squared. Peak velocity of 2.25 m/s with a peak gradient of 20 and a mean gradient of 12 mmHg Tricuspid Valve Trace tricuspid valve regurgitation. Pulmonic Valve No gross abnormalities noted Pericardium Normal pericardium without effusion. Aorta Normal ascending aorta dimension. IVC The inferior vena cava appears normal. CONCLUSIONS Normal left ventricular size and systolic function, EF 66 %. No regional wall motion abnormalities. Mildly increased left atrial size. Mild aortic valve stenosis, mean gradient 10.5 mmHg, CARMELA 1.4 cm squared. Peak velocity of 2.25 m/s with a peak gradient of 20 and a mean gradient of 12 mmHg Mild aortic valve calcification. Trace tricuspid valve regurgitation. Estimated pulmonary artery peak systolic pressure within normal limits There is no pericardial effusion. There are no intracardiac masses. Compared to the study from 02/14/2020 there is slight worsening of the aortic valve stenosis Dr Wai Nava MD [facility] (Electronically Signed) Final Date: 27 Sep 2022 16:32 S
== END 2022-09-26 09:18 | disposition home or self-care (01) ==
LOC: RAD 09:20
PROVIDERS: PCP Family Medicine; Visit Provider Internal Medicine Cardiovascular Disease
DX: R06.09 Other forms of dyspnea (principal); I35.8 Other nonrheumatic aortic valve disorders; I35.0 Nonrheumatic aortic (valve) stenosis; I70.0 Atherosclerosis of aorta
CPT/HCPCS: 93306; 99204

== ENCOUNTER → 2022-09-30 10:54 | Outpatient (BNVA) | payer MEDICARE, SELFPAY | PROVIDERS: PCP Family Medicine; Visit Provider Podiatrist Foot & Ankle Surgery | DX: L60.3 Nail dystrophy (principal); Z98.890 Other specified postprocedural states; E11.9 Type 2 diabetes mellitus without complications; Z79.84 Long term (current) use of oral hypoglycemic drugs | CPT/HCPCS: 99213 ==

== ENCOUNTER → 2022-11-27 14:23 | Outpatient (BNVA) | payer MEDICARE, SELFPAY | PROVIDERS: PCP Family Medicine; Visit Provider Podiatrist Foot & Ankle Surgery | DX: M25.571 Pain in right ankle and joints of right foot (principal); G89.29 Other chronic pain; M25.371 Other instability, right ankle | CPT/HCPCS: 73610; 99214 ==

== ENCOUNTER → 2022-12-24 12:45 | Outpatient (BNVA) | payer MEDICARE, SELFPAY | PROVIDERS: PCP Family Medicine; Visit Provider Internal Medicine Cardiovascular Disease | DX: I10 Essential (primary) hypertension (principal); R55 Syncope and collapse; E03.9 Hypothyroidism, unspecified; E11.9 Type 2 diabetes mellitus without complications; Z79.84 Long term (current) use of oral hypoglycemic drugs; L97.512 Non-pressure chronic ulcer of other part of right foot with fat layer exposed | CPT/HCPCS: 99213; 99214 ==

== ENCOUNTER → 2023-01-01 08:20 | Outpatient (BNVA) | payer MEDICARE, SELFPAY | PROVIDERS: PCP Family Medicine; Visit Provider Family Medicine | DX: E11.49 Type 2 diabetes mellitus with other diabetic neurological complication (principal); M79.2 Neuralgia and neuritis, unspecified; Z51.89 Encounter for other specified aftercare | CPT/HCPCS: 83036; 99213 ==

== ENCOUNTER 2023-01-15 14:00 | Outpatient (CLI) | payer MEDICARE, MEDICAID, SELFPAY ==
--- OUTSIDE RECORDS SUMMARY | 2022-12-31 08:23 | XMS_ITS | Patient Health Record ---
Author Name Unknown Organization [facility] Address [address] [place] [address] Care Team Providers Care Biofuels Processing Technician Name Role Phone Esvin Villeda DO Primary Care Provider Unavail able Cierra Riddle Unavailable [phone] Jennifer Longoria APRN Unavailable Unavailable Robert Esteban Unavailable [phone] ALLERGIES Allergen (clinical drug ingredient) Drug/Non Drug Allergy documented on EMR Reaction Allergy Type Onset Date Status carisoprodol Carisoprodol Unknown Drug Allergy A ctive Penicillin swelling Drug Allergy Active REASON FOR REFERRAL No Information MEDICATIONS Medication SIG (Take, Route, Frequency, Duration) Notes Start Date End Date Status Pantoprazole Sodium 40 MG 1 tablet Orally Once a day for 30 day(s) Patient must be seen in office for further refills. Active Simvastatin 40 MG 1 tablet in the evening Orally Once a day Active Calcium Carbonate-Vitamin D3 600-400 MG-UNIT 1 tablet with a meal Orally Once a day Active SEROquel 25 MG 1 tablet at bedtime Orally Once a day Active busPIRone HCl 10 MG 1 tablet Orally TID Active Potassium Gluconate 595 (99 K) MG 1 tablet Orally Once a day Active Biotin 1 MG as directed Orally Active Ziprasidone HCl 80 MG 1 capsule with [place] d Orally Twice a day Active Magnesium 500 MG 1 tablet with a meal Orally Once a day Active Atenolol 25 MG 1 tablet Orally Once a day for 30 Active Vitamin B Complex - as directed Orally Active Levothyroxine Sodium 75 MCG 1 tablet in the morning on an empty stomach Orally Once a day Active Venlafaxine HCl ER 150 MG 1 tablet with food Orally Once a day Active Ibuprofen 400 MG 1 tablet with food or milk as needed Orally Active Venlafaxine HCl ER 75 MG 1 capsule with food Orally Once a day Active Garlic 1000 MG as directed Orally Active [place] 3 1200 MG 1 capsule Orally Once a day Active Aspirin 81 MG 1 tablet Orally Once a day Active Multivitamin - 1 tablet Orally Once a day Active Ascorbic Acid 500 MG 1 tablet Orally Once a day Active Montelukast Sodium 10 MG 1 tablet Orally Once a day Active Acetaminophen 500 MG 2 tablets Orally as needed Active metFORMIN HCl 1000 MG 1 tablet with a meal Orally bid Active Lisinopril 10 MG 1 tablet Orally Once a day for 30 Active SOCIAL HISTORY Tobacco Use: Social History Observation Description Date Details (start date - stop date) Never Smoker NA - NA Sex Assigned At : Social History Observation Description Sex Assigned At Unknown Tobacco Use/Smoking Question Answer Notes Are you a nonsmoker Alcohol Screen (Audit-C) Question Answer Notes Did you have a drink containing alcohol in the p ast year? No Points 0 Interpretation Negative Encounters Encounter Location Date Provider Diagnosis [facility] [address] [place] [address] 03/18/2022 Robert Esteban [facility] [address] [place] [address] 05/08/2022 Robert Esteban PLAN OF TREATMENT Pending Test Test Name Order Date EGD, Upper GI [id number] 1 Insurance Providers Payer Name Payer Address Payer Phone Subscriber Number Group Number Insured Name Patient Relationship to Insured Coverage Start Date Coverage End Date [employer] Medicare Replacement [address] [address] [place] [address] [id number] Sandip Hirsch Self - patient is the insured MEDICAL (GENERAL) HISTORY Medical History History ICD Code anxiety intellectual disease depression diabetes thyroid disorder diabetic neuropathy hypertension Surgical History Surgery Date(Month/Year) foot surgery Hospitalization History Reason Date(Month/Year) see surgical hx
--- NOTE | 2023-01-15 14:15 | USCV_ITS ---
Joycelyn Snadip Age: 62 Gender: M : 1960 Exam Date: 01/15/2023 14:33 Ordering Phys: Wai Nava MD ([email or web address]) Technologist: Freida Villalobos [place] [facility] [place]: CCA STENOSIS Risk Factors: Unknown Previous Vascular Surgery: None Right Brachial BP: / Left Brachial BP: / Right Left Velocity (cm/s) Spectral Plaque Velocity (cm/s) Spectral Plaque Syst/Diast Broadening Syst/Diast Broadening 126.80/47.40 Prox CCA 100.80/ 26.60 81.60/ 30.90 Mid CCA 58.30 / 23.20 75.00/ 23.20 Distal CCA 47.20 / 22.30 87.50/ 27.40 Prox ICA 73.80 / 19.70 78.00/ 30.90 Mid ICA 47.20 / 20.60 83.20/ 28.30 Distal ICA 61.80 / 21.40 105.80 ECA 91.80 1.07 ICA/CCA 1.26 Antegrade Vertebral Antegrade 44.60/ 15.40 cm/s 19.90/ 7.20 cm/s Bi Subclavian Bi 131.5 146.9 0 0 FINDINGS Minimal plaques at the bifurcations and proximal internal carotid arteries bilaterally. Intimal thickening in the common carotid arteries bilaterally Antegrade flow in the vertebral arteries bilaterally Normal Doppler flow velocities in the external carotid and subclavian arteries bilaterally CONCLUSIONS Minimal plaques at the bifurcations and proximal internal carotid arteries bilaterally, suggesting less than 50% stenosis. No significant stenosis in the external carotid, subclavian and vertebral arteries, based on the above findings. No similar previous studies are available for comparison Dr Wai Nava MD [facility] (Electronically Signed) Final Date: 17 January 2023 17:58 S
== END 2023-01-15 14:01 | disposition home or self-care (01) ==
PROVIDERS: PCP Family Medicine; Visit Provider Internal Medicine Cardiovascular Disease
DX: I65.23 Occlusion and stenosis of bilateral carotid arteries
CPT/HCPCS: 93880

== ENCOUNTER → 2023-01-22 12:21 | Outpatient (BNVA) | payer MEDICARE, MEDICAID, SELFPAY | PROVIDERS: PCP Family Medicine; Visit Provider Podiatrist Foot & Ankle Surgery | DX: L97.511 Non-pressure chronic ulcer of other part of right foot limited to breakdown of skin (principal) | CPT/HCPCS: 99213 ==

== ENCOUNTER → 2023-01-29 09:55 | Outpatient (BNVA) | payer MEDICARE, MEDICAID, SELFPAY | PROVIDERS: PCP Family Medicine; Visit Provider Nurse Practitioner Family | DX: M54.9 Dorsalgia, unspecified (principal); Z79.899 Other long term (current) drug therapy | CPT/HCPCS: 81000 ==

== ENCOUNTER 2023-03-11 10:20 | Outpatient (CLI) | payer MEDICARE, SELFPAY ==
--- NOTE | 2023-03-11 11:00 | MR_ITS ---
WS: [id number] MRI LUMBAR SPINE NONCONTRAST HISTORY: Lower extremity pain, bilateral. COMPARISON: 06/16/2018 TECHNIQUE: Sagittal and axial multisequence imaging is submitted. Mild disc space narrowing and desiccation throughout the cervical and thoracic spines. Small central disc protrusion at T3-4. Slight increase in the lumbar lordosis. 2 mm anterolisthesis of L5. No acute fracture. Disc spaces are mildly narrowed and desiccated. Conus terminates normally at L1-2 disc level. L1-L2: Mild annular disc bulging. Disc encroaching upon the thecal sac and the subarticular recesses. Mild facet arthritis. Mild central and bilateral subarticular recess stenosis. Moderate to severe bi lateral foraminal stenosis. L2-L3: Mild annular disc bulging with mild ligamentum flavum and facet arthritis. Small amount of flu id in the facet joints. Severe LEFT foraminal stenosis. Complete effacement of fat in the LEFT forame n. Suspect disc protrusion in the foramen. Moderate RIGHT foramen narrowing. L3-L4: Mild annular disc bulging with mild ligamentum flavum and facet arthritis. Small amount of flu id in the facet joints. Mild central, bilateral subarticular recess and moderate foraminal stenosis. L4-L5: Diffuse marked annular disc bulging with severe facet joint arthritis. Fluid in the facet join ts. Severe central, bilateral subarticular recess and RIGHT foramen stenosis. Moderate stenosis LEFT foramen. L5-S1: Diffuse annular disc bulging. Fluid in the facet joints. Moderate central and bilateral subart icular recess and foraminal stenosis. There is disc contacting the L5 and S1 nerve roots. Slightly gr eater foramen stenosis on the RIGHT. Paravertebral soft tissues are negative. IMPRESSION: 1. Moderate progression of multilevel degenerative disc, facet disease and stenoses since 06/16/2018. 2. L2-3: Severe LEFT foramen stenosis with moderate RIGHT foramen stenosis. 3. L3-4: Mild central, bilateral subarticular recess and moderate foraminal stenosis. 4. L4-5: Severe central, bilateral subarticular recess and RIGHT foramen stenosis. Moderate stenosis LEFT foramen. 5. L5-S1: Moderate central, bilateral subarticular recess and foraminal stenosis. Rater stenosis invo lving the RIGHT foramen.
== END 2023-03-11 10:21 | disposition home or self-care (01) ==
LOC: RAD 10:20
PROVIDERS: PCP Family Medicine; Visit Provider Family Medicine
DX: M51.36 Other intervertebral disc degeneration, lumbar region (principal); M43.16 Spondylolisthesis, lumbar region; M48.07 Spinal stenosis, lumbosacral region
CPT/HCPCS: 72148

== ENCOUNTER → 2023-03-25 14:31 | Outpatient (BNVA) | payer MEDICARE, SELFPAY | PROVIDERS: PCP Family Medicine; Visit Provider Orthopaedic Surgery | DX: M47.816 Spondylosis without myelopathy or radiculopathy, lumbar region (principal); M43.17 Spondylolisthesis, lumbosacral region | CPT/HCPCS: 72100; 99204 ==

== ENCOUNTER → 2023-04-07 13:56 | Outpatient (BNVA) | payer MEDICARE, SELFPAY | PROVIDERS: PCP Family Medicine; Visit Provider Podiatrist Foot & Ankle Surgery | DX: E11.49 Type 2 diabetes mellitus with other diabetic neurological complication (principal); Z79.84 Long term (current) use of oral hypoglycemic drugs | CPT/HCPCS: 99213 ==

== ENCOUNTER → 2023-06-24 11:28 | Outpatient (BNVA) | payer MEDICARE, MEDICAID, SELFPAY | PROVIDERS: PCP Family Medicine; Visit Provider Podiatrist Foot & Ankle Surgery | DX: E11.8 Type 2 diabetes mellitus with unspecified complications (principal); E11.49 Type 2 diabetes mellitus with other diabetic neurological complication; L60.3 Nail dystrophy; Z79.84 Long term (current) use of oral hypoglycemic drugs | CPT/HCPCS: 11721 ==

== ENCOUNTER → 2023-07-02 08:40 | Outpatient (BNVA) | payer MEDICARE, MEDICAID, SELFPAY | PROVIDERS: PCP Family Medicine; Visit Provider Family Medicine | DX: E11.9 Type 2 diabetes mellitus without complications (principal) | CPT/HCPCS: 83036 ==

== ENCOUNTER → 2023-07-08 08:49 | Outpatient (BNVA) | payer MEDICARE, MEDICAID, SELFPAY | PROVIDERS: PCP Family Medicine; Visit Provider Orthopaedic Surgery | DX: M43.17 Spondylolisthesis, lumbosacral region; R55 Syncope and collapse; I10 Essential (primary) hypertension; E11.9 Type 2 diabetes mellitus without complications; E03.9 Hypothyroidism, unspecified; Z79.4 Long term (current) use of insulin; Z79.84 Long term (current) use of oral hypoglycemic drugs | CPT/HCPCS: 72100; 99213; 99214 ==

== ENCOUNTER → 2023-08-14 10:24 | Outpatient (BNVA) | payer MEDICARE, SELFPAY | PROVIDERS: PCP Family Medicine; Visit Provider Orthopaedic Surgery | DX: M48.062 Spinal stenosis, lumbar region with neurogenic claudication (principal) | CPT/HCPCS: 36415; 80053; 81003; 85025; 99214 ==

== ENCOUNTER → 2023-08-26 09:19 | Outpatient (BNVA) | payer MEDICARE, SELFPAY | PROVIDERS: PCP Family Medicine; Visit Provider Family Medicine | DX: Z01.818 Encounter for other preprocedural examination (principal) | CPT/HCPCS: 80048; 93005 ==

== ENCOUNTER → 2023-09-12 08:33 | Outpatient (BNVA) | payer MEDICARE, SELFPAY | PROVIDERS: PCP Family Medicine; Visit Provider Family Medicine | DX: R79.9 Abnormal finding of blood chemistry, unspecified (principal) | CPT/HCPCS: 80053 ==

== ENCOUNTER 2023-09-15 10:11 | Inpatient (IN) | payer MEDICARE, SELFPAY ==
[2023-09-15] VITALS (24 sets, daily range): BP systolic 54–179; BP diastolic 38–116; PULSE 77–105; RESP 14–41; TEMP 36.2–37.1; O2SAT 92–100; BMI 34.7
--- NOTE | 2023-09-15 06:39 | W.PM.OPSUD ---
Surgery/Procedure H&P Update DATE OF PROCEDURE: September 15, 2023 DATE H&P PERFORMED: 08/26/23 H&P UPDATE INFORMATION: I have reviewed H&P completed within last 30 days, I have examined patient prior to procedure and No changes to prior documentation PREOP DIAGNOSIS: Lumbar stenosis with neurogenic claudication PLANNED PROCEDURE: Operation Date: 09/15/23 07:00 Proposed Procedures p Spinal Fusion(Not Applicable) - DO rodolfo Younger Lumbopelvic Fixation(Not Applicable) - DO rodolfo Younger Sacroiliac Joint Fusion open(Bilateral) - Manuel Granger DO
[2023-09-15] MEDS: sodium chloride 0.9% 1,000 ML 30 ML IV (06:47)
[2023-09-15] MEDS: famotidine 20 mg/2 mL INJ IVP (06:53)
[2023-09-15] MEDS: fentaNYL 50 mcg/mL INJ 2mL IVP ×2 (06:54→11:56)
[2023-09-15 06:57] LABS: Alanine Aminotransferase 20 U/L (0-41); Albumin Level 4.5 g/dL (3.5-5.2); Alkaline Phosphatase 82 U/L (40-130); Anion Gap 19.7 (5-19); Aspartate Amino Transferase 22 U/L (0-40); Blood Urea Nitrogen 21 mg/dL (8-23); Calcium 9.8 mg/dL (8.5-10.5); Carbon Dioxide 20 mmol/L (22-29); Chloride 100 mmol/L (98-107); Creatinine Clr Calc Pharmacy 64.1307; Globulin 3.3 g/dL (1.3-4.6); Glucose 155 mg/dL (65-115); Osmolality Calculated 286 mOsm/kg (285-295); Potassium 4.7 mmol/L (3.5-5.1); Sodium 135 mmol/L (136-145); Total Bilirubin 0.6 mg/dL (0.15-1.2); Total Protein 7.8 g/dL (6.6-8.7)
--- NOTE | 2023-09-15 07:02 | P.ANESASSM_ITS ---
Pre-Anesthetic Assessment Height/Weight: Height 1.75 m Weight 106.594 kg Temp Pulse Resp BP Pulse Ox O2 Del Method 97.3 F L 105 H 17 179/116 98 Room Air 09/15/23 06:15 09/15/23 06:15 09/15/23 06:15 09/15/23 06:15 09/15/23 06:15 09/15/23 06:17 Preop Diagnosis: Lumbar stenosis with neurogenic claudication Operation Date: 09/15/23 07:00 Proposed Procedures p Spinal Fusion(Not Applicable) - Manuel Granger DO s Lumbopelvic Fixation(Not Applicable) - DO rodolfo Younger Sacroiliac Joint Fusion open(Bilateral) - Manuel Granger DO Familial anesthetic complications: None Was Beta Frankie taken within 24 hours: N/A Was Clonidine taken within 24 hours: N/A Last intake: Intake Last Liquid Date 09/14/23 Last Liquid Time 20:00 Last Solid Date 09/14/23 Last Solid Time 12:00 Social No alcohol and No tobacco Exam alert, oriented x 3, clear to auscultation bilaterally and regular rate & rhythm Airway Mallampati: Class III Dentition: other (none) CV/HEM Hypertension mild Chronic Renal Insufficiency GI Gastroesophageal Reflux Disease Metabolic Diabetes Mellitus, Morbid Obesity and Thyroid Disease Anesthetic Plan ASA status: 3 Anesthesia: General Risk of > 500 ml blood loss (7ml/kg in children): Yes, adequate IV access and fluids planned Medications/Allergies Home Medications Medication Instructions Recorded Confirmed Last Taken Type omega-3 fatty acids 1,000 mg 1,000 mg PO DAILY 07/06/19 09/12/23 09/05/23 History capsule (Fish Oil Concentrate) vitamin B complex (B 1 tab PO DAILY 07/06/19 09/12/23 09/05/23 History Complex-Vitamin B12 tablet) calcium carbonate 500 mg-vitamin 1 tab PO BEDTIME 11/16/19 09/12/23 09/05/23 History D3 5 mcg (200 unit) tablet (Calcium 500 + D) garlic 1,000 mg capsule 1,000 mg PO DAILY 11/16/19 09/12/23 09/05/23 History potassium gluconate 595 mg (99 mg) 595 mg PO DAILY 11/16/19 09/12/23 09/05/23 History tablet ascorbate calcium (vitamin C) 500 500 mg PO DAILY 11/06/20 09/12/23 09/05/23 History mg tablet qczdzn-ppozxq-njzblhdwc-chrom 1 tab PO DAILY 02/05/21 09/12/23 09/05/23 History poly-grn tea 2 gram-100 mcg chewable tab lancing device (TRUEdraw Lancing #1 ea 03/22/21 08/14/23 Unknown Rx Device) magnesium 250 mg tablet 400 mg PO DAILY 04/13/21 09/12/23 09/05/23 History acetaminophen 500 mg tablet 2,000 mg PO BID pain 06/25/21 09/12/23 09/05/23 History (Tylenol Extra Strength) biotin 2,500 mcg capsule 5,000 mcg PO DAILY 06/25/21 09/12/23 09/05/23 History lancets 28 gauge (TRUEplus Lancets) #200 ea 06/28/21 08/14/23 Unknown Rx diabetic supplies, miscellan. #1 ea 12/10/21 08/14/23 Unknown Rx blood-glucose meter (True Metrix #1 ea 12/19/21 08/14/23 Unknown Rx Glucose Meter kit) blood pressure monitor #1 ea 01/17/22 08/14/23 Unknown Rx aspirin 81 mg tablet,delayed 81 mg PO DAILY 03/14/22 09/12/23 09/05/23 History release cholecalciferol (vitamin D3) 10 10 mcg PO DAILY 03/14/22 09/12/23 09/05/23 History mcg (400 unit) capsule (Vitamin D3) metformin 1,000 mg tablet 1,000 mg PO BID #180 tabs 06/27/22 09/12/23 09/11/23 Rx blood sugar diagnostic (True #200 ea 08/12/22 08/14/23 Unknown Rx Metrix Glucose Test Strip) diabetic supplies, [employer]ellan. #200 ea 09/05/22 08/14/23 Unknown Rx pantoprazole 40 mg tablet,delayed 40 mg PO DAILY #90 tabs 10/30/22 09/12/23 09/11/23 Rx release spectrum AFO #1 ea 11/27/22 08/14/23 Unknown Rx cyclobenzaprine 10 mg tablet 10 mg PO TID PRN muscle spasm #60 02/10/23 09/12/23 09/12/23 Rx tabs gabapentin 300 mg capsule 300 mg PO TID 90 days #270 caps 04/30/23 09/12/23 09/12/23 Rx levothyroxine 75 mcg tablet 75 mcg PO DAILY #90 tabs 04/30/23 09/12/23 09/12/23 Rx lisinopril 10 mg tablet 10 mg PO DAILY #90 tabs 07/09/23 09/12/23 09/12/23 Rx venlafaxine 150 mg 150 mg PO QAM #90 caps 07/15/23 09/12/23 09/12/23 Rx capsule,extended release 24 hr (Effexor XR) venlafaxine 75 mg capsule,extended 75 mg PO QAM #90 caps 07/15/23 09/12/23 09/12/23 Rx release 24 hr (Effexor XR) ziprasidone HCl 80 mg capsule 80 mg PO .5 pm #90 caps 07/15/23 09/12/23 09/11/23 Rx (Geodon) buspirone 10 mg tablet 20 mg (2 x 10 mg) PO .morning #180 08/12/23 09/12/23 09/12/23 Rx tabs quetiapine 200 mg tablet 200 mg PO BEDTIME #90 tabs 08/12/23 09/12/23 09/11/23 Rx bone growth stimulator #1 ea 08/20/23 Unknown Rx meloxicam 15 mg tablet 15 mg PO DAILY 09/12/23 09/12/23 09/11/23 History montelukast 10 mg tablet 10 mg PO BEDTIME 09/12/23 09/12/23 09/11/23 History triamterene 37.5 1 tab PO QAM 09/12/23 09/12/23 09/12/23 History mg-hydrochlorothiazide 25 mg tablet (Maxzide-25mg) Allergies Allergy/AdvReac Type Severity Reaction Status Date / Time carisoprodol [From Soma] Allergy Severe Unconscious Verified 09/12/23 13:06 Penicillins Allergy Unknown swelling Verified 09/12/23 13:06 Current Medications Generic Name Dose Route Start Last Admin Trade Name Freq PRN Reason Stop Dose Admin Fentanyl 50 mcg 09/15/23 06:42 09/15/23 06:54 Fentanyl 50 Mcg/Ml Inj 2ml IVP 50 mcg Q10M PRN Administration Preop Pain Sodium Chloride 1,000 mls @ 30 mls/hr 09/15/23 06:45 09/15/23 06:47 Sodium Chloride 0.9% IV 09/16/23 06:44 30 mls/hr .Q24H MILADYS Administration PFSH Anesthesia Medical History (Updated 09/12/23 @ 13:27 by Reba Humphreys) Enrolled in chronic care management DISH (diffuse idiopathic skeletal hyperostosis) Psychiatric care Idiopathic mild intellectual disability Generalized anxiety disorder Major depressive disorder, recurrent episode with mood-congruent psychotic features Surgical History History of left knee replacement History of ankle surgery Left Social History Smoking and tobacco/nicotine status: never used tobacco/nicotine Alcohol intake: never Current occupation: disability Data Anesthesia 09/15/23 06:25 BMP 09/15/23 06:25 Potassium 4.7 Chloride 100 BUN 21 Calcium 9.8 Liver Function 09/15/23 Range/Units 06:25 Total Bilirubin 0.6 (0.15-1.2) mg/dL AST 22 (0-40) U/L ALT 20 (0-41) U/L Alkaline Phosphatase 82 (40-130) U/L Albumin 4.5 (3.5-5.2) g/dL Cardiac Studies: 2 Echocardiogram 09/26/22 Echocardiogram Ultrasound 02/14/20 Cardiac Event Monitor 09/02/22
[2023-09-15] MEDS: clindamycin 600 MG/50 ML PREMIX 100 MG IV ×2 (07:04→11:02)
[2023-09-15] MEDS: lidocaine-epi 1% 20 mL INJ INJECTION (07:57)
[2023-09-15] MEDS: heparin, porcine 1,000 unit/mL INJ 10 mL 10000 UNIT IRRIGATION (07:58)
[2023-09-15] MEDS: vancomycin 1,000 MG SDV 1000 MG XX (07:58)
[2023-09-15 09:45] LABS: Glucose Point of Care 158 mg/dL (70-110)
[2023-09-15 10:36] LABS: Hematocrit 28.1 % (37-53)
--- NOTE | 2023-09-15 11:45 | P.OP_ITS ---
Operative Report Date of procedure: September 15, 2023 Pre-op diagnosis: Lumbar stenosis with neurogenic claudication Post-op diagnosis: same Procedure done: 1.?L5/S1 interbody fusion with posterolateral fusion 2. Cage at L5/S1 3. L4/5 Interbody fusion with posterolateral fusion 4. Posterior fusion L4-pelvis 5.? Instrumentation L4-S1 6.? Lumbopelvic instrumentation 7. open right Sacral iliac fusion 8. open left sacral iliac fusion 9. L5-S1 laminectomy with facetectomies 10. L4-5 laminectomy with facetectomies 11. use of computer navigation / stereotactic spine 12. use of autograft from same incision 13. allograft 14. Bone marrow aspirate from right iliac crest Surgeon: Manuel Granger DO Estimated blood loss (mL): 1,200 Procedure: 1.?L5/S1 interbody fusion with posterolateral fusion 2. Cage at L5/S1 3. L4/5 Interbody fusion with posterolateral fusion 4. Posterior fusion L4-pelvis 5.? Instrumentation L4-S1 6.? Lumbopelvic instrumentation 7. open right Sacral iliac fusion 8. open left sacral iliac fusion 9. L5-S1 laminectomy with facetectomies 10. L4-5 laminectomy with facetectomies 11. use of computer navigation / stereotactic spine 12. use of autograft from same incision 13. allograft 14. Bone marrow aspirate from right iliac crest Patient is brought to the operative suite.? After undergoing anesthesia, the patient had neuro monitoring attached.? Patient was then placed in the prone position on the [place] table.? All areas of impingement were well-padded.? Patient was then prepped and draped in the normal sterile fashion.? Skin incision was then made over the L1 to the sacrum using previous skin incision.? Subperiosteal dissection was made out to the transverse processes of L4 bilaterally L5 bilaterally and sacral ala bilaterally.? The [employer] bone marrow aspirate kit was used to aspirate bone marrow aspirate.? This was done by using the sharp probe to open up the bone.? Aspiration was performed and then the blunt probe was then used to dissect down to through the bone tunnel.? An aspirating well drawn back a millimeter approximately 20 cc of bone marrow aspirate was used.? Admixed with the allograft and autograft bone that will be used. Next tension was brought to placing the fiducial for the computer navigation.? 2 pins were placed into the right iliac crest.? The fiducial was attached.? The C- arm was brought in and information from the C arm was then linked to the computer used for placing the screws.? Next attention was brought to placing the pedicle screws.? This was done by using the gearshift probe linked to computer navigation.? The probe was used to identify the pedicle.? Then the pedicle feeler was used followed by placement of screw.? This was done at L4 bilaterally, L5 bilaterally and S1 bilaterally. Next attension was brought to placing the iliac screws.? This was done using the sacral ala iliac technique.? The gearshift probe linked to computer navigation was then placed through the sacral ala into the sacroiliac joint into the iliac crest.? Next the pedicle feeler was used followed by the computer navigated tap.? And then the screw was passed a 80 mm screw was placed on the right side and a 90 mm screw was placed on the left side.? Both the screws were 9.5 mm in diameter. Next attension was brought to performing the open and sacral iliac fusion.? This was done by again using the gearshift probe linked to computer navigation.? Followed by pedicle feeler followed by placing a wire and then the drill drilled over the wire and then bone graft was packed into the sacroiliac joint and into the drill hole.? And the sacroiliac screw was then placed.? This technique was done on both the right and left side. Next attention was brought to performing the laminectomy of L5. This was done using the high-speed bur Kerrisons and curettes. Once the lamina was removed and then attention was brought to performing a partial facetectomy on the contralateral side. This was done again using the high-speed bur curettes and Kerrisons. The ligamentum flavum was taken down bilaterally from L5 to S1. Attention was then brought to the facet on the ipsilateral side. The facet was taken down. The s1 nerve was decompressed as it passed around the S1 pedicle. The laminectomy was done for purposes of decompressing the nerve as well as placement of the cage. The L5 nerve was identified as it traversed through the L5/s1 foramen. The thecal sac was identified and retracted. The L5/S1 disc base was identified. Using a knife the disc base was opened. And then sequential emy were placed. The first shaver was a 6 and the last shaver was a 11. Using a pituitary and down going curette the endplates were scraped and disc material was removed from the space. Once adequate decompression of the disc base was felt to be had. Osteoamp sponge was packed into the anterior aspect of the disc base. Then a size 12 cage from [place] was placed after packing osteoamp into the cage. While placing the cage the thecal sac and S1 nerve was protected. C arm was used to ensure that the cages placed in the chance ropriate position. Next attention was brought to performing the laminectomy of L4. This was done using the high-speed bur Kerrisons and curettes. Once the lamina was removed and then attention was brought to performing a partial facetectomy on the contralateral side. This was done again using the high-speed bur curettes and Kerrisons. The ligamentum flavum was taken down bilaterally from L4 to L5. Attention was then brought to the facet on the ipsilateral side. The facet was taken down. The L5 nerve was decompressed as it passed around the L5 pedicle. The laminectomy was done for purposes of decompressing the nerve as well as placement of the cage. The L4 nerve was identified as it traversed through the L4/L5 foramen. The thecal sac was identified and retracted. The L4/5 disc space was identified. Using a knife the disc base was opened. And then sequential emy were placed. The first shaver was a 6 and the last shaver was a 11. Using a pituitary and down going curette the endplates were scraped and disc material was removed from the space. Once adequate decompression of the disc base was felt to be had. Osteoamp sponge was packed into the anterior aspect of the disc base. Then a size 12 cage from [employer] was placed after packing osteoamp into the cage. While placing the cage the thecal sac and L5 nerve was protected. C arm was used to ensure that the cages placed in the appropriate position. Prior to placing the cage there was a small hole made with a drill in the dura. This was repaired using a Nurolon stitch which had watertight closure. Attention was then brought to attaching the rods to the screws placed in theL4 bilaterally, L5 bilaterally and S1 bilaterally.? This was then attached to the sacroiliac screw providing the lumbopelvic fixation.? Caps were torqued into position. Locking the construct in place. Wound was copiously irrigated and then attention was brought to decorticating the facets and transverse processes laterally.? Bone that was taken down from the lamina was used along with osteoamp fibers and sponges were packed into the lateral gutters along the facet joints.? This was done bilaterally. Wound was then closed in a layered fashion starting with the thoracolumbar fascia.? 0-vicryl was used the sub cutaneous tissue was closed with 2-0 vicryl and skin with 4-0 monocryl.? Glue was then used to seal the skin and a steril dressing was applied.? Patient was then placed in the supine position. The endotracheal tube was removed and patient was transferred to the PACU in stable condition.
[2023-09-15 11:46] LABS: Glucose Point of Care 217 mg/dL (70-110)
--- NOTE | 2023-09-15 12:13 | PC.NURSE ---
1156 - scanner not working - 0.5mg Dilaudid given and documented manually - witnessed by Georgina Tse RN
--- NOTE | 2023-09-15 12:25 | ANE.PACU2 ---
Inpatient post-anesthesia follow up: Airway intact: Yes Vital signs: Temperature 97.8 F Pulse Rate 90 Respiratory Rate 18 Blood Pressure 108/75 Pulse Oximetry 99 Oxygen Delivery Me thod Nasal Cannula Oxygen Flow Rate 2 Fraction of Inspir ed Oxygen Hydration adequate: Yes Nausea and vomiting: No Pain level: 1 Mental status: Baseline
[2023-09-15 12:57] LABS: Hematocrit 28.6 % (37-53)
[2023-09-15] MEDS: morphine 4 mg/mL SDV 1 mL 2 MG IVP (15:16)
[2023-09-15] MEDS: gabapentin 300 mg Capsule PO ×2 (15:16→20:16)
--- NOTE | 2023-09-15 15:57 | XR_ITS ---
WS: [id number] C-ARM RADIOGRAPHS LUMBAR SPINE; 4 IMAGES HISTORY: RHEA PICS COMPARISON: None available. Intraoperative imaging during posterior lumbosacral fusion. Hardware appears distended from L4-S2. In terbody spacers at L4-5 and L5-S1. XR/XR lumbar spine 2-3V* [id number] IMPRESSION: Intraoperative imaging during the lumbosacral fusion.
[2023-09-15] MEDS: lactated ringers 1,000 ML 90 ML IV (16:54)
[2023-09-15] MEDS: acetaminophen 500 mg Tablet 2000 MG PO (16:59)
[2023-09-15] MEDS: metformin 500 mg Tablet 1000 MG PO (16:59)
[2023-09-15] MEDS: ziprasidone hcl 40 mg Capsule 80 MG PO (17:00)
[2023-09-15] MEDS: docusate sodium 100 mg Capsule PO (17:00)
[2023-09-15] MEDS: clindamycin 900 MG/50 ML PREMIX 100 MG IV (18:22)
--- NOTE | 2023-09-15 18:36 | PC.NURSE ---
called to clarify orders. per dr. mcdowell leave hemovac to gravity. dr. mcdowell also notified that there was a tick found and removed off of patient during admission, and notified patients of suicide risk assessment.
[2023-09-15] MEDS: montelukast sodium 10 mg Tablet PO (20:16)
[2023-09-15] MEDS: calcium carb-vit d 500mg-200unit 1 Tablet 1 EACH PO (20:16)
[2023-09-15] MEDS: quetiapine 100 mg Tablet 200 MG PO (20:16)
[2023-09-15 20:34] LABS: Glucose Point of Care 149 mg/dL (70-110)
[2023-09-16] VITALS (17 sets, daily range): BP systolic 71–115; BP diastolic 32–68; PULSE 81–109; RESP 16–20; TEMP 36.4–38.2; O2SAT 94–99
--- NOTE | 2023-09-16 01:50 | PC.NURSE ---
Pt blood pressure was found to be 55/38 manually during post-op vital check. Pt was placed in the trendelenburg position and telemetry was placed on him. and were contacted and gave orders to infuse 1 unit of blood. ordered labs to be drawn. 1 unit of blood was transfused and the blood pressure increased to 108/68.
[2023-09-16] MEDS: lactated ringers 1,000 ML 90 ML IV ×3 (02:38→20:19)
[2023-09-16] MEDS: clindamycin 900 MG/50 ML PREMIX 100 MG IV ×2 (03:09→11:20)
[2023-09-16 03:41] LABS: Basophils % 0.2 %; Eosinophils % 0.1 %; Lymphocytes # 1.2 10^3/uL (0.8-4.8); Lymphocytes % 14.8 %; Mean Corpuscular HGB Conc 33.1 g/dL (30-55); Mean Corpuscular Hemoglobin 29.9 pg (27-33); Mean Corpuscular Volume 90.3 fl (82-101); Mean Platelet Volume 10.1 fL (7.4-10.4); Monocytes % 11.9 %; Neutrophils # 5.96 10^3/uL (1.8-7.7); Neutrophils % 72.5 %; Nucleated Red Blood Cells % 0 %; Platelet Count 197 10^3/cmm (157-399); Red Blood Count 2.88 10^6/uL (3.85-5.65); White Blood Count 8.23 10^3/uL (3.29-11.43)
[2023-09-16 04:08] LABS: Alanine Aminotransferase 21 U/L (0-41); Albumin Level 3.5 g/dL (3.5-5.2); Alkaline Phosphatase 56 U/L (40-130); Anion Gap 16.2 (5-19); Aspartate Amino Transferase 55 U/L (0-40); Blood Urea Nitrogen 23 mg/dL (8-23); Calcium 7.9 mg/dL (8.5-10.5); Carbon Dioxide 20 mmol/L (22-29); Chloride 104 mmol/L (98-107); Creatinine Clr Calc Pharmacy 47.2542; Globulin 2.4 g/dL (1.3-4.6); Glomerular Filtration Rate 35.9 mL/min (90-130); Glucose 114 mg/dL (65-115); Osmolality Calculated 285 mOsm/kg (285-295); Potassium 5.2 mmol/L (3.5-5.1); Sodium 135 mmol/L (136-145); Total Bilirubin 0.7 mg/dL (0.15-1.2); Total Protein 5.9 g/dL (6.6-8.7)
[2023-09-16] MEDS: venlafaxine ER (24HR) 75 mg Capsule PO (05:22)
[2023-09-16] MEDS: venlafaxine ER (24HR) 150 mg Capsule PO (05:22)
[2023-09-16 05:37] LABS: Hematocrit 26.6 % (37-53)
[2023-09-16] MEDS: cholecalciferol (vitamin D3) 1,000 unit Tablet 500 UNIT PO (07:52)
[2023-09-16] MEDS: magnesium oxide 400 mg tablet PO (07:52)
[2023-09-16] MEDS: ascorbic acid 500 mg Tablet PO (07:52)
[2023-09-16] MEDS: acetaminophen 500 mg Tablet 2000 MG PO ×2 (07:52→17:40)
--- NOTE | 2023-09-16 07:52 | PM.PN ---
Subjective Subjective: Patient is finding it difficult to get comfortable in bed. At this point drain has minimal output. Will keep it until he gets up with physical therapy. Patient would like to go to a prison. Vitals/I&O/Wt Last Vital Signs Temp 98.4 F 09/16/23 07:44 Pulse 86 09/16/23 07:44 Resp 17 09/16/23 07:44 BP 93/57 09/16/23 07:44 Pulse Ox 99 09/16/23 07:44 O2 Del Method Nasal Cannula 09/16/23 05:25 O2 Flow Rate 2 09/15/23 20:00 09/15/23 09/16/23 09/16/23 22:59 06:59 14:59 Intake Total 2490 / 5040 1636 / 6676 Output Total 800 / 2650 750 / 3400 Balance 1690 / 2390 886 / 3276 Weight last 48 hrs Weight 251 lb 1 oz Weight 235 lb Weight 235 lb Physical Exam Narrative: Good strength in bilateral lower extremities complaining of pain in his back. Urinary Catheter Management: [place]: Cath Placed During This Visit: yes Reason for Continuing Indwelling Catheter: Required Immobilization for Trauma or Surgery or Anesthesia Urinary Catheter Date of Insertion: 09/15/23 Urinary Catheter Time of Insertion: 07:16 Data 09/16/23 05:30 09/16/23 03:17 A&P Assessment and plan (1) Status post lumbar spinal fusion: Patient is postop day 1 spinal fusion. Discharged to prison. Up with physical therapy Attestations Medical Necessity Statement*: Pain control prison placement Coding Level of Care Code Acute Code for Chg Fwd Diagnoses Status post lumbar spinal fusion Z98.1
[2023-09-16] MEDS: omega-3 fatty acids 1,000 mg Capsule 1000 MG PO (07:53)
[2023-09-16] MEDS: metformin 500 mg Tablet 1000 MG PO ×2 (07:53→17:41)
[2023-09-16] MEDS: ketorolac 30 mg/mL INJ IVP (07:53)
[2023-09-16] MEDS: pantoprazole DR 40 mg Tablet PO (07:53)
[2023-09-16] MEDS: docusate sodium 100 mg Capsule PO ×2 (07:53→17:41)
[2023-09-16] MEDS: gabapentin 300 mg Capsule PO ×3 (07:53→20:19)
[2023-09-16] MEDS: levothyroxine 75 mcg Tablet PO (07:53)
--- NOTE | 2023-09-16 09:12 | PC.CHAP ---
Pastoral Care Encounter/Spiritual Assessment Type of Contact [] Declined fence erector visit [] Patient/Family/Request visit [] Outpatient visit [] Follow-up visit [] Physician referral [] Code/Alert [] Routine visit [] Staff referral [] Actively dying [] Patient sleeping [] Family support [] [] Out of room [] Palliative care [] [x] Receiving care in room [] Pre-surgical visit [] Trauma [] Long length of stay [] ICU visit [] Other: Relational/Emotional Strength [] Patient feels connected with others/family/visitors/staff [] Distress [] Loneliness/isolation [] Abandonment Spirituality of Patient [] Person of Virgie [] Attends Buddhism of their Virgie [] Believes in Prayer [] Reads Bible or Evangelical materials [] There are Spiritual issues to be addressed Justowriter Operator Interventions [] Prayer [] Active listening [] Non-anxious presence [] Spiritual/emotional support [] Crisis/trauma care [] Spiritual counseling [] Bereavement support [] Provided bereavement packet [] Provided Bible/devotional materials [] Provided toy/stuffed animal, coloring book to patient or family member [] Provided Communion [] Anointing/[place] [] Salvation [] Completed spiritual assessment [] Other: Impact on Illness or Injury [] Angry [] Fearful [] Anxious [] Often cries [] Exhaustion [] Unable to work [] Unable to attend shinto [] Unable to walk/stand [] Unable to read [] Unable to drive [] Unable to eat/drink [] Unable to sleep [] Unable to be with family [] Patient intubated [] Other: Summary Time spent with patient
[2023-09-16] MEDS: TRAMadol 50 mg Tablet 100 MG PO ×3 (09:18→20:19)
[2023-09-16] MEDS: cyclobenzaprine 10 mg Tablet PO ×2 (09:18→15:26)
--- NOTE | 2023-09-16 11:05 | PC.NURSE ---
Hemovac drain removed due to patient pulling most of the way out. applied 2-2x2's and covederm dressing. [place]axi[place] catheter removed as well without incident.
[2023-09-16 12:05] LABS: Hematocrit 26.3 % (37-53)
[2023-09-16] MEDS: sodium chloride 0.9% 500 ML 999 ML IV (12:50)
[2023-09-16] MEDS: ziprasidone hcl 40 mg Capsule 80 MG PO (17:41)
--- NOTE | 2023-09-16 19:17 | XRR_ITS ---
PROCEDURE INFORMATION: Exam: XR Chest Exam date and time: 09/16/2023 7:52 PM Age: 63 years old Clinical indication: Shortness of breath; Additional info: SOB TECHNIQUE: Imaging protocol: Radiologic exam of the chest. Views: 1 view. COMPARISON: CR XR chest 2V* [id number] 10/15/2021 12:14 PM FINDINGS: Lungs: Irregular opacities in the right lung base. Pleural spaces: Unremarkable. No pleural effusion. No pneumothorax. Heart/Mediastinum: Unremarkable. No cardiomegaly. Bones/joints: Unremarkable. XR/XR chest 1V portable [id number] IMPRESSION: Irregular opacities in the right lung base.
--- NOTE | 2023-09-16 19:43 | P.CONIM_ITS ---
Providers/Reason For Consult 2 Consulting Physician/Specialty*: Orthopedic service Reason for Consult*: Postoperative anemia, postoperative hypertension, postoperative fevers Attending Physician: Manuel Granger DO Primary Care Provider: Esvin Villeda DO History of Present Illness History of Present Illness Sandip Hirsch is a 63 year old male with a past medical history of hypertension, major depressive disorder, who presents to [facility] for status post lumbar spinal fusion, postop day 1, hospice team was consulted due to low blood pressures, currently patient is alert oriented x 4, following all commands, complaining of feeling hot, and complaining of low back pain, denies any headache, blurry vision, no nausea, no vomiting no abdominal pain, no flank pain, does report feeling lightheaded, blood pressure 96/57, temp 100.7,, currently on room air, she denies any shortness of breath, no cough, Review of Systems 2 Const: Reports: fever(s) Card: Denies: chest pain Neuro: Denies: headache(s) Medications/Allergies Home Medications Medication Instructions Recorded Confirmed Last Taken Type omega-3 fatty acids 1,000 mg 1,000 mg PO DAILY 07/06/19 09/12/23 09/05/23 History capsule (Fish Oil Concentrate) vitamin B complex (B 1 tab PO DAILY 07/06/19 09/12/23 09/05/23 History Complex-Vitamin B12 tablet) calcium carbonate 500 mg-vitamin 1 tab PO BEDTIME 11/16/19 09/12/23 09/05/23 History D3 5 mcg (200 unit) tablet (Calcium 500 + D) garlic 1,000 mg capsule 1,000 mg PO DAILY 11/16/19 09/12/23 09/05/23 History potassium gluconate 595 mg (99 mg) 595 mg PO DAILY 11/16/19 09/12/23 09/05/23 History tablet ascorbate calcium (vitamin C) 500 500 mg PO DAILY 11/06/20 09/12/23 09/05/23 History mg tablet kbkiuz-smfjel-gyjowiixh-chrom 1 tab PO DAILY 02/05/21 09/15/23 09/14/23 History poly-grn tea 2 gram-100 mcg chewable tab lancing device (TRUEdraw Lancing #1 ea 03/22/21 09/15/23 Unknown Rx Device) magnesium 250 mg tablet 400 mg PO DAILY 04/13/21 09/12/23 09/05/23 History acetaminophen 500 mg tablet 2,000 mg PO BID pain 06/25/21 09/12/23 09/05/23 History (Tylenol Extra Strength) biotin 2,500 mcg capsule 5,000 mcg PO DAILY 06/25/21 09/12/23 09/05/23 History lancets 28 gauge (TRUEplus Lancets) #200 ea 06/28/21 09/15/23 Unknown Rx diabetic supplies, miscellan. #1 ea 12/10/21 09/15/23 Unknown Rx blood-glucose meter (True Metrix #1 ea 12/19/21 09/15/23 Unknown Rx Glucose Meter kit) blood pressure monitor #1 ea 01/17/22 09/15/23 Unknown Rx aspirin 81 mg tablet,delayed 81 mg PO DAILY 03/14/22 09/12/23 09/05/23 History release cholecalciferol (vitamin D3) 10 10 mcg PO DAILY 03/14/22 09/12/23 09/05/23 History mcg (400 unit) capsule (Vitamin D3) metformin 1,000 mg tablet 1,000 mg PO BID #180 tabs 06/27/22 09/12/23 09/11/23 Rx blood sugar diagnostic (True #200 ea 08/12/22 09/15/23 Unknown Rx Metrix Glucose Test Strip) diabetic supplies, miscellan. #200 ea 09/05/22 09/15/23 Unknown Rx pantoprazole 40 mg tablet,delayed 40 mg PO DAILY #90 tabs 10/30/22 09/12/23 09/11/23 Rx release spectrum AFO #1 ea 11/27/22 09/15/23 Unknown Rx cyclobenzaprine 10 mg tablet 10 mg PO TID PRN muscle spasm #60 02/10/23 09/12/23 09/12/23 Rx tabs gabapentin 300 mg capsule 300 mg PO TID 90 days #270 caps 04/30/23 09/12/23 09/12/23 Rx levothyroxine 75 mcg tablet 75 mcg PO DAILY #90 tabs 04/30/23 09/12/23 09/12/23 Rx lisinopril 10 mg tablet 10 mg PO DAILY #90 tabs 07/09/23 09/12/23 09/12/23 Rx venlafaxine 150 mg 150 mg PO QAM #90 caps 07/15/23 09/12/23 09/12/23 Rx capsule,extended release 24 hr (Effexor XR) venlafaxine 75 mg capsule,extended 75 mg PO QAM #90 caps 07/15/23 09/12/23 09/12/23 Rx release 24 hr (Effexor XR) ziprasidone HCl 80 mg capsule 80 mg PO .5 pm #90 caps 07/15/23 09/12/23 09/11/23 Rx (Geodon) buspirone 10 mg tablet 20 mg (2 x 10 mg) PO .morning #180 08/12/23 09/12/23 09/12/23 Rx tabs quetiapine 200 mg tablet 200 mg PO BEDTIME #90 tabs 08/12/23 09/12/23 09/11/23 Rx bone growth stimulator #1 ea 08/20/23 09/15/23 Unknown Rx meloxicam 15 mg tablet 15 mg PO DAILY 09/12/23 09/12/23 09/11/23 History montelukast 10 mg tablet 10 mg PO BEDTIME 09/12/23 09/12/23 09/11/23 History triamterene 37.5 1 tab PO QAM 09/12/23 09/12/23 09/12/23 History mg-hydrochlorothiazide 25 mg tablet (Maxzide-25mg) Allergies Allergy/AdvReac Type Severity Reaction Status Date / Time carisoprodol [From Soma] Allergy Severe Unconscious Verified 09/12/23 13:06 Penicillins Allergy Unknown swelling Verified 09/12/23 13:06 Current Medications Generic Name Dose Route Start Last Admin Trade Name Freq PRN Reason Stop Dose Admin Ascorbic Acid 500 mg 09/16/23 09:00 09/16/23 07:52 Ascorbic Acid 500 Mg Tablet PO 500 mg DAILY MILADYS Administration Calcium Carbonate 1 each 09/15/23 21:00 09/15/23 20:16 Calcium Carb-Vit D 500mg-200unit 1 Tablet PO 1 each BEDTIME MILADYS Administration Cyclobenzaprine HCl 10 mg 09/15/23 11:37 09/16/23 15:26 Cyclobenzaprine 10 Mg Tablet PO 10 mg TID PRN Administration muscle spasm Docusate Sodium 100 mg 09/15/23 18:00 09/16/23 17:41 Docusate Sodium 100 Mg Capsule PO 100 mg BID MILADYS Administration Gabapentin 300 mg 09/15/23 15:00 09/16/23 15:23 Gabapentin 300 Mg Capsule PO 300 mg TID MILADYS Administration Lactated Ringer's 1,000 mls @ 90 mls/hr 09/15/23 11:45 09/16/23 15:23 Lactated Ringers IV 90 mls/hr .[id number] MILADYS Administration Levothyroxine Sodium 75 mcg 09/16/23 09:00 09/16/23 07:53 Levothyroxine 75 Mcg Tablet PO 75 mcg DAILY MILADYS Administration Magnesium Oxide 400 mg 09/16/23 09:00 09/16/23 07:52 Magnesium Oxide 400 Mg Tablet PO 400 mg DAILY MILADYS Administration Montelukast Sodium 10 mg 09/15/23 21:00 09/15/23 20:16 Montelukast Sodium 10 Mg Tablet PO 10 mg BEDTIME MILADYS Administration Morphine Sulfate 2 mg 09/15/23 11:35 09/15/23 15:16 Morphine 4 Mg/Ml Sdv 1 Ml IVP 2 mg Q1H PRN Administration SEVERE PAIN Non-Formulary Medication 1 tab 09/16/23 09:00 09/16/23 07:47 Xdhk-Mvzxxk-Fqpn.-Chrom-Gr Tea PO Not Given DAILY MILADYS Non-Formulary Medication 5,000 mcg 09/16/23 09:00 09/16/23 07:47 Biotin PO Not Given DAILY MILADYS Non-Formulary Medication 1 tab 09/16/23 06:00 09/16/23 05:14 Triamterene-Hydrochlorothiazid [Maxzide-25mg] PO Not Given QAM [facility] Bevzf-2-Cyto Ethyl Esters 1,000 mg 09/16/23 09:00 09/16/23 07:53 Lyons-3 Fatty Acids 1,000 Mg Capsule PO 1,000 mg DAILY MILADYS Administration Pantoprazole Sodium 40 mg 09/16/23 09:00 09/16/23 07:[address] 40 Mg Tablet PO 40 mg DAILY MILADYS Administration Quetiapine Fumarate 200 mg 09/15/23 21:00 09/15/23 20:16 Quetiapine 100 Mg Tablet PO 200 mg BEDTIME MILADYS Administration Tramadol HCl 100 mg 09/15/23 11:35 09/16/23 15:26 Tramadol 50 Mg Tablet PO 100 mg Q4H PRN Administration MODERATE PAIN Venlafaxine HCl 75 mg 09/16/23 06:00 09/16/23 05:22 Venlafaxine Er (24hr) 75 Mg Capsule PO 75 mg QAM MILADYS Administration Venlafaxine HCl 150 mg 09/16/23 06:00 09/16/23 05:22 Venlafaxine Er (24hr) 150 Mg Capsule PO 150 mg QAM MILADYS Administration Vitamin D 500 unit 09/16/23 09:00 09/16/23 07:52 Cholecalciferol (Vitamin D3) 1,000 Unit Tablet PO 500 unit DAILY MILADYS Administration Ziprasidone 80 mg 09/15/23 17:00 09/16/23 17:41 Ziprasidone Hcl 40 Mg Capsule PO 80 mg DAILY@1700 MILADYS Administration PFSH Acute 2 PFSH: Medical History (Updated 09/16/23 @ 19:48 by Smooth Balderas MD) Enrolled in chronic care management DISH (diffuse idiopathic skeletal hyperostosis) Psychiatric care Idiopathic mild intellectual disability Generalized anxiety disorder Major depressive disorder, recurrent episode with mood-congruent psychotic features Surgical History (Updated 09/16/23 @ 07:53 by Manuel Granger DO) History of left knee replacement History of ankle surgery Left Social History Smoking and tobacco/nicotine status: never used tobacco/nicotine Alcohol intake: never Current occupation: disability Vitals/I&O/Wt Last Vital Signs Temp 100.7 F H 09/16/23 18:05 Pulse 105 H 09/16/23 18:05 Resp 18 09/16/23 18:05 BP 96/57 09/16/23 18:05 Pulse Ox 94 09/16/23 18:05 O2 Del Method Room Air 09/16/23 17:46 O2 Flow Rate 2 09/15/23 20:00 09/16/23 09/16/23 09/16/23 06:59 14:59 22:59 Intake Total 1636 / 6676 2150 / 2150 240 / 2390 Output Total 750 / 3400 200 / 200 600 / 800 Balance 886 / 3276 1950 / 1950 -360 / 1590 Weight last 48 hrs Weight 113.88 kg Weight 106.594 kg Weight 106.594 kg Physical Exam 2 Const: COMMON NORMALS: no acute distress and patient oriented x3 HENMT: COMMON NORMALS: normocephalic HEAD & SCALP: normocephalic Eye: COMMON NORMALS: Equal, round and reactive pupils present and EOMs intact bilaterally PUPIL: Yes Equal, round and reactive pupils present Neck/C-Spine: COMMON NORMALS: full ROM and no lymphadenopathy Lymph: LYMPHATIC: no lymphadenopathy noted Resp: COMMON NORMALS: normal respiratory effort, No retractions, No use of accessory muscles and clear to auscultation bilaterally AUSCULTATION: clear to auscultation bilaterally Cardio: COMMON NORMALS: regular rate, regular rhythm, S1 normal heart sound present and S2 normal heart sound present RATE: regular rate RHYTHM: r egular rhythm HEART SOUNDS: S1 normal heart sound present and S2 normal heart sound present GI: COMMON NORMALS: Normal to inspection, nondistended, normoactive bowel sounds present and non-tender : COMMON NORMALS: Yes no CVA tenderness BLADDER/KIDNEY EXAM: Yes no CVA tenderness Back/Pelvis: COMMON NORMALS: no CVA tenderness OTHER: Surgical site looks clean and dry Extremity: COMMON NORMALS: no calf tenderness and no pedal edema Neuro: COMMON NORMALS: patient oriented x3, CN's II-XII intact bilaterally, moves all extremities and no focal motor deficits Psych: COMMON NORMALS: mental status grossly normal Urinary Catheter Management: Gaxiola: Cath Placed During This Visit: yes, but has since been removed by the nurse Reason for Continuing Indwelling Catheter: Decision to DC Catheter Urinary Catheter Date of Insertion: 09/16/23 Urinary Catheter Time of Insertion: 16:00 Date Urinary Catheter Removed: 09/16/23 Time Urinary Catheter Discontinued: 10:00 Data 09/16/23 11:52 09/16/23 03:17 A&P Assessment and plan (1) Fever: (2) Status post lumbar spinal fusion: (3) Postoperative anemia: Plan Status post lumbar spinal fusion ? Postop day 1 ? Estimated blood loss 1300 cc ? Status post 1 unit PRBC, currently receiving another unit of blood Postoperative anemia ? Estimated blood loss 1300 cc, status post 1 unit PRBC currently receiving his second unit of blood ? Ferritin, iron Postoperative fevers, hypotension ? CBC, CMP, UA, chest x-ray, lactic acid, blood cultures, TSH, cortisol ? Monitor hemodynamics closely ? Will consider midodrine ? Hold blood pressure medications ? Hold Toradol ? Continue IV fluids Full code Gaxiola catheter placed ? SCDs for DVT prophylaxis Consult Attestations 2 Medical Necessity Statement: Patient requires hospitalization, for postoperative anemia, postop hypertension and fevers Diagnoses Fever R50.9 Status post lumbar spinal fusion Z98.1 Postoperative anemia D64.9
[2023-09-16 20:11] LABS: Glucose Point of Care 161 mg/dL (70-110)
[2023-09-16] MEDS: calcium carb-vit d 500mg-200unit 1 Tablet 1 EACH PO (20:19)
[2023-09-16] MEDS: quetiapine 100 mg Tablet 200 MG PO (20:19)
[2023-09-16] MEDS: montelukast sodium 10 mg Tablet PO (20:19)
--- NOTE | 2023-09-16 20:47 | PC.NURSE ---
Addendum entered by Shandra Nascimento RN 09/16/23 20:49: I asked Dr. Balderas if there are any certain parameters to notify him for the patient's blood pressure. Ordered to check patient's blood pressure every hour, keep patient bed rest, and notify provider if patient becomes symptomatic. Original Note: Patient has a blood pressure is 85/47 at end of blood transfusion. He does lay on his side when blood pressures are taken, however due to pain in his back. Dr. Balderas notified. Ordered to continue to monitor.
[2023-09-16 21:30] LABS: Basophils % 0.5 %; Eosinophils # 0.1 10^3/uL (0.0-0.8); Eosinophils % 1.4 %; Hematocrit 26.1 % (37-53); Lymphocytes # 1.2 10^3/uL (0.8-4.8); Lymphocytes % 15.5 %; Mean Corpuscular Hemoglobin 29.8 pg (27-33); Mean Corpuscular Volume 90.3 fl (82-101); Mean Platelet Volume 10.4 fL (7.4-10.4); Monocytes # 0.9 10^3/uL (0.2-0.9); Monocytes % 11.8 %; Neutrophils # 5.62 10^3/uL (1.8-7.7); Neutrophils % 70.3 %; Nucleated Red Blood Cells % 0 %; Platelet Count 165 10^3/cmm (157-399); Red Blood Count 2.89 10^6/uL (3.85-5.65); Red Cell Distribution Width 13.5 % (12.1-15.1); White Blood Count 7.99 10^3/uL (3.29-11.43)
[2023-09-16 21:44] LABS: Add Urine Microscopic? NO; Charge for UA Resulting for Rev
[2023-09-16 21:55] LABS: Lactic Sepsis W/Reflex 1.5 mmol/L (0.5-2.2)
[2023-09-16 21:59] LABS: Bilirubin Urine Neg (Negative); Blood Urine Neg (Negative); Glucose Urine UA Norm (Normal); Ketones Urine Negative (Negative); Leukocyte Esterase Urine Negative (Negative); Nitrate Urine Negative (Negative); Protein Urine Neg (Negative); Specific Gravity, Urine 1.015 (1.005-1.030); Urine Appearance Clear (CLEAR); Urine Color Yellow (Yellow); Urobilinogen Urine Neg (Negative); pH Urine 5 (5-7)
[2023-09-16 22:06] LABS: Cortisol Random 3.73 ug/dL (2.47-19.5)
[2023-09-16 22:08] LABS: Alanine Aminotransferase 19 U/L (0-41); Albumin Level 3.1 g/dL (3.5-5.2); Alkaline Phosphatase 50 U/L (40-130); Aspartate Amino Transferase 43 U/L (0-40); Blood Urea Nitrogen 23 mg/dL (8-23); Calcium 7.9 mg/dL (8.5-10.5); Carbon Dioxide 22 mmol/L (22-29); Chloride 103 mmol/L (98-107); Creatinine Clr Calc Pharmacy 61.9062; Free T4 Free Thyroxine 1.28 ng/dL (0.82-1.77); Globulin 2.1 g/dL (1.3-4.6); Glomerular Filtration Rate 47.1 mL/min (90-130); Glucose 123 mg/dL (65-115); Osmolality Calculated 283 mOsm/kg (285-295); Sodium 134 mmol/L (136-145); Total Bilirubin 0.7 mg/dL (0.15-1.2); Total Protein 5.2 g/dL (6.6-8.7)
[2023-09-17] VITALS (16 sets, daily range): BP systolic 87–142; BP diastolic 52–88; PULSE 77–109; RESP 16–20; TEMP 36.8–37.6; O2SAT 93–100
[2023-09-17 00:57] LABS: Ferritin 46 ng/mL (30-400); Iron 30 ug/dL (59-158)
[2023-09-17] MEDS: cyclobenzaprine 10 mg Tablet PO ×3 (01:18→14:15)
[2023-09-17] MEDS: TRAMadol 50 mg Tablet 100 MG PO ×5 (01:18→17:58)
[2023-09-17] MEDS: morphine 4 mg/mL SDV 1 mL 2 MG IVP ×4 (03:39→15:31)
[2023-09-17 05:38] LABS: Basophils % 0.3 %; Eosinophils # 0.1 10^3/uL (0.0-0.8); Eosinophils % 1.3 %; Lymphocytes # 1.1 10^3/uL (0.8-4.8); Lymphocytes % 12.2 %; Mean Corpuscular Hemoglobin 29.8 pg (27-33); Mean Corpuscular Volume 90.3 fl (82-101); Mean Platelet Volume 10.3 fL (7.4-10.4); Monocytes # 1.1 10^3/uL (0.2-0.9); Monocytes % 11.3 %; Neutrophils # 6.93 10^3/uL (1.8-7.7); Neutrophils % 74.3 %; Nucleated Red Blood Cells % 0 %; Platelet Count 153 10^3/cmm (157-399); Red Blood Count 2.99 10^6/uL (3.85-5.65); White Blood Count 9.33 10^3/uL (3.29-11.43)
[2023-09-17] MEDS: venlafaxine ER (24HR) 150 mg Capsule PO (05:51)
[2023-09-17] MEDS: venlafaxine ER (24HR) 75 mg Capsule PO (05:51)
[2023-09-17 06:01] LABS: Anion Gap 11.8 (5-19); Blood Urea Nitrogen 17 mg/dL (8-23); Calcium 8.3 mg/dL (8.5-10.5); Carbon Dioxide 26 mmol/L (22-29); Chloride 102 mmol/L (98-107); Glucose 97 mg/dL (65-115); Osmolality Calculated 281 mOsm/kg (285-295); Potassium 4.8 mmol/L (3.5-5.1); Sodium 135 mmol/L (136-145)
[2023-09-17 06:05] LABS: Creatinine Clr Calc Pharmacy 67.5592
[2023-09-17 06:30] LABS: Glucose Point of Care 142 mg/dL (70-110)
[2023-09-17] MEDS: insulin lispro 100 unit/1 mL SUBCUT ×2 (08:48→11:52)
[2023-09-17] MEDS: acetaminophen 325 mg Tablet 650 MG PO (08:48)
[2023-09-17] MEDS: BuSPIRONE 10 mg Tablet 20 MG PO (08:49)
[2023-09-17] MEDS: docusate sodium 100 mg Capsule PO ×2 (08:49→17:58)
[2023-09-17] MEDS: ascorbic acid 500 mg Tablet PO (08:49)
[2023-09-17] MEDS: gabapentin 300 mg Capsule PO ×3 (08:49→20:45)
[2023-09-17] MEDS: cholecalciferol (vitamin D3) 1,000 unit Tablet 500 UNIT PO (08:49)
[2023-09-17] MEDS: levothyroxine 75 mcg Tablet PO (08:49)
[2023-09-17] MEDS: omega-3 fatty acids 1,000 mg Capsule 1000 MG PO (08:49)
[2023-09-17] MEDS: pantoprazole DR 40 mg Tablet PO (08:49)
[2023-09-17] MEDS: magnesium oxide 400 mg tablet PO (08:49)
--- NOTE | 2023-09-17 08:57 | PC.CHAP ---
Pastoral Care Encounter/Spiritual Assessment Type of Contact [] Declined pigment grinder visit [] Patient/Family/Request visit [] Outpatient visit [] Follow-up visit [] Physician referral [] Code/Alert [] Routine visit [] Staff referral [] Actively dying [x] Patient sleeping [] Family support [] [] Out of room [] Palliative care [] [] Receiving care in room [] Pre-surgical visit [] Trauma [] Long length of stay [] ICU visit [] Other: Relational/Emotional Strength [] Patient feels connected with others/family/visitors/staff [] Distress [] Loneliness/isolation [] Abandonment Spirituality of Patient [] Person of Virgie [] Attends Denominational of their Virgie [] Believes in Prayer [] Reads Bible or Hindu materials [] There are Spiritual issues to be addressed Bee Robber Interventions [] Prayer [] Active listening [] Non-anxious presence [] Spiritual/emotional support [] Crisis/trauma care [] Spiritual counseling [] Bereavement support [] Provided bereavement packet [] Provided Bible/devotional materials [] Provided toy/stuffed animal, coloring book to patient or family member [] Provided Communion [] Anointing/[place] [] Salvation [] Completed spiritual assessment [] Other: Impact on Illness or Injury [] Angry [] Fearful [] Anxious [] Often cries [] Exhaustion [] Unable to work [] Unable to attend orthodoxy [] Unable to walk/stand [] Unable to read [] Unable to drive [] Unable to eat/drink [] Unable to sleep [] Unable to be with family [] Patient intubated [] Other: Summary Time spent with patient
[2023-09-17 11:34] LABS: Glucose Point of Care 159 mg/dL (70-110)
--- NOTE | 2023-09-17 11:36 | P.PN_ITS ---
Subjective 2 Subjective: Seen this morning. Laying in bed. About to work with physical therapy. Blood pressure has been stable overnight. Vitals/I&O/Wt Last Vital Signs Temp 98.3 F 09/17/23 08:09 Pulse 93 09/17/23 08:09 Resp 16 09/17/23 08:48 BP 114/67 09/17/23 08:09 Pulse Ox 100 09/17/23 08:09 O2 Del Method Nasal Cannula 09/17/23 08:09 O2 Flow Rate 2 09/17/23 03:02 09/16/23 09/17/23 09/17/23 22:59 06:59 14:59 Intake Total 1204 / 3354 480 / 3834 480 / 480 Output Total 2000 / 2200 1500 / 3700 1000 / 1000 Balance -796 / 1154 -1020 / 134 -520 / -520 Weight last 48 hrs Weight 117.962 kg Weight 113.88 kg Weight 106.594 kg Physical Exam 2 Const: COMMON NORMALS: no acute distress and patient oriented x3 HENMT: COMMON NORMALS: normocephalic HEAD & SCALP: normocephalic Eye: COMMON NORMALS: Equal, round and reactive pupils present and EOMs intact bilaterally PUPIL: Yes Equal, round and reactive pupils present Neck/C-Spine: COMMON NORMALS: full ROM and no lymphadenopathy Lymph: LYMPHATIC: no lymphadenopathy noted Resp: COMMON NORMALS: normal respiratory effort, No retractions, No use of accessory muscles and clear to auscultation bilaterally AUSCULTATION: clear to auscultation bilaterally Cardio: COMMON NORMALS: regular rate, regular rhythm, S1 normal heart sound present and S2 normal heart sound present RATE: regular rate RHYTHM: r egular rhythm HEART SOUNDS: S1 normal heart sound present and S2 normal heart sound present GI: COMMON NORMALS: Normal to inspection, nondistended, normoactive bowel sounds present and non-tender : COMMON NORMALS: Yes no CVA tenderness BLADDER/KIDNEY EXAM: Yes no CVA tenderness Back/Pelvis: COMMON NORMALS: no CVA tenderness OTHER: Surgical site looks clean and dry Extremity: COMMON NORMALS: no calf tenderness and no pedal edema Neuro: COMMON NORMALS: patient oriented x3, CN's II-XII intact bilaterally, moves all extremities and no focal motor deficits Psych: COMMON NORMALS: mental status grossly normal Urinary Catheter Management: Gaxiola: Cath Placed During This Visit: yes, but has since been removed by the nurse Reason for Continuing Indwelling Catheter: Acute Urinary Retention or Obstruction Urinary Catheter Date of Insertion: 09/16/23 Urinary Catheter Time of Insertion: 16:00 Date Urinary Catheter Removed: 09/16/23 Time Urinary Catheter Discontinued: 10:00 Data 09/17/23 05:27 09/17/23 05:27 Micro: Microbiology 09/16/23 21:00 Blood Culture - Preliminary Blood SPECIMEN COLLECTED 09/16/23 21:11 Blood Culture - Preliminary Blood SPECIMEN COLLECTED A&P Assessment and plan (1) Fever: (2) Status post lumbar spinal fusion: (3) Postoperative anemia: Plan Status post lumbar spinal fusion ? Postop day 1 ? Estimated blood loss 1300 cc ? Status post 1 unit PRBC, currently receiving another unit of blood Postoperative anemia ? Estimated blood loss 1300 cc, status post 1 unit PRBC currently receiving his second unit of blood ? Ferritin, iron Postoperative fevers, hypotension ? CBC, CMP, UA, chest x-ray, lactic acid, blood cultures, TSH, cortisol ? Monitor hemodynamics closely ? Will consider midodrine ? Hold blood pressure medications ? Hold Toradol ? Continue IV fluids Full code Gaxiola catheter placed ? SCDs for DVT prophylaxis Check orthostatic vitals. Continue to monitor blood pressure. Attestations 2 Medical Necessity Statement*: Patient has been hypotensive status post lumbar spinal fusion. He will need to be monitored in the hospital today to ensure blood pressure remained stable prior to discharge. Diagnoses Fever R50.9 Status post lumbar spinal fusion Z98.1 Postoperative anemia D64.9
[2023-09-17] MEDS: lactated ringers 1,000 ML 90 ML IV ×2 (11:51→21:35)
--- NOTE | 2023-09-17 12:48 | PC.SOCIAL ---
Pg 2 IMM Explained to pt Pg 2 IMM. No questions voiced. Provided pt a copy. Initialed, dated, & timed a copy & placed in chart.
--- NOTE | 2023-09-17 16:08 | PM.PN ---
Subjective Subjective: Patient was sleeping when I saw him. He is reported by the nurse to have set up in chair today. Try to get him to a correction tomorrow. Vitals/I&O/Wt Last Vital Signs Temp 98.9 F 09/17/23 15:33 Pulse 103 H 09/17/23 15:33 Resp 18 09/17/23 15:33 BP 142/88 09/17/23 15:33 Pulse Ox 94 09/17/23 15:33 O2 Del Method Room Air 09/17/23 15:33 O2 Flow Rate 2 09/17/23 03:02 09/17/23 09/17/23 09/17/23 06:59 14:59 22:59 Intake Total 480 / 3834 1896 / 1896 Output Total 1500 / 3700 1999 Balance -1020 / 134 -104 / -104 Weight last 48 hrs Weight 260 lb 1 oz Weight 251 lb 1 oz Physical Exam Narrative: Resting comfortably in bed. Urinary Catheter Management: Gaxiola: Cath Placed During This Visit: yes, but has since been removed by the nurse Reason for Continuing Indwelling Catheter: Acute Urinary Retention or Obstruction Urinary Catheter Date of Insertion: 09/16/23 Urinary Catheter Time of Insertion: 16:00 Date Urinary Catheter Removed: 09/16/23 Time Urinary Catheter Discontinued: 10:00 Data 09/17/23 05:27 09/17/23 05:27 Micro: Microbiology 09/16/23 21:00 Blood Culture - Preliminary Blood SPECIMEN COLLECTED 09/16/23 21:11 Blood Culture - Preliminary Blood SPECIMEN COLLECTED A&P Assessment and plan (1) Status post lumbar spinal fusion: Postop day #2 from lumbar fusion. Patient doing well for the most part pain control issues. Patient does not want take any narcotic meds however. Possible correction placement tomorrow Attestations Medical Necessity Statement*: Pain control Coding Level of Care Code Acute Code for Chg Fwd Diagnoses Status post lumbar spinal fusion Z98.1
[2023-09-17 16:31] LABS: Glucose Point of Care 102 mg/dL (70-110)
[2023-09-17] MEDS: ziprasidone hcl 40 mg Capsule 80 MG PO (17:57)
[2023-09-17] MEDS: magnesium hydroxide 30 mL UDC PO (17:57)
[2023-09-17 20:32] LABS: Glucose Point of Care 139 mg/dL (70-110)
[2023-09-17] MEDS: calcium carb-vit d 500mg-200unit 1 Tablet 1 EACH PO (20:45)
[2023-09-17] MEDS: quetiapine 100 mg Tablet 200 MG PO (20:45)
[2023-09-17] MEDS: montelukast sodium 10 mg Tablet PO (20:45)
[2023-09-18] VITALS: BP 93/58; PULSE 103; RESP 20; TEMP 37.4; O2SAT 96
[2023-09-18 04:00] VITALS: BP 93/58; PULSE 92; RESP 18; TEMP 36.9; O2SAT 95
[2023-09-18] MEDS: venlafaxine ER (24HR) 75 mg Capsule PO (05:15)
[2023-09-18] MEDS: venlafaxine ER (24HR) 150 mg Capsule PO (05:15)
[2023-09-18] MEDS: TRAMadol 50 mg Tablet 100 MG PO ×3 (05:15→14:43)
[2023-09-18 06:43] LABS: Basophils % 0.3 %; Eosinophils # 0.2 10^3/uL (0.0-0.8); Eosinophils % 2.3 %; Hematocrit 28.3 % (37-53); Lymphocytes # 1.4 10^3/uL (0.8-4.8); Mean Corpuscular HGB Conc 32.5 g/dL (30-55); Mean Corpuscular Hemoglobin 29.6 pg (27-33); Mean Platelet Volume 10.4 fL (7.4-10.4); Monocytes # 1.1 10^3/uL (0.2-0.9); Monocytes % 12.3 %; Neutrophils # 6.17 10^3/uL (1.8-7.7); Neutrophils % 68.4 %; Nucleated Red Blood Cells % 0 %; Platelet Count 176 10^3/cmm (157-399); Red Blood Count 3.11 10^6/uL (3.85-5.65); Red Cell Distribution Width 13.4 % (12.1-15.1); White Blood Count 9.02 10^3/uL (3.29-11.43)
[2023-09-18 06:48] LABS: Glucose Point of Care 118 mg/dL (70-110)
[2023-09-18 07:01] LABS: Anion Gap 11.4 (5-19); Blood Urea Nitrogen 14 mg/dL (8-23); Calcium 8.6 mg/dL (8.5-10.5); Carbon Dioxide 27 mmol/L (22-29); Chloride 96 mmol/L (98-107); Creatinine Clr Calc Pharmacy 72.3325; Glomerular Filtration Rate 55.6 mL/min (90-130); Glucose 106 mg/dL (65-115); Osmolality Calculated 271 mOsm/kg (285-295); Potassium 4.4 mmol/L (3.5-5.1); Sodium 130 mmol/L (136-145)
[2023-09-18 08:01] VITALS: BP 99/64; PULSE 93; RESP 16; TEMP 37.2; O2SAT 94
--- NOTE | 2023-09-18 08:52 | P.PN_ITS ---
Subjective 2 Subjective: seen this am bp borderline low ns bolus given continue iv fluids Vitals/I&O/Wt Last Vital Signs Temp 99 F 09/18/23 08:01 Pulse 93 09/18/23 08:01 Resp 16 09/18/23 08:01 BP 99/64 09/18/23 08:01 Pulse Ox 94 09/18/23 08:01 O2 Del Method Nasal Cannula 09/18/23 08:01 O2 Flow Rate 2 09/17/23 03:02 09/17/23 09/18/23 09/18/23 22:59 06:59 14:59 Intake Total 1716 / 3612 290 / 3902 480 / 480 Output Total 2400 / 4400 1900 / 6300 900 / 900 Balance -684 / -788 -1610 / -2398 -420 / -420 Weight last 48 hrs Weight 116.658 kg Weight 117.962 kg Physical Exam 2 Const: COMMON NORMALS: no acute distress and patient oriented x3 HENMT: COMMON NORMALS: normocephalic HEAD & SCALP: normocephalic Eye: COMMON NORMALS: Equal, round and reactive pupils present and EOMs intact bilaterally PUPIL: Yes Equal, round and reactive pupils present Neck/C-Spine: COMMON NORMALS: full ROM and no lymphadenopathy Lymph: LYMPHATIC: no lymphadenopathy noted Resp: COMMON NORMALS: normal respiratory effort, No retractions, No use of accessory muscles and clear to auscultation bilaterally AUSCULTATION: clear to auscultation bilaterally Cardio: COMMON NORMALS: regular rate, regular rhythm, S1 normal heart sound present and S2 normal heart sound present RATE: regular rate RHYTHM: r egular rhythm HEART SOUNDS: S1 normal heart sound present and S2 normal heart sound present GI: COMMON NORMALS: Normal to inspection, nondistended, normoactive bowel sounds present and non-tender : COMMON NORMALS: Yes no CVA tenderness BLADDER/KIDNEY EXAM: Yes no CVA tenderness Back/Pelvis: COMMON NORMALS: no CVA tenderness OTHER: Surgical site looks clean and dry Extremity: COMMON NORMALS: no calf tenderness and no pedal edema Neuro: COMMON NORMALS: patient oriented x3, CN's II-XII intact bilaterally, moves all extremities and no focal motor deficits Psych: COMMON NORMALS: mental status grossly normal Urinary Catheter Management: Gaxiola: Cath Placed During This Visit: yes, but has since been removed by the nurse Reason for Continuing Indwelling Catheter: Acute Urinary Retention or Obstruction Urinary Catheter Date of Insertion: 09/16/23 Urinary Catheter Time of Insertion: 16:00 Date Urinary Catheter Removed: 09/16/23 Time Urinary Catheter Discontinued: 10:00 Data 09/18/23 06:23 09/18/23 06:23 Micro: Microbiology 09/16/23 21:00 Blood Culture - Preliminary Blood NEGATIVE TO DATE 09/16/23 21:11 Blood Culture - Preliminary Blood NEGATIVE TO DATE A&P Assessment and plan (1) Fever: (2) Status post lumbar spinal fusion: (3) Postoperative anemia: Plan Status post lumbar spinal fusion ? Postop day 1 ? Estimated blood loss 1300 cc ? Status post 1 unit PRBC, currently receiving another unit of blood Postoperative anemia ? Estimated blood loss 1300 cc, status post 1 unit PRBC currently receiving his second unit of blood ? Ferritin, iron Postoperative fevers, hypotension ? CBC, CMP, UA, chest x-ray, lactic acid, blood cultures, TSH, cortisol ? Monitor hemodynamics closely ? Will consider midodrine ? Hold blood pressure medications ? Hold Toradol ? Continue IV fluids Full code Gaxiola catheter placed ? SCDs for DVT prophylaxis Check orthostatic vitals. - negative Continue to monitor blood pressure. pt awaiting insurance authorization Attestations 2 Medical Necessity Statement*: Awaiting fci placement Coding Level of Care Code Acute Code for Chg Fwd Diagnoses Fever R50.9 Status post lumbar spinal fusion Z98.1 Postoperative anemia D64.9
[2023-09-18] MEDS: sodium chloride 0.9% 1,000 ML 999 ML IV (09:08)
[2023-09-18] MEDS: omega-3 fatty acids 1,000 mg Capsule 1000 MG PO (09:09)
[2023-09-18] MEDS: docusate sodium 100 mg Capsule PO ×2 (09:09→17:37)
[2023-09-18] MEDS: BuSPIRONE 10 mg Tablet 20 MG PO (09:09)
[2023-09-18] MEDS: levothyroxine 75 mcg Tablet PO (09:09)
[2023-09-18] MEDS: gabapentin 300 mg Capsule PO ×3 (09:09→20:22)
[2023-09-18] MEDS: magnesium oxide 400 mg tablet PO (09:09)
[2023-09-18] MEDS: cholecalciferol (vitamin D3) 1,000 unit Tablet 500 UNIT PO (09:09)
[2023-09-18] MEDS: pantoprazole DR 40 mg Tablet PO (09:09)
[2023-09-18] MEDS: ascorbic acid 500 mg Tablet PO (09:09)
[2023-09-18] MEDS: cyclobenzaprine 10 mg Tablet PO ×2 (09:09→14:43)
--- NOTE | 2023-09-18 10:05 | PM.PN ---
Subjective Subjective: Patient is postop day 3 from lumbar fusion. Awaiting skilled nursing placement. Patient is ambulating well with physical therapy pain is getting better controlled. Vitals/I&O/Wt Last Vital Signs Temp 99 F 09/18/23 08:01 Pulse 93 09/18/23 08:01 Resp 16 09/18/23 08:01 BP 99/64 09/18/23 08:01 Pulse Ox 94 09/18/23 08:01 O2 Del Method Nasal Cannula 09/18/23 08:01 O2 Flow Rate 2 09/17/23 03:02 09/17/23 09/18/23 09/18/23 22:59 06:59 14:59 Intake Total 1716 / 3612 290 / 3902 1480 / 1480 Output Total 2400 / 4400 1900 / 6300 900 / 900 Balance -684 / -788 -1610 / -2398 580 / 580 Weight last 48 hrs Weight 257 lb 3 oz Weight 260 lb 1 oz Physical Exam Narrative: Patient currently working with physical therapy getting she is on Urinary Catheter Management: Gaxiola: Cath Placed During This Visit: yes, but has since been removed by the nurse Reason for Continuing Indwelling Catheter: Acute Urinary Retention or Obstruction Urinary Catheter Date of Insertion: 09/16/23 Urinary Catheter Time of Insertion: 16:00 Date Urinary Catheter Removed: 09/16/23 Time Urinary Catheter Discontinued: 10:00 Data 09/18/23 06:23 09/18/23 06:23 Micro: Microbiology 09/16/23 21:00 Blood Culture - Preliminary Blood NEGATIVE TO DATE 09/16/23 21:11 Blood Culture - Preliminary Blood NEGATIVE TO DATE A&P Assessment and plan (1) Status post lumbar spinal fusion: Patient is postop day 3 lumbar fusion. At this point okay to discharge to skilled nursing. Up with physical therapy Awaiting skilled nursing placement Attestations Medical Necessity Statement*: Awaiting skilled nursing placement Coding Level of Care Code Acute Code for Chg Fwd Diagnoses Status post lumbar spinal fusion Z98.1
[2023-09-18 11:23] LABS: Glucose Point of Care 153 mg/dL (70-110)
[2023-09-18 11:43] VITALS: BP 93/59; PULSE 84; RESP 16; TEMP 36.5; O2SAT 98
[2023-09-18] MEDS: insulin lispro 100 unit/1 mL SUBCUT (13:02)
[2023-09-18 16:00] VITALS: BP 107/63; PULSE 92; RESP 16; TEMP 36.4; O2SAT 90
[2023-09-18 17:10] LABS: Glucose Point of Care 131 mg/dL (70-110)
[2023-09-18] MEDS: ziprasidone hcl 40 mg Capsule 80 MG PO (17:37)
[2023-09-18 20:00] VITALS: BP 102/62; PULSE 90; RESP 17; TEMP 36.9; O2SAT 93
[2023-09-18] MEDS: quetiapine 100 mg Tablet 200 MG PO (20:22)
[2023-09-18] MEDS: calcium carb-vit d 500mg-200unit 1 Tablet 1 EACH PO (20:22)
[2023-09-18] MEDS: montelukast sodium 10 mg Tablet PO (20:22)
[2023-09-18 20:54] LABS: Glucose Point of Care 227 mg/dL (70-110)
[2023-09-19] VITALS (10 sets, daily range): BP systolic 85–129; BP diastolic 55–84; PULSE 72–94; RESP 16–18; TEMP 36.9–37.8; O2SAT 92–98
[2023-09-19] MEDS: TRAMadol 50 mg Tablet 100 MG PO ×3 (05:52→20:38)
[2023-09-19] MEDS: venlafaxine ER (24HR) 75 mg Capsule PO (05:52)
[2023-09-19] MEDS: venlafaxine ER (24HR) 150 mg Capsule PO (05:52)
[2023-09-19 06:44] LABS: Glucose Point of Care 130 mg/dL (70-110)
--- NOTE | 2023-09-19 08:45 | PM.DCS ---
Discharge Providers Date of Admission: 09/15/23 11:31 Date of Discharge: September 19, 2023 Attending Provider at Admission: Manuel Granger DO Attending Provider at Discharge: Manuel Granger DO Primary Care Provider: Esvin Villeda DO Diagnoses at Discharge Discharge Diagnosis (1) Fever: Status: Acute (2) Status post lumbar spinal fusion: Status: Acute (3) Postoperative anemia: Status: Acute Reason for Visit Reason for Visit: M48.062 Physical Exam Narrative: Patient complaining of left leg pain otherwise back pain is improved significantly. Patient has a [place] in plan is to have him follow-up with urology. Urinary Catheter Management: [place]: Cath Placed During This Visit: yes, but has since been removed by the nurse Reason for Continuing Indwelling Catheter: Acute Urinary Retention or Obstruction Urinary Catheter Date of Insertion: 09/16/23 Urinary Catheter Time of Insertion: 16:00 Date Urinary Catheter Removed: 09/16/23 Time Urinary Catheter Discontinued: 10:00 Discharge Data Studies Completed and Pending Completed Studies During Hospitalization Category Date Time Status XR chest 1V portable [id number] Routine Exams 09/16/23 19:17 Completed XR lumbar spine 2-3V* [id number] Routine Exams 09/15/23 15:57 Completed Pending at discharge Category Date Time Status Blood Culture Stat Lab 09/16/23 21:00 Results Radiology Impressions Lumbar Spine X-Ray 09/15/23 15:57 IMPRESSION: Intraoperative imaging during the lumbosacral fusion. Chest X-Ray 09/16/23 19:17 IMPRESSION: Irregular opacities in the right lung base. Laboratory Results WBC 9.02 10^3/uL (3.29-11.43) 09/18/23 06:23 RBC 3.11 10^6/uL (3.85-5.65) L 09/18/23 06:23 Hgb 9.20 g/dL (11.27-16.99) L 09/18/23 06:23 Hct 28.3 % (37-53) L 09/18/23 06:23 MCV 91.0 fl (82-101) 09/18/23 06:23 MCH 29.6 pg (27-33) 09/18/23 06:23 MCHC 32.5 g/dL (30-55) 09/18/23 06:23 RDW 13.4 % (12.1-15.1) 09/18/23 06:23 Plt Count 176 10^3/cmm (157-399) 09/18/23 06:23 MPV 10.4 fL (7.4-10.4) 09/18/23 06:23 Neut % (Auto) 68.4 % 09/18/23 06:23 Lymph % (Auto) 16.0 % 09/18/23 06:23 [place] % (Auto) 12.3 % 09/18/23 06:23 Eos % (Auto) 2.3 % 09/18/23 06:23 Baso % (Auto) 0.3 % 09/18/23 06:23 Neut # (Auto) 6.17 10^3/uL (1.8-7.7) 09/18/23 06:23 Lymph # (Auto) 1.4 10^3/uL (0.8-4.8) 09/18/23 06:23 [place] # (Auto) 1.1 10^3/uL (0.2-0.9) H 09/18/23 06:23 Eos # (Auto) 0.2 10^3/uL (0.0-0.8) 09/18/23 06:23 Baso # (Auto) 0.0 10^3/uL (0.0-0.1) 09/18/23 06:23 Nucleated RBC % (auto) 0 % 09/18/23 06:23 Nucleated RBCs # 0.0 /100WBC 09/18/23 06:23 Sodium 130 mmol/L (136-145) L 09/18/23 06:23 Potassium 4.4 mmol/L (3.5-5.1) 09/18/23 06:23 Chloride 96 mmol/L (98-107) L 09/18/23 06:23 Carbon Dioxide 27 mmol/L (22-29) 09/18/23 06:23 Anion Gap 11.4 (5-19) 09/18/23 06:23 BUN 14 mg/dL (8-23) 09/18/23 06:23 Creatinine 1.3 mg/dL (0.7-1.2) H 09/18/23 06:23 GFR Calculation 55.6 mL/min (90-130) L 09/18/23 06:23 Glucose 106 mg/dL (65-115) 09/18/23 06:23 POC Glucose 130 mg/dL (70-110) H 09/19/23 06:40 Calculated Osmolality 271 mOsm/kg (285-295) L 09/18/23 06:23 Lactic Acid 1.5 mmol/L (0.5-2.2) 09/16/23 21:11 Lactate 1.0 mmol/L (0.5-2.2) 09/16/23 03:17 Calcium 8.6 mg/dL (8.5-10.5) 09/18/23 06:23 Iron 30 ug/dL (59-158) L 09/16/23 21:11 Ferritin 46 ng/mL (30-400) 09/16/23 21:11 Total Bilirubin 0.7 mg/dL (0.15-1.2) 09/16/23 21:11 AST 43 U/L (0-40) H 09/16/23 21:11 ALT 19 U/L (0-41) 09/16/23 21:11 Alkaline Phosphatase 50 U/L (40-130) 09/16/23 21:11 Total Protein 5.2 g/dL (6.6-8.7) L 09/16/23 21:11 Albumin 3.1 g/dL (3.5-5.2) L 09/16/23 21:11 Globulin 2.1 g/dL (1.3-4.6) 09/16/23 21:11 TSH 0.60 uIU/mL (0.27-4.20) 09/16/23 21:11 Free T4 1.28 ng/dL (0.82-1.77) 09/16/23 21:11 Free T3 2.0 PG/ML (2.0-4.4) 09/16/23 21:11 Random Cortisol 3.73 ug/dL (2.47-19.5) 09/16/23 21:11 Urine Color Yellow (Yellow) 09/16/23 21:34 Urine Appearance Clear (CLEAR) 09/16/23 21:34 Urine pH 5 (5-7) 09/16/23 21:34 Ur Specific [place] 1.015 (1.005-1.030) 09/16/23 21:34 Urine Protein Neg (Negative) 09/16/23 21:34 Urine Glucose (UA) Norm (Normal) 09/16/23 21:34 Urine Ketones Negative (Negative) 09/16/23 21:34 Urine Blood Neg (Negative) 09/16/23 21:34 Urine Nitrate Negative (Negative) 09/16/23 21:34 Urine Bilirubin Neg (Negative) 09/16/23 21:34 Urine Urobilinogen Neg mg/dL (Negative) 09/16/23 21:34 Ur Leukocyte Esterase Negative (Negative) 09/16/23 21:34 Blood Type O Positive 09/15/23 06:25 Rho(D) Type Rh positive 09/15/23 06:25 Antibody Screen Negative 09/15/23 06:25 Crossmatch See Detail 09/15/23 06:25 Vitals Last Vital Signs Temp 98.5 F 09/19/23 07:25 Pulse 76 09/19/23 07:25 Resp 18 09/19/23 07:25 BP 120/82 09/19/23 07:25 Pulse Ox 94 09/19/23 07:25 O2 Del Method Room Air 09/19/23 07:25 O2 Flow Rate 2 09/17/23 03:02 Discharge Plan Discharge Patient Disposition: Xfer SNF Condition: Stable Prescriptions: New tramadol 50 mg tablet 50 mg PO Q6H PRN (Reason: pain) 7 Days Qty: 30 0RF Continued omega-3 fatty acids [Fish Oil Concentrate] 1,000 mg capsule 1,000 mg PO DAILY vitamin B complex [B Complex-Vitamin B12] Tablet 1 tab PO DAILY magnesium 250 mg tablet 400 mg PO DAILY calcium carbonate-vitamin D3 [Calcium 500 + D] 500 mg(1,250mg) -200 unit tablet 1 tab PO BEDTIME potassium gluconate 595 mg (99 mg) tablet 595 mg PO DAILY garlic 1,000 mg capsule 1,000 mg PO DAILY ascorbate calcium (vitamin C) 500 mg tablet 500 mg PO DAILY kkor-nrwdqf-asla.-chrom-gr tea 2-100 gram-mcg tablet,chewable 1 tab PO DAILY biotin 2,500 mcg capsule 5,000 mcg PO DAILY acetaminophen [Tylenol Extra Strength] 500 mg tablet 2,000 mg PO BID Rx Instructions: every am (DME) lancing device [TRUEdraw Lancing Device] Misc See Rx Instructions .Route Qty: 1 0RF Rx Instructions: As directed to test blood sugar BID (DME) diabetic supplies, miscellan. [facility] [place] See Rx Instructions .ROUTE .MEDSUPPLY Qty: 1 0RF Rx Instructions: Shoes and inserts. (DME) spectrum AFO See Rx Instructions .Route .MEDSUPPLY Qty: 1 0RF Rx Instructions: custom made by [employer] levothyroxine 75 mcg tablet 75 mcg PO DAILY Qty: 90 3RF Rx Instructions: needs labs for refills quetiapine 200 mg tablet 200 mg PO BEDTIME Qty: 90 2RF Rx Instructions: Take one tablet at bedtime buspirone 10 mg tablet 20 mg PO .morning Qty: 180 2RF Rx Instructions: Take two tablets every morning cyclobenzaprine 10 mg tablet 10 mg PO TID PRN (Reason: muscle spasm) Qty: 60 1RF (DME) lancets [TRUEplus Lancets] 28 gauge [facility] [place] See Rx Instructions .Route Qty: 200 3RF Rx Instructions: As directed to test BID (DME) blood-glucose meter [True Metrix Glucose Meter] Kit See Rx Instructions .Route Qty: 1 0RF Rx Instructions: As directed to test BS BID (DME) blood pressure monitor See Rx Instructions .Route .MEDSUPPLY Qty: 1 0RF Rx Instructions: As directed metformin 1,000 mg tablet 1,000 mg PO BID Qty: 180 3RF (DME) True Metrix Glucose Test Strip Strip See Rx Instructions .Route Qty: 200 3RF Rx Instructions: to test BS BID (DME) diabetic supplies, miscellan. [facility] [place] See Rx Instructions .Route Qty: 200 11RF Rx Instructions: As directed pantoprazole 40 mg tablet,delayed release (DR/EC) 40 mg PO DAILY Qty: 90 3RF gabapentin 300 mg capsule 300 mg PO TID 90 Days Qty: 270 3RF lisinopril 10 mg tablet 10 mg PO DAILY Qty: 90 3RF ziprasidone HCl [Geodon] 80 mg capsule 80 mg PO .5 pm Qty: 90 2RF Rx Instructions: Take one capsule at 5 pm with supper venlafaxine [Effexor XR] 75 mg capsule,extended release 24hr 75 mg PO QAM Qty: 90 2RF Rx Instructions: Take one capsule every morning for total dose of 225 mg venlafaxine [Effexor XR] 150 mg capsule,extended release 24hr 150 mg PO QAM Qty: 90 2RF Rx Instructions: Take one capsule every morning (DME) bone growth stimulator See Rx Instructions .Route .MEDSUPPLY Qty: 1 0RF Rx Instructions: As directed aspirin 81 mg Tablet,Delayed Release (Dr/Ec) 81 mg PO DAILY cholecalciferol (vitamin D3) [Vitamin D3] 10 mcg (400 unit) Capsule 10 mcg PO DAILY meloxicam 15 mg tablet 15 mg PO DAILY Rx Instructions: TAKE 1 TABLET EVERY DAY Maxzide-25mg 37.5-25 mg tablet 1 tab PO QAM montelukast 10 mg tablet 10 mg PO BEDTIME Rx Instructions: TAKE 1 TABLET AT BEDTIME Discharge Orders: Discharge Order (Routine); Ordered 09/19/23 Ordered By: Manuel Granger Referrals: Manuel Granger, [Physician] - 09/30/23 3:15 pm Discharge Diet: Advance as tolerated Discharge Activity: Limit activity as instructed Patient Instructions: Opioid Safety Activity Restrictions/Additional Instructions: Thank you for [facility] for your care! The following is a list of instructions, from your provider, to follow upon your discharge to ensure you have the optimal recovery from your recent injury orsurgery. Follow-up care is a chang part of your treatment and safety. Be sure to make and go to all appointments, and call your doctor if you are having problems. If you do not already have a follow-up appointment made, call Dr. Granger office in the next 1-3 days to make follow up appointment for 2 weeks at [phone]. It is also a good idea to know your test results and keep a list of the medicines you take. Medications will be prescribed for you at your provider's discretion. These medications are to be used as instructed; if they are taken more often that prescribed they will not be refilled early and in most cases will not be refilled at all. > When a refill is needed,you should contact janey pedroza 2-3 business days before your prescription runs out. Medications will NOT be refilled by health administration teacher providers after hours! > Many pain medications contain Tylenol (Acetaminophen). Do not consume more than 4,000 mg of Tylenol per day in total with any combination ofmedications. > Pain medications can cause constipation. Please use an over the counter stool softener as directed, while taking pain medications. Consulty our local pharmacist with questions or recommendations on stool softeners. If constipation persists, contact our office or your primary care provider. > While under our care,you are not to receive pain medications or other controlled substances from any other provider unless our office is notified and approves. Any attempts to do so will result in refusal to prescribe any further pain medications and possible dismissal from our practice. ? Your wound and/or dressing should remain clean and dry for 7 days after surgery. On postoperative day 7 > It is normal for there to be a small amount of discharge (bloody or blood tinged) present from a surgical wound for the first 1-3days. > The wound should be examined twice a day for signs of infection. Mild redness or bruising is to be expected but indications that an infection maybe starting would include; An increase in redness, swelling, or discharge, a foul odor present around the incision, and/or a fever greater than 101 ?F ? Showering is permitted, however we ask that you do not take a bath, sit in a whirlpool / Jacuzzi, or go swimming for 1 month. For only the first 2 days after surgery, lt wilt be necessary for you to cover your wound/dressing with plastic and tape to keep it dry. ? Walking is essential for the healing process after surgery. We would like you to slowly advance your walking. This should be done on relatively flat clear ground (inside or out) or can be done on a treadmill. Remember this goal does not have to happen all at once, slowly increase your distance and duration. This can be broken into more more than one walk per day as tolerated. Patients who walk as directed after surgery rarely require Physical Therapy. In the unlikely event this issue arises your provider will direct hospital staff to make the appropriate arrangements. ? No lifting over 5 pounds {a gallon of milk) or bending/twisting until further notice. Each of these activities places an unnecessary amount of stress onto the body and can impede the delicate healing process. > Instead of bending at the waist, keep your back straight and bend at the knees. > Instead of twisting your torso, keep your back straight and turn your entire body with your feet. ? You may sleep in any position which makes you comfortable. Many patients find comfort sleeping in a reclining chair. It is not abnormal to have difficulty sleeping for the first several weeks following your surgery. We recommend trying Benadry! or Tylenol PM as directed to help with your sleeping difficulties. Both medications are over the counter and available withoutprescription. ? NO SMOKING!!! Smoking dramatically increases the probability of developing postoperative wound infections. ? Common complaints after lumbar and/or thoracic spine surgery include, but are not limited to: numbness and/or tingling in the legs, pain around the incision and surrounding tissues, muscle spasms, or stiffness of the middle to low back. Contact our office if these symptoms persist or if an acute change occurs. ? No driving for the first 3-5days, and not while taking narcotics until seen at your follow-up appointment and cleared. There are no restrictions for riding on short trips, however if you take a longer trip, arrangements should be made to make regular stops to get out of the vehicle and stretch . ? Swelling is an unfortunate event that will take place with any surgery and is the primary source of your postoperative discomfort. While walking and regular approved activities helps control inflammation, there are additional steps you can take to minimizeswelling. > Place ice over the surgical site and surrounding tissue for twenty minutes, followed by applying a low/medium heat (heating pad) for an additional twenty minutes every 1-2 hours as needed for painrelief. > You may use of over the counter anti-inflammatory medications (Ibuprofen, Motrin, Aleve, Advil, etc) as directed on the package label. These types of medicines wm significantly reduce the amount of discomfort you experience after surgery from swelling. It should be noted that if you have and allergy to any of these medications, or a history of ulcers or kidney disease you should consult you primary care provider prior to starting these medications. Discharge Attestations Time Spent in Discharge Care*: less than 30 min Quality Metrics Clinical Quality Measures [ No reported AMI, CVA or VTE this stay] Coding Level of Care Code Acute Code for Chg Fwd Diagnoses Fever R50.9 Status post lumbar spinal fusion Z98.1 Postoperative anemia D64.9
[2023-09-19] MEDS: cyclobenzaprine 10 mg Tablet PO ×3 (08:53→20:39)
[2023-09-19] MEDS: BuSPIRONE 10 mg Tablet 20 MG PO (08:53)
[2023-09-19] MEDS: gabapentin 300 mg Capsule PO ×3 (08:53→20:39)
[2023-09-19] MEDS: cholecalciferol (vitamin D3) 1,000 unit Tablet 500 UNIT PO (08:53)
[2023-09-19] MEDS: levothyroxine 75 mcg Tablet PO (08:53)
[2023-09-19] MEDS: acetaminophen 325 mg Tablet 650 MG PO ×2 (08:53→21:08)
[2023-09-19] MEDS: docusate sodium 100 mg Capsule PO ×2 (08:53→17:41)
[2023-09-19] MEDS: magnesium oxide 400 mg tablet PO (08:53)
[2023-09-19] MEDS: ascorbic acid 500 mg Tablet PO (08:53)
[2023-09-19] MEDS: omega-3 fatty acids 1,000 mg Capsule 1000 MG PO (08:53)
[2023-09-19] MEDS: pantoprazole DR 40 mg Tablet PO (08:53)
--- NOTE | 2023-09-19 09:34 | P.PN_ITS ---
Subjective 2 Subjective: seen this am no acute events overnight pt awaiting level 2 assessment for placement into [facility] BP stable - reviewed Vitals/I&O/Wt Last Vital Signs Temp 98.5 F 09/19/23 07:25 Pulse 76 09/19/23 07:25 Resp 18 09/19/23 07:25 BP 120/82 09/19/23 07:25 Pulse Ox 94 09/19/23 07:25 O2 Del Method Room Air 09/19/23 07:25 O2 Flow Rate 2 09/17/23 03:02 09/18/23 09/19/23 09/19/23 22:59 06:59 14:59 Intake Total 120 / 3080 480 / 3560 120 / 120 Output Total 2700 / 3600 1800 / 5400 Balance -2580 / -520 -1320 / -1840 120 / 120 Weight last 48 hrs Weight 114.504 kg Weight 116.658 kg Physical Exam 2 Const: COMMON NORMALS: no acute distress and patient oriented x3 HENMT: COMMON NORMALS: normocephalic HEAD & SCALP: normocephalic Eye: COMMON NORMALS: Equal, round and reactive pupils present and EOMs intact bilaterally PUPIL: Yes Equal, round and reactive pupils present Neck/C-Spine: COMMON NORMALS: full ROM and no lymphadenopathy Lymph: LYMPHATIC: no lymphadenopathy noted Resp: COMMON NORMALS: normal respiratory effort, No retractions, No use of accessory muscles and clear to auscultation bilaterally AUSCULTATION: clear to auscultation bilaterally Cardio: COMMON NORMALS: regular rate, regular rhythm, S1 normal heart sound present and S2 normal heart sound present RATE: regular rate RHYTHM: r egular rhythm HEART SOUNDS: S1 normal heart sound present and S2 normal heart sound present GI: COMMON NORMALS: Normal to inspection, nondistended, normoactive bowel sounds present and non-tender : COMMON NORMALS: Yes no CVA tenderness BLADDER/KIDNEY EXAM: Yes no CVA tenderness Back/Pelvis: COMMON NORMALS: no CVA tenderness OTHER: Surgical site looks clean and dry Extremity: COMMON NORMALS: no calf tenderness and no pedal edema Neuro: COMMON NORMALS: patient oriented x3, CN's II-XII intact bilaterally, moves all extremities and no focal motor deficits Psych: COMMON NORMALS: mental status grossly normal Urinary Catheter Management: Purdy: Cath Placed During This Visit: yes, but has since been removed by the nurse Reason for Continuing Indwelling Catheter: Acute Urinary Retention or Obstruction Urinary Catheter Date of Insertion: 09/16/23 Urinary Catheter Time of Insertion: 16:00 Date Urinary Catheter Removed: 09/16/23 Time Urinary Catheter Discontinued: 10:00 Data 09/18/23 06:23 09/18/23 06:23 A&P Assessment and plan (1) Fever: (2) Status post lumbar spinal fusion: (3) Postoperative anemia: Plan Status post lumbar spinal fusion ? Postop day 3 ? Estimated blood loss 1300 cc ? Status post 1 unit PRBC, currently receiving another unit of blood Postoperative anemia ? Estimated blood loss 1300 cc, status post 1 unit PRBC currently receiving his second unit of blood ? Ferritin, iron - HB STABLE 9.2 5/10 Postoperative fevers, hypotension ? CBC, CMP, UA, chest x-ray, lactic acid, blood cultures, TSH, cortisol ? Monitor hemodynamics closely ? Will consider midodrine ? Hold blood pressure medications ? Hold Toradol ? Continue IV fluids Full code Purdy catheter placed ? SCDs for DVT prophylaxis Check orthostatic vitals. - negative Continue to monitor blood pressure. Will check CBC in AM BP and HB stable so far. Continue purdy since pt was retaining. pt awaiting insurance authorization Attestations 2 Medical Necessity Statement*: awaiting insurance authorization. defer to primary team Diagnoses Fever R50.9 Status post lumbar spinal fusion Z98.1 Postoperative anemia D64.9
[2023-09-19 11:11] LABS: Glucose Point of Care 157 mg/dL (70-110)
[2023-09-19 16:54] LABS: Glucose Point of Care 182 mg/dL (70-110)
[2023-09-19] MEDS: ziprasidone hcl 40 mg Capsule 80 MG PO (17:41)
[2023-09-19] MEDS: insulin lispro 100 unit/1 mL SUBCUT (17:41)
[2023-09-19 20:26] LABS: Glucose Point of Care 177 mg/dL (70-110)
[2023-09-19] MEDS: calcium carb-vit d 500mg-200unit 1 Tablet 1 EACH PO (20:38)
[2023-09-19] MEDS: montelukast sodium 10 mg Tablet PO (20:39)
[2023-09-19] MEDS: quetiapine 100 mg Tablet 200 MG PO (20:39)
[2023-09-20] VITALS (8 sets, daily range): BP systolic 93–125; BP diastolic 56–80; PULSE 73–96; RESP 17–19; TEMP 36.4–37.1; O2SAT 94–98
[2023-09-20] MEDS: venlafaxine ER (24HR) 150 mg Capsule PO (06:04)
[2023-09-20] MEDS: venlafaxine ER (24HR) 75 mg Capsule PO (06:04)
[2023-09-20 06:14] LABS: Basophils # 0.1 10^3/uL (0.0-0.1); Basophils % 0.8 %; Eosinophils # 0.4 10^3/uL (0.0-0.8); Eosinophils % 4.5 %; Hematocrit 30.1 % (37-53); Lymphocytes # 1.5 10^3/uL (0.8-4.8); Lymphocytes % 18.4 %; Mean Corpuscular HGB Conc 32.6 g/dL (30-55); Mean Corpuscular Hemoglobin 29.4 pg (27-33); Mean Corpuscular Volume 90.4 fl (82-101); Mean Platelet Volume 10.6 fL (7.4-10.4); Monocytes # 1.1 10^3/uL (0.2-0.9); Monocytes % 13.9 %; Neutrophils # 4.84 10^3/uL (1.8-7.7); Neutrophils % 60.8 %; Nucleated Red Blood Cells % 0 %; Platelet Count 264 10^3/cmm (157-399); Red Blood Count 3.33 10^6/uL (3.85-5.65); Red Cell Distribution Width 12.9 % (12.1-15.1); White Blood Count 7.97 10^3/uL (3.29-11.43)
[2023-09-20 06:32] LABS: Glucose Point of Care 108 mg/dL (70-110)
[2023-09-20 06:33] LABS: Blood Urea Nitrogen 18 mg/dL (8-23); Calcium 9.1 mg/dL (8.5-10.5); Carbon Dioxide 26 mmol/L (22-29); Chloride 98 mmol/L (98-107); Creatinine Clr Calc Pharmacy 76.7642; Glucose 108 mg/dL (65-115); Magnesium 1.8 mg/dL (1.7-2.3); Osmolality Calculated 280 mOsm/kg (285-295); Sodium 134 mmol/L (136-145)
[2023-09-20] MEDS: ascorbic acid 500 mg Tablet PO (08:43)
[2023-09-20] MEDS: gabapentin 300 mg Capsule PO ×3 (08:43→19:52)
[2023-09-20] MEDS: magnesium oxide 400 mg tablet PO (08:43)
[2023-09-20] MEDS: omega-3 fatty acids 1,000 mg Capsule 1000 MG PO (08:43)
[2023-09-20] MEDS: cholecalciferol (vitamin D3) 1,000 unit Tablet 500 UNIT PO (08:43)
[2023-09-20] MEDS: BuSPIRONE 10 mg Tablet 20 MG PO (08:43)
[2023-09-20] MEDS: docusate sodium 100 mg Capsule PO ×2 (08:43→17:30)
[2023-09-20] MEDS: levothyroxine 75 mcg Tablet PO (08:43)
[2023-09-20] MEDS: pantoprazole DR 40 mg Tablet PO (08:43)
--- NOTE | 2023-09-20 09:24 | P.PN_ITS ---
Subjective 2 Subjective: Patient seen and examined this morning doing well having some leg pain. Dressings clean dry and intact will work with therapy awaiting discharge placement Vitals/I&O/Wt Last Vital Signs Temp 97.5 F L 09/20/23 07:25 Pulse 73 09/20/23 07:25 Resp 19 H 09/20/23 07:25 BP 95/61 09/20/23 07:25 Pulse Ox 94 09/20/23 07:25 O2 Del Method Room Air 09/20/23 07:25 O2 Flow Rate 2 09/17/23 03:02 09/19/23 09/20/23 09/20/23 22:59 06:59 14:59 Intake Total 360 / 720 240 / 960 360 / 360 Output Total 1999 / 1999 350 / 2350 Balance -1640 / -1280 -110 / -1390 360 / 360 Weight last 48 hrs Weight 247 lb 3 oz Weight 252 lb 7 oz Physical Exam 2 Narrative: Dressing to the lumbar spine is clean dry and intact no signs of saturation patient distally to the extremities is able to wiggle the toes plantarflex and dorsiflex ankle as well as flex and extend at the knee there is endorses he has sensations intact to light touch of the feet bilaterally. Distal pulses are palpable. Urinary Catheter Management: [place]: Cath Placed During This Visit: yes, but has since been removed by the nurse Reason for Continuing Indwelling Catheter: Acute Urinary Retention or Obstruction Urinary Catheter Date of Insertion: 09/16/23 Urinary Catheter Time of Insertion: 16:00 Date Urinary Catheter Removed: 09/16/23 Time Urinary Catheter Discontinued: 10:00 Data 09/20/23 06:03 09/20/23 06:03 A&P Assessment and plan (1) Status post lumbar spinal fusion: Patient is postop day 4 lumbar fusion. At this point okay to discharge to half-way. Up with physical therapy Awaiting half-way placement Attestations 2 Medical Necessity Statement*: Awaiting half-way placement Coding Level of Care Code Acute Code for Chg Fwd Diagnoses Status post lumbar spinal fusion Z98.1
[2023-09-20 11:11] LABS: Glucose Point of Care 173 mg/dL (70-110)
[2023-09-20] MEDS: insulin lispro 100 unit/1 mL SUBCUT ×2 (11:28→17:31)
[2023-09-20] MEDS: TRAMadol 50 mg Tablet 100 MG PO ×2 (11:28→19:51)
--- NOTE | 2023-09-20 12:44 | PC.NURSE ---
Written report received. Care assumed.
[2023-09-20] MEDS: cyclobenzaprine 10 mg Tablet PO ×2 (13:16→19:53)
--- NOTE | 2023-09-20 14:30 | P.PN_ITS ---
Subjective 2 Subjective: Seen today. Patient says he has been having left-sided pain close to his knee. Otherwise doing okay. Vitals/I&O/Wt Last Vital Signs Temp 97.5 F L 09/20/23 11:58 Pulse 83 09/20/23 11:58 Resp 19 H 09/20/23 11:58 BP 125/80 09/20/23 11:58 Pulse Ox 97 09/20/23 11:58 O2 Del Method Room Air 09/20/23 11:58 O2 Flow Rate 2 09/17/23 03:02 09/19/23 09/20/23 09/20/23 22:59 06:59 14:59 Intake Total 360 / 720 240 / 960 720 / 720 Output Total 1999 / 1999 350 / 2350 Balance -1640 / -1280 -110 / -1390 720 / 720 Weight last 48 hrs Weight 112.122 kg Weight 114.504 kg Physical Exam 2 Const: COMMON NORMALS: no acute distress and patient oriented x3 HENMT: COMMON NORMALS: normocephalic HEAD & SCALP: normocephalic Eye: COMMON NORMALS: Equal, round and reactive pupils present and EOMs intact bilaterally PUPIL: Yes Equal, round and reactive pupils present Neck/C-Spine: COMMON NORMALS: full ROM and no lymphadenopathy Lymph: LYMPHATIC: no lymphadenopathy noted Resp: COMMON NORMALS: normal respiratory effort, No retractions, No use of accessory muscles and clear to auscultation bilaterally AUSCULTATION: clear to auscultation bilaterally Cardio: COMMON NORMALS: regular rate, regular rhythm, S1 normal heart sound present and S2 normal heart sound present RATE: regular rate RHYTHM: r egular rhythm HEART SOUNDS: S1 normal heart sound present and S2 normal heart sound present GI: COMMON NORMALS: Normal to inspection, nondistended, normoactive bowel sounds present and non-tender : COMMON NORMALS: Yes no CVA tenderness BLADDER/KIDNEY EXAM: Yes no CVA tenderness Back/Pelvis: COMMON NORMALS: no CVA tenderness OTHER: Surgical site looks clean and dry Extremity: COMMON NORMALS: no calf tenderness and no pedal edema Neuro: COMMON NORMALS: patient oriented x3, CN's II-XII intact bilaterally, moves all extremities and no focal motor deficits Psych: COMMON NORMALS: mental status grossly normal Urinary Catheter Management: Purdy: Cath Placed During This Visit: yes, but has since been removed by the nurse Reason for Continuing Indwelling Catheter: Acute Urinary Retention or Obstruction Urinary Catheter Date of Insertion: 09/16/23 Urinary Catheter Time of Insertion: 16:00 Date Urinary Catheter Removed: 09/16/23 Time Urinary Catheter Discontinued: 10:00 Data 09/20/23 06:03 09/20/23 06:03 A&P Assessment and plan (1) Fever: (2) Status post lumbar spinal fusion: (3) Postoperative anemia: Plan Status post lumbar spinal fusion ? Postop day 4 ? Estimated blood loss 1300 cc ? Status post 1 unit PRBC, ? Hemoglobin 9.80. Hemoglobin stable at this time Postoperative anemia?resolved ? Estimated blood loss 1300 cc, status post 1 unit PRBC currently receiving his second unit of blood ? Ferritin, iron - HB STABLE 9.8 09/19 Postoperative fevers, hypotension ? CBC, CMP, UA, chest x-ray, lactic acid, blood cultures, TSH, cortisol ? Monitor hemodynamics closely ? Will consider midodrine ? Hold blood pressure medications ? Hold Toradol ? Continue IV fluids ? Blood pressure stable. #Left thigh pain ? No fluctuance or tenderness on physical exam ? Check venous Dopplers bilateral lower extremities Full code Purdy catheter placed ? SCDs for DVT prophylaxis Check orthostatic vitals. - negative Continue to monitor blood pressure. BP and HB stable so far. Continue purdy since pt was retaining. pt awaiting insurance authorization Attestations 2 Medical Necessity Statement*: awaiting insurance authorization. defer to primary team Diagnoses Fever R50.9 Status post lumbar spinal fusion Z98.1 Postoperative anemia D64.9
--- NOTE | 2023-09-20 14:35 | USR_ITS ---
PROCEDURE INFORMATION: Exam: US Duplex Lower Extremity Veins, Bilateral Exam date and time: 09/20/2023 3:01 PM Age: 63 years old Clinical indication: Pain; Leg, upper; Left; Patient HX: Back SX within 3 weeks; Additional info: Thigh pain TECHNIQUE: Imaging protocol: Real-time duplex ultrasound of the bilateral extremities with 2-D pastor scale, color Doppler flow and spectral waveform analysis including responses to compression and other maneuvers (when performed) with image documentation. Complete exam focused on the lower extremity veins. COMPARISON: CR XR ankle RT min 3V* [id number] 11/27/2022 2:27 PM FINDINGS: Right deep veins: Unremarkable. The common femoral, femoral, proximal profunda femoral, popliteal, posterior tibial and peroneal veins are patent without thrombus. Normal Doppler waveforms. Normal compressibility and/or augmentation response. Left deep veins: Unremarkable. The common femoral, femoral, proximal profunda femoral, popliteal, posterior tibial and peroneal veins are patent without thrombus. Normal Doppler waveforms. Normal compressibility and/or augmentation response. Superficial veins: Greater saphenous veins at the saphenofemoral junctions are patent bilaterally without thrombus. Soft tissues: Unremarkable. US/[place] [id number] IMPRESSION: No sonographic evidence of deep venous thrombosis.
[2023-09-20 16:30] LABS: Glucose Point of Care 228 mg/dL (70-110)
[2023-09-20] MEDS: ziprasidone hcl 40 mg Capsule 80 MG PO (17:30)
[2023-09-20] MEDS: calcium carb-vit d 500mg-200unit 1 Tablet 1 EACH PO (19:51)
[2023-09-20] MEDS: quetiapine 100 mg Tablet 200 MG PO (19:51)
[2023-09-20] MEDS: montelukast sodium 10 mg Tablet PO (19:52)
[2023-09-20] MEDS: heparin 5,000 unit/mL INJ 1 mL 5000 UNIT SUBCUT (21:01)
[2023-09-20 21:39] LABS: Glucose Point of Care 136 mg/dL (70-110)
[2023-09-21] VITALS (10 sets, daily range): BP systolic 96–121; BP diastolic 56–71; PULSE 65–77; RESP 16–19; TEMP 36.4–37.3; O2SAT 90–98
[2023-09-21] MEDS: venlafaxine ER (24HR) 75 mg Capsule PO (05:23)
[2023-09-21] MEDS: venlafaxine ER (24HR) 150 mg Capsule PO (05:23)
[2023-09-21 05:58] LABS: Basophils # 0.1 10^3/uL (0.0-0.1); Basophils % 0.9 %; Eosinophils # 0.4 10^3/uL (0.0-0.8); Eosinophils % 4.9 %; Hematocrit 28.4 % (37-53); Lymphocytes # 1.8 10^3/uL (0.8-4.8); Lymphocytes % 21.7 %; Mean Corpuscular Hemoglobin 29.2 pg (27-33); Monocytes # 1.1 10^3/uL (0.2-0.9); Monocytes % 12.9 %; Neutrophils # 4.69 10^3/uL (1.8-7.7); Neutrophils % 57.3 %; Nucleated Red Blood Cells % 0 %; Platelet Count 302 10^3/cmm (157-399); Red Blood Count 3.12 10^6/uL (3.85-5.65); Red Cell Distribution Width 12.8 % (12.1-15.1); White Blood Count 8.19 10^3/uL (3.29-11.43)
[2023-09-21 06:14] LABS: Anion Gap 14.1 (5-19); Blood Urea Nitrogen 22 mg/dL (8-23); Calcium 8.7 mg/dL (8.5-10.5); Carbon Dioxide 28 mmol/L (22-29); Chloride 96 mmol/L (98-107); Creatinine Clr Calc Pharmacy 66.2237; Glucose 137 mg/dL (65-115); Osmolality Calculated 283 mOsm/kg (285-295); Potassium 4.1 mmol/L (3.5-5.1); Sodium 134 mmol/L (136-145)
[2023-09-21 06:26] LABS: Glucose Point of Care 171 mg/dL (70-110)
[2023-09-21] MEDS: docusate sodium 100 mg Capsule PO ×2 (08:33→17:04)
[2023-09-21] MEDS: BuSPIRONE 10 mg Tablet 20 MG PO (08:33)
[2023-09-21] MEDS: TRAMadol 50 mg Tablet 100 MG PO ×2 (08:33→20:30)
[2023-09-21] MEDS: gabapentin 300 mg Capsule PO ×3 (08:33→20:30)
[2023-09-21] MEDS: ascorbic acid 500 mg Tablet PO (08:33)
[2023-09-21] MEDS: cholecalciferol (vitamin D3) 1,000 unit Tablet 500 UNIT PO (08:33)
[2023-09-21] MEDS: levothyroxine 75 mcg Tablet PO (08:33)
[2023-09-21] MEDS: omega-3 fatty acids 1,000 mg Capsule 1000 MG PO (08:33)
[2023-09-21] MEDS: pantoprazole DR 40 mg Tablet PO (08:34)
[2023-09-21] MEDS: magnesium oxide 400 mg tablet PO (08:34)
[2023-09-21] MEDS: cyclobenzaprine 10 mg Tablet PO ×2 (08:34→20:30)
[2023-09-21] MEDS: heparin 5,000 unit/mL INJ 1 mL 5000 UNIT SUBCUT ×2 (08:34→20:31)
[2023-09-21] MEDS: insulin lispro 100 unit/1 mL SUBCUT ×3 (08:34→17:04)
--- NOTE | 2023-09-21 09:09 | P.PN_ITS ---
Subjective 2 Subjective: Seen today. no acute events Vitals/I&O/Wt Last Vital Signs Temp 97.5 F L 09/21/23 07:49 Pulse 73 09/21/23 07:49 Resp 19 H 09/21/23 07:49 BP 96/62 09/21/23 07:49 Pulse Ox 94 09/21/23 07:49 O2 Del Method Room Air 09/21/23 07:49 O2 Flow Rate 2 09/17/23 03:02 09/20/23 09/21/23 09/21/23 22:59 06:59 14:59 Intake Total 240 / 960 Output Total 2800 / 2800 875 / 3675 Balance -2560 / -1840 -875 / -2715 Weight last 48 hrs Weight 113.534 kg Weight 112.122 kg Physical Exam 2 Const: COMMON NORMALS: no acute distress and patient oriented x3 HENMT: COMMON NORMALS: normocephalic HEAD & SCALP: normocephalic Eye: COMMON NORMALS: Equal, round and reactive pupils present and EOMs intact bilaterally PUPIL: Yes Equal, round and reactive pupils present Neck/C-Spine: COMMON NORMALS: full ROM and no lymphadenopathy Lymph: LYMPHATIC: no lymphadenopathy noted Resp: COMMON NORMALS: normal respiratory effort, No retractions, No use of accessory muscles and clear to auscultation bilaterally AUSCULTATION: clear to auscultation bilaterally Cardio: COMMON NORMALS: regular rate, regular rhythm, S1 normal heart sound present and S2 normal heart sound present RATE: regular rate RHYTHM: r egular rhythm HEART SOUNDS: S1 normal heart sound present and S2 normal heart sound present GI: COMMON NORMALS: Normal to inspection, nondistended, normoactive bowel sounds present and non-tender : COMMON NORMALS: Yes no CVA tenderness BLADDER/KIDNEY EXAM: Yes no CVA tenderness Back/Pelvis: COMMON NORMALS: no CVA tenderness OTHER: Surgical site looks clean and dry Extremity: COMMON NORMALS: no calf tenderness and no pedal edema Neuro: COMMON NORMALS: patient oriented x3, CN's II-XII intact bilaterally, moves all extremities and no focal motor deficits Psych: COMMON NORMALS: mental status grossly normal Urinary Catheter Management: Purdy: Cath Placed During This Visit: yes, but has since been removed by the nurse Reason for Continuing Indwelling Catheter: Acute Urinary Retention or Obstruction Urinary Catheter Date of Insertion: 09/16/23 Urinary Catheter Time of Insertion: 16:00 Date Urinary Catheter Removed: 09/16/23 Time Urinary Catheter Discontinued: 10:00 Data 09/21/23 05:26 09/21/23 05:26 A&P Assessment and plan (1) Fever: (2) Status post lumbar spinal fusion: (3) Postoperative anemia: Plan Status post lumbar spinal fusion ? Postop day 5 ? Estimated blood loss 1300 cc ? Status post 1 unit PRBC, ? Hemoglobin 9.80. Hemoglobin stable at this time Postoperative anemia?resolved ? Estimated blood loss 1300 cc, status post 1 unit PRBC currently receiving his second unit of blood ? Ferritin, iron - HB STABLE 9.8 09/19 Postoperative fevers, hypotension ? CBC, CMP, UA, chest x-ray, lactic acid, blood cultures, TSH, cortisol ? Monitor hemodynamics closely ? Will consider midodrine ? Hold blood pressure medications ? Hold Toradol ? Continue IV fluids ? Blood pressure stable. #Left thigh pain ? No fluctuance or tenderness on physical exam ? Check venous Dopplers bilateral lower extremities Full code Purdy catheter placed ? SCDs for DVT prophylaxis Check orthostatic vitals. - negative Continue to monitor blood pressure. BP and HB stable so far. Continue purdy since pt was retaining. pt awaiting insurance authorization Attestations 2 Medical Necessity Statement*: awaiting insurance authorization. defer to primary team Diagnoses Fever R50.9 Status post lumbar spinal fusion Z98.1 Postoperative anemia D64.9
--- NOTE | 2023-09-21 10:05 | P.PN_ITS ---
Subjective 2 Subjective: Patient seen and examined this morning. No issues overnight. Awaiting rehab placement. Vitals/I&O/Wt Last Vital Signs Temp 99.1 F 09/21/23 20:00 Pulse 77 09/21/23 20:00 Resp 17 09/21/23 20:00 BP 108/61 09/21/23 20:00 Pulse Ox 95 09/21/23 20:00 O2 Del Method Room Air 09/21/23 20:00 O2 Flow Rate 2 09/17/23 03:02 09/21/23 09/21/23 09/21/23 06:59 14:59 22:59 Intake Total 600 / 600 360 / 960 Output Total 875 / 3675 1300 / 1300 Balance -875 / -2715 600 / 600 -940 / -340 Weight last 48 hrs Weight 250 lb 4.8 oz Weight 247 lb 3 oz Physical Exam 2 Narrative: Dressing to the lumbar spine is clean dry and intact no signs of saturation patient distally to the extremities is able to wiggle the toes plantarflex and dorsiflex ankle as well as flex and extend at the knee there is endorses he has sensations intact to light touch of the feet bilaterally. Distal pulses are palpable. Urinary Catheter Management: [place]: Cath Placed During This Visit: yes, but has since been removed by the nurse Reason for Continuing Indwelling Catheter: Acute Urinary Retention or Obstruction Urinary Catheter Date of Insertion: 09/16/23 Urinary Catheter Time of Insertion: 16:00 Date Urinary Catheter Removed: 09/16/23 Time Urinary Catheter Discontinued: 10:00 Data 09/21/23 05:26 09/21/23 05:26 Micro: Microbiology 09/16/23 21:00 Blood Culture - Final Blood NO GROWTH AFTER 5 DAYS 09/16/23 21:11 Blood Culture - Final Blood NO GROWTH AFTER 5 DAYS A&P Assessment and plan (1) Status post lumbar spinal fusion: Patient is postop day 5 lumbar fusion. At this point okay to discharge to [facility]. Up with physical therapy Awaiting rehab placement Attestations 2 Medical Necessity Statement*: Awaiting [facility] placement Coding Level of Care Code Acute Code for Chg Fwd Diagnoses Status post lumbar spinal fusion Z98.1
[2023-09-21 10:58] LABS: Glucose Point of Care 411 mg/dL (70-110)
[2023-09-21] MEDS: oxyCODONE 5 mg IR Tab/Cap PO ×2 (11:41→17:04)
[2023-09-21 16:58] LABS: Glucose Point of Care 313 mg/dL (70-110)
[2023-09-21] MEDS: ziprasidone hcl 40 mg Capsule 80 MG PO (17:04)
[2023-09-21] MEDS: quetiapine 100 mg Tablet 200 MG PO (20:30)
[2023-09-21] MEDS: montelukast sodium 10 mg Tablet PO (20:30)
[2023-09-21] MEDS: calcium carb-vit d 500mg-200unit 1 Tablet 1 EACH PO (20:30)
[2023-09-21 21:04] LABS: Glucose Point of Care 150 mg/dL (70-110)
[2023-09-22] VITALS (9 sets, daily range): BP systolic 89–133; BP diastolic 56–74; PULSE 65–76; RESP 16–18; TEMP 36.8–36.9; O2SAT 92–97
[2023-09-22 03:21] LABS: Basophils # 0.1 10^3/uL (0.0-0.1); Eosinophils # 0.4 10^3/uL (0.0-0.8); Eosinophils % 4.5 %; Hematocrit 29.6 % (37-53); Lymphocytes # 2.2 10^3/uL (0.8-4.8); Lymphocytes % 24.4 %; Mean Corpuscular HGB Conc 31.4 g/dL (30-55); Mean Corpuscular Hemoglobin 28.6 pg (27-33); Mean Corpuscular Volume 91.1 fl (82-101); Mean Platelet Volume 10.5 fL (7.4-10.4); Monocytes # 1.2 10^3/uL (0.2-0.9); Monocytes % 12.8 %; Neutrophils # 4.86 10^3/uL (1.8-7.7); Nucleated Red Blood Cells % 0 %; Platelet Count 345 10^3/cmm (157-399); Red Blood Count 3.25 10^6/uL (3.85-5.65); Red Cell Distribution Width 12.7 % (12.1-15.1); White Blood Count 9.15 10^3/uL (3.29-11.43)
[2023-09-22 03:47] LABS: Anion Gap 14.1 (5-19); Blood Urea Nitrogen 25 mg/dL (8-23); Calcium 8.6 mg/dL (8.5-10.5); Carbon Dioxide 29 mmol/L (22-29); Chloride 97 mmol/L (98-107); Creatinine Clr Calc Pharmacy 71.3179; Glomerular Filtration Rate 55.6 mL/min (90-130); Glucose 112 mg/dL (65-115); Osmolality Calculated 287 mOsm/kg (285-295); Potassium 4.1 mmol/L (3.5-5.1); Sodium 136 mmol/L (136-145)
[2023-09-22] MEDS: cyclobenzaprine 10 mg Tablet PO ×2 (05:56→20:10)
[2023-09-22] MEDS: oxyCODONE 5 mg IR Tab/Cap PO (05:56)
[2023-09-22] MEDS: venlafaxine ER (24HR) 150 mg Capsule PO (05:57)
[2023-09-22] MEDS: venlafaxine ER (24HR) 75 mg Capsule PO (05:57)
[2023-09-22 06:32] LABS: Glucose Point of Care 141 mg/dL (70-110)
[2023-09-22] MEDS: magnesium oxide 400 mg tablet PO (09:11)
[2023-09-22] MEDS: ascorbic acid 500 mg Tablet PO (09:11)
[2023-09-22] MEDS: cholecalciferol (vitamin D3) 1,000 unit Tablet 500 UNIT PO (09:11)
[2023-09-22] MEDS: BuSPIRONE 10 mg Tablet 20 MG PO (09:11)
[2023-09-22] MEDS: omega-3 fatty acids 1,000 mg Capsule 1000 MG PO (09:11)
[2023-09-22] MEDS: pantoprazole DR 40 mg Tablet PO (09:11)
[2023-09-22] MEDS: heparin 5,000 unit/mL INJ 1 mL 5000 UNIT SUBCUT ×2 (09:12→20:09)
[2023-09-22] MEDS: insulin lispro 100 unit/1 mL SUBCUT ×2 (09:12→12:19)
[2023-09-22] MEDS: docusate sodium 100 mg Capsule PO ×2 (09:13→17:43)
[2023-09-22] MEDS: levothyroxine 75 mcg Tablet PO (09:16)
[2023-09-22] MEDS: gabapentin 300 mg Capsule PO ×3 (09:23→20:09)
[2023-09-22 10:48] LABS: Glucose Point of Care 569 mg/dL (70-110)
[2023-09-22 10:48] LABS: Glucose Point of Care 177 mg/dL (70-110)
--- NOTE | 2023-09-22 11:59 | P.PN_ITS ---
Subjective 2 Subjective: Patient states he is constipated. Vitals/I&O/Wt Last Vital Signs Temp 98.5 F 09/22/23 07:50 Pulse 72 09/22/23 07:50 Resp 16 09/22/23 07:50 BP 133/74 09/22/23 07:50 Pulse Ox 93 09/22/23 07:50 O2 Del Method Room Air 09/22/23 07:50 O2 Flow Rate 2 09/17/23 03:02 09/21/23 09/22/23 09/22/23 22:59 06:59 14:59 Intake Total 360 / 960 360 / 1320 240 / 240 Output Total 1300 / 1300 800 / 2100 Balance -940 / -340 -440 / -780 240 / 240 Weight last 48 hrs Weight 112.576 kg Weight 113.534 kg Physical Exam 2 Const: COMMON NORMALS: no acute distress and patient oriented x3 HENMT: COMMON NORMALS: normocephalic HEAD & SCALP: normocephalic Eye: COMMON NORMALS: Equal, round and reactive pupils present and EOMs intact bilaterally PUPIL: Yes Equal, round and reactive pupils present Neck/C-Spine: COMMON NORMALS: full ROM and no lymphadenopathy Lymph: LYMPHATIC: no lymphadenopathy noted Resp: COMMON NORMALS: normal respiratory effort, No retractions, No use of accessory muscles and clear to auscultation bilaterally AUSCULTATION: clear to auscultation bilaterally Cardio: COMMON NORMALS: regular rate, regular rhythm, S1 normal heart sound present and S2 normal heart sound present RATE: regular rate RHYTHM: r egular rhythm HEART SOUNDS: S1 normal heart sound present and S2 normal heart sound present GI: COMMON NORMALS: Normal to inspection, nondistended, normoactive bowel sounds present and non-tender : COMMON NORMALS: Yes no CVA tenderness BLADDER/KIDNEY EXAM: Yes no CVA tenderness Back/Pelvis: COMMON NORMALS: no CVA tenderness OTHER: Surgical site looks clean and dry Extremity: COMMON NORMALS: no calf tenderness and no pedal edema Neuro: COMMON NORMALS: patient oriented x3, CN's II-XII intact bilaterally, moves all extremities and no focal motor deficits Psych: COMMON NORMALS: mental status grossly normal Urinary Catheter Management: Purdy: Cath Placed During This Visit: yes, but has since been removed by the nurse Reason for Continuing Indwelling Catheter: Acute Urinary Retention or Obstruction Urinary Catheter Date of Insertion: 09/16/23 Urinary Catheter Time of Insertion: 16:00 Date Urinary Catheter Removed: 09/16/23 Time Urinary Catheter Discontinued: 10:00 Data 09/22/23 02:22 09/22/23 02:22 Micro: Microbiology 09/16/23 21:00 Blood Culture - Final Blood NO GROWTH AFTER 5 DAYS 09/16/23 21:11 Blood Culture - Final Blood NO GROWTH AFTER 5 DAYS A&P Assessment and plan (1) Fever: (2) Status post lumbar spinal fusion: (3) Postoperative anemia: Plan Status post lumbar spinal fusion ? Postop day 5 ? Estimated blood loss 1300 cc ? Status post 1 unit PRBC, ? Hemoglobin 9.80. Hemoglobin stable at this time Postoperative anemia?resolved ? Estimated blood loss 1300 cc, status post 1 unit PRBC currently receiving his second unit of blood ? Ferritin, iron - HB STABLE 9.8 09/19 Postoperative fevers, hypotension ? CBC, CMP, UA, chest x-ray, lactic acid, blood cultures, TSH, cortisol ? Monitor hemodynamics closely ? Will consider midodrine ? Hold blood pressure medications ? Hold Toradol ? Continue IV fluids ? Blood pressure stable. #Left thigh pain ? No fluctuance or tenderness on physical exam ? Check venous Dopplers bilateral lower extremities Full code Purdy catheter placed ? SCDs for DVT prophylaxis Check orthostatic vitals. - negative Continue to monitor blood pressure. BP and HB stable so far. Constipation ? Order MiraLAX daily Continue purdy since pt was retaining. pt awaiting insurance authorization Attestations 2 Medical Necessity Statement*: Awaiting [facility] placement Diagnoses Fever R50.9 Status post lumbar spinal fusion Z98.1 Postoperative anemia D64.9
[2023-09-22] MEDS: magnesium hydroxide 30 mL UDC PO (12:18)
--- NOTE | 2023-09-22 12:22 | PC.SOCIAL ---
IMM Updated pg 2 of IMM updated and reviewed w/ patient. Copy provided and copy dated, initialed and placed in chart.
[2023-09-22] MEDS: polyethylene glycol 3350 Pkt 17 gm PO (12:48)
--- NOTE | 2023-09-22 16:23 | PC.NURSE ---
Bandage on surgical wound located on patients back was changed 09/22/23 by Katerina Pruitt
[2023-09-22 16:53] LABS: Glucose Point of Care 120 mg/dL (70-110)
[2023-09-22] MEDS: ziprasidone hcl 40 mg Capsule 80 MG PO (17:43)
[2023-09-22] MEDS: calcium carb-vit d 500mg-200unit 1 Tablet 1 EACH PO (20:09)
[2023-09-22] MEDS: quetiapine 100 mg Tablet 200 MG PO (20:09)
[2023-09-22] MEDS: montelukast sodium 10 mg Tablet PO (20:09)
[2023-09-22] MEDS: TRAMadol 50 mg Tablet 100 MG PO (20:10)
[2023-09-22 21:44] LABS: Glucose Point of Care 138 mg/dL (70-110)
[2023-09-23] VITALS (12 sets, daily range): BP systolic 100–119; BP diastolic 57–70; PULSE 65–78; RESP 16–18; TEMP 36.4–37.2; O2SAT 92–98
[2023-09-23] MEDS: venlafaxine ER (24HR) 75 mg Capsule PO (05:30)
[2023-09-23] MEDS: venlafaxine ER (24HR) 150 mg Capsule PO (05:30)
[2023-09-23 06:20] LABS: Glucose Point of Care 126 mg/dL (70-110)
[2023-09-23] MEDS: docusate sodium 100 mg Capsule PO ×2 (08:06→17:34)
[2023-09-23] MEDS: oxyCODONE 5 mg IR Tab/Cap PO ×3 (08:06→23:51)
[2023-09-23] MEDS: magnesium oxide 400 mg tablet PO (08:06)
[2023-09-23] MEDS: levothyroxine 75 mcg Tablet PO (08:06)
[2023-09-23] MEDS: ascorbic acid 500 mg Tablet PO (08:06)
[2023-09-23] MEDS: pantoprazole DR 40 mg Tablet PO (08:06)
[2023-09-23] MEDS: magnesium hydroxide 30 mL UDC PO (08:06)
[2023-09-23] MEDS: omega-3 fatty acids 1,000 mg Capsule 1000 MG PO (08:06)
[2023-09-23] MEDS: BuSPIRONE 10 mg Tablet 20 MG PO (08:06)
[2023-09-23] MEDS: polyethylene glycol 3350 Pkt 17 gm PO (08:07)
[2023-09-23] MEDS: cholecalciferol (vitamin D3) 1,000 unit Tablet 500 UNIT PO (08:07)
[2023-09-23] MEDS: cyclobenzaprine 10 mg Tablet PO ×2 (08:07→23:50)
[2023-09-23] MEDS: heparin 5,000 unit/mL INJ 1 mL 5000 UNIT SUBCUT ×2 (08:07→21:19)
[2023-09-23] MEDS: gabapentin 300 mg Capsule PO ×3 (08:08→21:19)
--- NOTE | 2023-09-23 08:21 | PM.PN ---
Subjective Subjective: Patient stated he will will be discharged detention tomorrow. Complaining of left leg pain Vitals/I&O/Wt Last Vital Signs Temp 98.2 F 09/23/23 07:44 Pulse 71 09/23/23 07:44 Resp 16 09/23/23 08:06 BP 100/62 09/23/23 07:44 Pulse Ox 98 09/23/23 07:44 O2 Del Method Room Air 09/23/23 07:44 O2 Flow Rate 2 09/17/23 03:02 09/22/23 09/23/23 09/23/23 22:59 06:59 14:59 Intake Total 360 / 720 200 / 920 Output Total 3000 / 3000 850 / 3850 Balance -2640 / -2280 -650 / -2930 Weight last 48 hrs Weight 245 lb 4 oz Weight 248 lb 3 oz Physical Exam Narrative: Patient sitting up in chair. Urinary Catheter Management: [place]: Cath Placed During This Visit: yes, but has since been removed by the nurse Reason for Continuing Indwelling Catheter: Other Urinary Catheter Date of Insertion: 09/16/23 Urinary Catheter Time of Insertion: 16:00 Date Urinary Catheter Removed: 09/16/23 Time Urinary Catheter Discontinued: 10:00 Data 09/22/23 02:22 09/22/23 02:22 A&P Assessment and plan (1) Status post lumbar spinal fusion: Awaiting placement detention Attestations Medical Necessity Statement*: Awaiting placement in detention. Okay to discharge Coding Level of Care Code Acute Code for Chg Fwd Diagnoses Status post lumbar spinal fusion Z98.1
[2023-09-23 10:47] LABS: Glucose Point of Care 173 mg/dL (70-110)
[2023-09-23] MEDS: insulin lispro 100 unit/1 mL SUBCUT ×2 (11:32→17:34)
--- NOTE | 2023-09-23 12:43 | P.PN_ITS ---
Subjective 2 Subjective: Seen this morning. Says he is still constipated however would not like an enema at this time and would like to wait with oral laxatives. Vitals/I&O/Wt Last Vital Signs Temp 98.9 F 09/23/23 11:34 Pulse 74 09/23/23 11:34 Resp 18 09/23/23 11:34 BP 105/63 09/23/23 11:34 Pulse Ox 97 09/23/23 11:34 O2 Del Method Room Air 09/23/23 11:34 O2 Flow Rate 2 09/17/23 03:02 09/22/23 09/23/23 09/23/23 22:59 06:59 14:59 Intake Total 360 / 720 200 / 920 240 / 240 Output Total 3000 / 3000 850 / 3850 Balance -2640 / -2280 -650 / -2930 240 / 240 Weight last 48 hrs Weight 111.244 kg Weight 112.576 kg Physical Exam 2 Const: COMMON NORMALS: no acute distress and patient oriented x3 HENMT: COMMON NORMALS: normocephalic HEAD & SCALP: normocephalic Eye: COMMON NORMALS: Equal, round and reactive pupils present and EOMs intact bilaterally PUPIL: Yes Equal, round and reactive pupils present Neck/C-Spine: COMMON NORMALS: full ROM and no lymphadenopathy Lymph: LYMPHATIC: no lymphadenopathy noted Resp: COMMON NORMALS: normal respiratory effort, No retractions, No use of accessory muscles and clear to auscultation bilaterally AUSCULTATION: clear to auscultation bilaterally Cardio: COMMON NORMALS: regular rate, regular rhythm, S1 normal heart sound present and S2 normal heart sound present RATE: regular rate RHYTHM: r egular rhythm HEART SOUNDS: S1 normal heart sound present and S2 normal heart sound present GI: COMMON NORMALS: Normal to inspection, nondistended, normoactive bowel sounds present and non-tender : COMMON NORMALS: Yes no CVA tenderness BLADDER/KIDNEY EXAM: Yes no CVA tenderness Back/Pelvis: COMMON NORMALS: no CVA tenderness OTHER: Surgical site looks clean and dry Extremity: COMMON NORMALS: no calf tenderness and no pedal edema Neuro: COMMON NORMALS: patient oriented x3, CN's II-XII intact bilaterally, moves all extremities and no focal motor deficits Psych: COMMON NORMALS: mental status grossly normal Urinary Catheter Management: Purdy: Cath Placed During This Visit: yes, but has since been removed by the nurse Reason for Continuing Indwelling Catheter: Other Urinary Catheter Date of Insertion: 09/16/23 Urinary Catheter Time of Insertion: 18:00 Date Urinary Catheter Removed: 09/16/23 Time Urinary Catheter Discontinued: 10:00 Data 09/22/23 02:22 09/22/23 02:22 A&P Assessment and plan (1) Fever: (2) Status post lumbar spinal fusion: (3) Postoperative anemia: Plan Status post lumbar spinal fusion ? Postop day 5 ? Estimated blood loss 1300 cc ? Status post 1 unit PRBC, ? Hemoglobin 9.80. Hemoglobin stable at this time Postoperative anemia?resolved ? Estimated blood loss 1300 cc, status post 1 unit PRBC currently receiving his second unit of blood ? Ferritin, iron - HB STABLE 9.8 09/19 Postoperative fevers, hypotension ? CBC, CMP, UA, chest x-ray, lactic acid, blood cultures, TSH, cortisol ? Monitor hemodynamics closely ? Will consider midodrine ? Hold blood pressure medications ? Hold Toradol ? Continue IV fluids ? Blood pressure stable. #Left thigh pain ? No fluctuance or tenderness on physical exam ? Check venous Dopplers bilateral lower extremities Full code Purdy catheter placed ? SCDs for DVT prophylaxis Check orthostatic vitals. - negative Continue to monitor blood pressure. BP and HB stable so far. Constipation ? Order MiraLAX daily - docusate senna 100 bid - lactulose 20 g x1 Continue purdy since pt was retaining. pt awaiting insurance authorization Attestations 2 Medical Necessity Statement*: Awaiting senior living placement Diagnoses Fever R50.9 Status post lumbar spinal fusion Z98.1 Postoperative anemia D64.9
[2023-09-23] MEDS: lactulose oral liq 20 gm/30 mL UDC PO (12:58)
[2023-09-23 17:13] LABS: Glucose Point of Care 193 mg/dL (70-110)
[2023-09-23] MEDS: ziprasidone hcl 40 mg Capsule 80 MG PO (17:34)
[2023-09-23] MEDS: quetiapine 100 mg Tablet 200 MG PO (21:18)
[2023-09-23] MEDS: acetaminophen 325 mg Tablet 650 MG PO (21:18)
[2023-09-23] MEDS: calcium carb-vit d 500mg-200unit 1 Tablet 1 EACH PO (21:19)
[2023-09-23] MEDS: montelukast sodium 10 mg Tablet PO (21:19)
[2023-09-24] VITALS (11 sets, daily range): BP systolic 93–149; BP diastolic 53–76; PULSE 64–78; RESP 16–20; TEMP 36.3–37.3; O2SAT 93–100
[2023-09-24 03:47] LABS: Glucose Point of Care 161 mg/dL (70-110)
[2023-09-24] MEDS: venlafaxine ER (24HR) 150 mg Capsule PO (06:04)
[2023-09-24] MEDS: oxyCODONE 5 mg IR Tab/Cap PO ×2 (06:04→15:28)
[2023-09-24] MEDS: venlafaxine ER (24HR) 75 mg Capsule PO (06:04)
[2023-09-24 06:43] LABS: Glucose Point of Care 125 mg/dL (70-110)
[2023-09-24] MEDS: magnesium hydroxide 30 mL UDC PO (09:02)
[2023-09-24] MEDS: heparin 5,000 unit/mL INJ 1 mL 5000 UNIT SUBCUT ×2 (09:03→21:34)
[2023-09-24] MEDS: docusate sodium 100 mg Capsule PO ×2 (09:03→16:59)
[2023-09-24] MEDS: cholecalciferol (vitamin D3) 1,000 unit Tablet 500 UNIT PO (09:03)
[2023-09-24] MEDS: pantoprazole DR 40 mg Tablet PO (09:03)
[2023-09-24] MEDS: BuSPIRONE 10 mg Tablet 20 MG PO (09:03)
[2023-09-24] MEDS: omega-3 fatty acids 1,000 mg Capsule 1000 MG PO (09:03)
[2023-09-24] MEDS: cyclobenzaprine 10 mg Tablet PO ×2 (09:03→21:37)
[2023-09-24] MEDS: ascorbic acid 500 mg Tablet PO (09:03)
[2023-09-24] MEDS: polyethylene glycol 3350 Pkt 17 gm PO (09:03)
[2023-09-24] MEDS: gabapentin 300 mg Capsule PO ×3 (09:03→21:36)
[2023-09-24] MEDS: levothyroxine 75 mcg Tablet PO (09:03)
[2023-09-24] MEDS: magnesium oxide 400 mg tablet PO (09:04)
--- NOTE | 2023-09-24 09:36 | P.PN_ITS ---
Subjective 2 Subjective: Patient is feeling much better today no pain today. Patient ambulatory 250 feet today. Patient stated that he ambulated 500 feet yesterday Vitals/I&O/Wt Last Vital Signs Temp 98.0 F 09/24/23 07:11 Pulse 65 09/24/23 07:11 Resp 18 09/24/23 07:11 BP 93/53 09/24/23 07:11 Pulse Ox 93 09/24/23 07:11 O2 Del Method Room Air 09/24/23 07:11 O2 Flow Rate 2 09/17/23 03:02 09/23/23 09/24/23 09/24/23 22:59 06:59 14:59 Intake Total 200 / 680 200 / 880 600 / 600 Output Total 700 / 700 300 / 1000 950 / 950 Balance -500 / -20 -100 / -120 -350 / -350 Weight last 48 hrs Weight 250 lb 1.6 oz Weight 245 lb 4 oz Physical Exam 2 Narrative: Dressing was changed wound clean dry and intact. Sitting in chair comfortably today. Urinary Catheter Management: [place]: Cath Placed During This Visit: yes, but has since been removed by the nurse Reason for Continuing Indwelling Catheter: Acute Urinary Retention or Obstruction Urinary Catheter Date of Insertion: 09/16/23 Urinary Catheter Time of Insertion: 18:00 Date Urinary Catheter Removed: 09/16/23 Time Urinary Catheter Discontinued: 10:00 Data 09/22/23 02:22 09/22/23 02:22 A&P Assessment and plan (1) Status post lumbar spinal fusion: Status post lumbar fusion week and a half out from surgery Discharge planning Attestations 2 Medical Necessity Statement*: Okay to discharge awaiting placement Coding Level of Care Code Acute Code for Chg Fwd Diagnoses Status post lumbar spinal fusion Z98.1
[2023-09-24 11:31] LABS: Glucose Point of Care 116 mg/dL (70-110)
--- NOTE | 2023-09-24 12:13 | PC.SOCIAL ---
IMM Update pg 2 of IMM updated and reviewed w/ patient. Copy provided and copy dated, initialed and placed in chart.
--- NOTE | 2023-09-24 13:11 | P.PN_ITS ---
Subjective 2 Subjective: Seen this morning. Requesting an enema at this time. Vitals/I&O/Wt Last Vital Signs Temp 98.5 F 09/24/23 12:00 Pulse 67 09/24/23 12:00 Resp 18 09/24/23 12:00 BP 149/71 09/24/23 12:00 Pulse Ox 100 09/24/23 12:00 O2 Del Method Room Air 09/24/23 12:00 O2 Flow Rate 2 09/17/23 03:02 09/23/23 09/24/23 09/24/23 22:59 06:59 14:59 Intake Total 200 / 680 200 / 880 600 / 600 Output Total 700 / 700 300 / 1000 950 / 950 Balance -500 / -20 -100 / -120 -350 / -350 Weight last 48 hrs Weight 113.443 kg Weight 111.244 kg Physical Exam 2 Const: COMMON NORMALS: no acute distress Eye: COMMON NORMALS: Equal, round and reactive pupils present and EOMs intact bilaterally PUPIL: Yes Equal, round and reactive pupils present Neck/C-Spine: COMMON NORMALS: full ROM and no lymphadenopathy Resp: COMMON NORMALS: normal respiratory effort, No retractions, No use of accessory muscles and clear to auscultation bilaterally AUSCULTATION: clear to auscultation bilaterally Cardio: COMMON NORMALS: regular rate, regular rhythm, S1 normal heart sound present and S2 normal heart sound present RATE: regular rate RHYTHM: r egular rhythm HEART SOUNDS: S1 normal heart sound present and S2 normal heart sound present GI: COMMON NORMALS: Normal to inspection, nondistended, normoactive bowel sounds present and non-tender Extremity: COMMON NORMALS: no calf tenderness and no pedal edema Psych: COMMON NORMALS: mental status grossly normal Urinary Catheter Management: Purdy: Cath Placed During This Visit: yes, but has since been removed by the nurse Reason for Continuing Indwelling Catheter: Acute Urinary Retention or Obstruction Urinary Catheter Date of Insertion: 09/16/23 Urinary Catheter Time of Insertion: 18:00 Date Urinary Catheter Removed: 09/16/23 Time Urinary Catheter Discontinued: 10:00 Data 09/22/23 02:22 09/22/23 02:22 A&P Assessment and plan (1) Fever: (2) Status post lumbar spinal fusion: (3) Postoperative anemia: Plan Status post lumbar spinal fusion ? Postop day 5 ? Estimated blood loss 1300 cc ? Status post 1 unit PRBC, ? Hemoglobin 9.80. Hemoglobin stable at this time Postoperative anemia?resolved ? Estimated blood loss 1300 cc, status post 1 unit PRBC currently receiving his second unit of blood ? Ferritin, iron - HB STABLE 9.8 09/19 Postoperative fevers, hypotension ? CBC, CMP, UA, chest x-ray, lactic acid, blood cultures, TSH, cortisol ? Monitor hemodynamics closely ? Will consider midodrine ? Hold blood pressure medications ? Hold Toradol ? Continue IV fluids ? Blood pressure stable. #Left thigh pain ? No fluctuance or tenderness on physical exam ? Check venous Dopplers bilateral lower extremities Full code Purdy catheter placed ? SCDs for DVT prophylaxis Check orthostatic vitals. - negative Continue to monitor blood pressure. BP and HB stable so far. Constipation ? Order MiraLAX daily - docusate senna 100 bid - lactulose 20 g x1 Continue purdy since pt was retaining. pt awaiting insurance authorization Attestations 2 Medical Necessity Statement*: Okay to discharge awaiting placement Diagnoses Fever R50.9 Status post lumbar spinal fusion Z98.1 Postoperative anemia D64.9
[2023-09-24 16:38] LABS: Glucose Point of Care 167 mg/dL (70-110)
[2023-09-24] MEDS: insulin lispro 100 unit/1 mL SUBCUT (16:59)
[2023-09-24] MEDS: ziprasidone hcl 40 mg Capsule 80 MG PO (16:59)
[2023-09-24 20:42] LABS: Glucose Point of Care 215 mg/dL (70-110)
[2023-09-24] MEDS: montelukast sodium 10 mg Tablet PO (21:36)
[2023-09-24] MEDS: calcium carb-vit d 500mg-200unit 1 Tablet 1 EACH PO (21:36)
[2023-09-24] MEDS: quetiapine 100 mg Tablet 200 MG PO (21:37)
[2023-09-25] VITALS (8 sets, daily range): BP systolic 90–96; BP diastolic 53–61; PULSE 64–87; RESP 15–18; TEMP 36.4–36.6; O2SAT 92–97
[2023-09-25] MEDS: venlafaxine ER (24HR) 150 mg Capsule PO (06:11)
[2023-09-25] MEDS: venlafaxine ER (24HR) 75 mg Capsule PO (06:11)
[2023-09-25 06:43] LABS: Glucose Point of Care 123 mg/dL (70-110)
[2023-09-25] MEDS: heparin 5,000 unit/mL INJ 1 mL 5000 UNIT SUBCUT (08:57)
[2023-09-25] MEDS: levothyroxine 75 mcg Tablet PO (08:58)
[2023-09-25] MEDS: BuSPIRONE 10 mg Tablet 20 MG PO (08:58)
[2023-09-25] MEDS: omega-3 fatty acids 1,000 mg Capsule 1000 MG PO (08:58)
[2023-09-25] MEDS: gabapentin 300 mg Capsule PO ×2 (08:58→16:00)
[2023-09-25] MEDS: cholecalciferol (vitamin D3) 1,000 unit Tablet 500 UNIT PO (08:58)
[2023-09-25] MEDS: pantoprazole DR 40 mg Tablet PO (08:58)
[2023-09-25] MEDS: docusate sodium 100 mg Capsule PO (08:58)
[2023-09-25] MEDS: ascorbic acid 500 mg Tablet PO (08:58)
[2023-09-25] MEDS: magnesium oxide 400 mg tablet PO (08:58)
[2023-09-25] MEDS: polyethylene glycol 3350 Pkt 17 gm PO (08:59)
--- NOTE | 2023-09-25 09:22 | P.PN_ITS ---
Subjective 2 Subjective: Patient is ready for discharge Vitals/I&O/Wt Last Vital Signs Temp 97.7 F 09/25/23 07:52 Pulse 67 09/25/23 07:52 Resp 15 09/25/23 07:52 BP 93/56 09/25/23 07:52 Pulse Ox 92 09/25/23 07:52 O2 Del Method Room Air 09/25/23 07:52 O2 Flow Rate 2 09/17/23 03:02 09/24/23 09/25/23 09/25/23 22:59 06:59 14:59 Intake Total 890 / 2090 480 / 2570 Output Total 800 / 2500 1800 / 4300 Balance 90 / -410 -1320 / -1730 Weight last 48 hrs Weight 249 lb 7 oz Weight 250 lb 1.6 oz Physical Exam 2 Narrative: Laying in bed ready for discharge Urinary Catheter Management: [place]: Cath Placed During This Visit: yes, but has since been removed by the nurse Reason for Continuing Indwelling Catheter: Acute Urinary Retention or Obstruction Urinary Catheter Date of Insertion: 09/16/23 Urinary Catheter Time of Insertion: 18:00 Date Urinary Catheter Removed: 09/16/23 Time Urinary Catheter Discontinued: 10:00 Data 09/22/23 02:22 09/22/23 02:22 A&P Assessment and plan (1) Status post lumbar spinal fusion: Patient is ready for discharge Attestations 2 Medical Necessity Statement*: Awaiting discharge Coding Level of Care Code Acute Code for Chg Fwd Diagnoses Status post lumbar spinal fusion Z98.1
[2023-09-25] MEDS: insulin lispro 100 unit/1 mL SUBCUT (11:58)
[2023-09-25] MEDS: lactulose oral liq 20 gm/30 mL UDC PO (11:58)
--- NOTE | 2023-09-25 12:53 | P.PN_ITS ---
Subjective 2 Subjective: Seen this morning. Requesting an enema at this time. Vitals/I&O/Wt Last Vital Signs Temp 97.7 F 09/25/23 11:47 Pulse 87 09/25/23 11:47 Resp 16 09/25/23 11:47 BP 95/58 09/25/23 11:47 Pulse Ox 97 09/25/23 11:47 O2 Del Method Room Air 09/25/23 11:47 O2 Flow Rate 2 09/17/23 03:02 09/24/23 09/25/23 09/25/23 22:59 06:59 14:59 Intake Total 890 / 2090 480 / 2570 240 / 240 Output Total 800 / 2500 1800 / 4300 Balance 90 / -410 -1320 / -1730 240 / 240 Weight last 48 hrs Weight 113.143 kg Weight 113.443 kg Physical Exam 2 Const: COMMON NORMALS: no acute distress Eye: COMMON NORMALS: Equal, round and reactive pupils present and EOMs intact bilaterally PUPIL: Yes Equal, round and reactive pupils present Neck/C-Spine: COMMON NORMALS: full ROM and no lymphadenopathy Resp: COMMON NORMALS: normal respiratory effort, No retractions, No use of accessory muscles and clear to auscultation bilaterally AUSCULTATION: clear to auscultation bilaterally Cardio: COMMON NORMALS: regular rate, regular rhythm, S1 normal heart sound present and S2 normal heart sound present RATE: regular rate RHYTHM: r egular rhythm HEART SOUNDS: S1 normal heart sound present and S2 normal heart sound present GI: COMMON NORMALS: Normal to inspection, nondistended, normoactive bowel sounds present and non-tender Extremity: COMMON NORMALS: no calf tenderness and no pedal edema Psych: COMMON NORMALS: mental status grossly normal Urinary Catheter Management: Purdy: Cath Placed During This Visit: yes, but has since been removed by the nurse Reason for Continuing Indwelling Catheter: Acute Urinary Retention or Obstruction Urinary Catheter Date of Insertion: 09/16/23 Urinary Catheter Time of Insertion: 18:00 Date Urinary Catheter Removed: 09/16/23 Time Urinary Catheter Discontinued: 10:00 Data 09/22/23 02:22 09/22/23 02:22 A&P Assessment and plan (1) Fever: (2) Status post lumbar spinal fusion: (3) Postoperative anemia: Plan Status post lumbar spinal fusion ? Postop day 5 ? Estimated blood loss 1300 cc ? Status post 1 unit PRBC, ? Hemoglobin 9.80. Hemoglobin stable at this time Postoperative anemia?resolved ? Estimated blood loss 1300 cc, status post 1 unit PRBC currently receiving his second unit of blood ? Ferritin, iron - HB STABLE 9.8 09/19 Postoperative fevers, hypotension ? CBC, CMP, UA, chest x-ray, lactic acid, blood cultures, TSH, cortisol ? Monitor hemodynamics closely ? Will consider midodrine ? Hold blood pressure medications ? Hold Toradol ? Continue IV fluids ? Blood pressure stable. #Left thigh pain ? No fluctuance or tenderness on physical exam ? Check venous Dopplers bilateral lower extremities Full code Purdy catheter placed ? SCDs for DVT prophylaxis Check orthostatic vitals. - negative Continue to monitor blood pressure. BP and HB stable so far. Constipation ? Order MiraLAX daily - docusate senna 100 bid - lactulose 20 g x1 Continue purdy since pt was retaining. pt awaiting insurance authorization Attestations 2 Medical Necessity Statement*: Okay to discharge awaiting placement Diagnoses Fever R50.9 Status post lumbar spinal fusion Z98.1 Postoperative anemia D64.9
[2023-09-25] MEDS: oxyCODONE 5 mg IR Tab/Cap PO (13:48)
[2023-09-25 16:40] LABS: Glucose Point of Care 194 mg/dL (70-110)
[2023-09-25 16:47] LABS: SARS Covid-2 Antigen negative (Negative)
== END 2023-09-25 15:55 | disposition skilled nursing facility (03) | DRG 454 ==
LOC: MEDSURG 10:13
PROVIDERS: Anesthesiology; Family Medicine; Internal Medicine; Admitting Provider Orthopaedic Surgery; PCP Family Medicine; Visit Provider Orthopaedic Surgery
PROC: 0SG00AJ Fusion of Lumbar Vertebral Joint with Interbody Fusion Device, Posterior Approach, Anterior Column, Open Approach (ICD-10-PCS; principal; 2023-09-15 07:00)
PROC: 0SG00AJ Fusion of Lumbar Vertebral Joint with Interbody Fusion Device, Posterior Approach, Anterior Column, Open Approach (ICD-10-PCS; 2023-09-15 07:00)
PROC: 0SG00AJ Fusion of Lumbar Vertebral Joint with Interbody Fusion Device, Posterior Approach, Anterior Column, Open Approach (ICD-10-PCS; CPT 27280; 2023-09-15 07:00)
DX: M48.062 Spinal stenosis, lumbar region with neurogenic claudication (principal); D62 Acute posthemorrhagic anemia; F33.3 Major depressive disorder, recurrent, severe with psychotic symptoms; I12.9 Hypertensive chronic kidney disease with stage 1 through stage 4 chronic kidney disease, or unspecified chronic kidney disease; E11.22 Type 2 diabetes mellitus with diabetic chronic kidney disease; N18.9 Chronic kidney disease, unspecified; E66.01 Morbid (severe) obesity due to excess calories; E07.9 Disorder of thyroid, unspecified; M48.10 Ankylosing hyperostosis [Forestier], site unspecified; F70 Mild intellectual disabilities; F41.1 Generalized anxiety disorder; Z96.652 Presence of left artificial knee joint; K59.00 Constipation, unspecified; M79.652 Pain in left thigh; R50.82 Postprocedural fever; I95.81 Postprocedural hypotension; Z11.52 Encounter for screening for COVID-19; Z68.36 Body mass index [BMI] 36.0-36.9, adult; Z79.82 Long term (current) use of aspirin; Z79.84 Long term (current) use of oral hypoglycemic drugs; Z75.1 Person awaiting admission to adequate facility elsewhere
CPT/HCPCS: 36415; 36416; 36430; 51702; 71045; 72100; 76000; 80048; 80053; 81003; 82533; 82728; 82962; 83540; 83605; 83735; 84439; 84443; 84481; 85014; 85018; 85025; 86850; 86900; 86920; 87040; 87426; 93970; 96372; 97116; 97163; 97166; 97530; 97535; A9281; C1713; C9359; G0378; J0131; J0330; J1100; J1170; J1644; J1815; J1885; J2270; J2371; J2405; J2704; J3010; J3370; J3490; J7030; J7040; J7120; P9016; P9045

== ENCOUNTER → 2023-09-30 14:58 | Outpatient (BNVA) | payer MEDICARE, SELFPAY | PROVIDERS: PCP Family Medicine; Visit Provider Orthopaedic Surgery | DX: Z98.1 Arthrodesis status (principal); E11.8 Type 2 diabetes mellitus with unspecified complications; E11.49 Type 2 diabetes mellitus with other diabetic neurological complication; L60.3 Nail dystrophy; Z79.84 Long term (current) use of oral hypoglycemic drugs | CPT/HCPCS: 11721; 99024 ==

== ENCOUNTER → 2023-10-20 12:00 | Outpatient (BNVA) | payer MEDICARE, SELFPAY | PROVIDERS: PCP Family Medicine; Visit Provider Nurse Practitioner Family | DX: I10 Essential (primary) hypertension (principal) | CPT/HCPCS: 80053; 80061 ==

== ENCOUNTER → 2023-10-28 13:26 | Outpatient (BNVA) | payer MEDICARE, SELFPAY | PROVIDERS: PCP Nurse Practitioner Family; Visit Provider Orthopaedic Surgery | DX: Z98.1 Arthrodesis status (principal) | CPT/HCPCS: 72100; 99024 ==

== ENCOUNTER → 2023-11-03 13:30 | Outpatient (BNVA) | payer MEDICARE, SELFPAY | PROVIDERS: PCP Nurse Practitioner Family; Visit Provider Nurse Practitioner Family | DX: E87.5 Hyperkalemia (principal) | CPT/HCPCS: 80053 ==

== ENCOUNTER → 2023-12-09 08:30 | Outpatient (BNVA) | payer MEDICARE, SELFPAY | PROVIDERS: PCP Nurse Practitioner Family; Visit Provider Orthopaedic Surgery | DX: Z98.1 Arthrodesis status (principal) | CPT/HCPCS: 72100; 99024 ==

== ENCOUNTER 2023-12-18 06:00 | Outpatient (RCR) | payer MEDICARE, SELFPAY | END 2024-01-10 23:59 | disposition home or self-care (01) | LOC: MPT 06:00 | PROVIDERS: Visit Provider Orthopaedic Surgery | DX: M54.50 Low back pain, unspecified (principal); G89.29 Other chronic pain | CPT/HCPCS: 97110; 97112; 97162; 97530 ==

== ENCOUNTER → 2023-12-30 10:23 | Outpatient (BNVA) | payer MEDICARE, SELFPAY | PROVIDERS: PCP Family Medicine; Visit Provider Podiatrist Foot & Ankle Surgery | DX: L60.3 Nail dystrophy; M25.372 Other instability, left ankle; E11.69 Type 2 diabetes mellitus with other specified complication; Z79.84 Long term (current) use of oral hypoglycemic drugs | CPT/HCPCS: 11721; 99213 ==

== ENCOUNTER 2024-01-11 06:30 | Outpatient (RCR) | payer MEDICARE, SELFPAY | END 2024-02-09 23:59 | disposition home or self-care (01) | LOC: MPT 06:30 | PROVIDERS: PCP Family Medicine; Visit Provider Orthopaedic Surgery | DX: M54.50 Low back pain, unspecified (principal); G89.29 Other chronic pain | CPT/HCPCS: 97110; 97112; 97164; 97530 ==

== ENCOUNTER 2024-02-10 06:00 | Outpatient (RCR) | payer MEDICARE, SELFPAY | END 2024-03-11 23:59 | disposition home or self-care (01) | LOC: MPT 06:00 | PROVIDERS: PCP Family Medicine; Visit Provider Orthopaedic Surgery | DX: M54.50 Low back pain, unspecified (principal); G89.29 Other chronic pain | CPT/HCPCS: 97110; 97112; 97140; 97530 ==

== ENCOUNTER → 2024-03-08 11:00 | Outpatient (BNVA) | payer MEDICARE, SELFPAY | PROVIDERS: PCP Family Medicine; Visit Provider Nurse Practitioner Family | DX: L72.3 Sebaceous cyst (principal); L08.9 Local infection of the skin and subcutaneous tissue, unspecified | CPT/HCPCS: 87070 ==

== ENCOUNTER → 2024-03-09 08:30 | Outpatient (BNVA) | payer MEDICARE, SELFPAY | PROVIDERS: PCP Nurse Practitioner Family; Visit Provider Orthopaedic Surgery | DX: Z98.1 Arthrodesis status (principal) | CPT/HCPCS: 72100; 99214 ==

== ENCOUNTER → 2024-03-30 09:09 | Outpatient (BNVA) | payer MEDICARE, SELFPAY | PROVIDERS: PCP Nurse Practitioner Family; Visit Provider Podiatrist Foot & Ankle Surgery | DX: E11.69 Type 2 diabetes mellitus with other specified complication; L60.3 Nail dystrophy; M25.372 Other instability, left ankle; Z79.84 Long term (current) use of oral hypoglycemic drugs | CPT/HCPCS: 99213 ==

== ENCOUNTER → 2024-05-14 09:05 | Outpatient (BNVA) | payer MEDICARE, SELFPAY | PROVIDERS: PCP Nurse Practitioner Family; Visit Provider Nurse Practitioner Family | DX: F11.20 Opioid dependence, uncomplicated (principal); E11.9 Type 2 diabetes mellitus without complications; I10 Essential (primary) hypertension; E03.9 Hypothyroidism, unspecified; Z79.899 Other long term (current) drug therapy | CPT/HCPCS: 80053; 80061; 80307; 82043; 83036; 83721; 84443 ==

== ENCOUNTER → 2024-05-31 12:55 | Outpatient (BNVA) | payer MEDICARE, SELFPAY | PROVIDERS: PCP Nurse Practitioner Family; Visit Provider Nurse Practitioner Family | DX: S39.92XA Unspecified injury of lower back, initial encounter (principal); R53.83 Other fatigue; W19.XXXA Unspecified fall, initial encounter | CPT/HCPCS: 81000; 87086 ==

== ENCOUNTER 2024-06-17 15:55 | Inpatient (IN) | payer MEDICARE, SELFPAY ==
[2024-06-17] VITALS (7 sets, daily range): BP systolic 87–124; BP diastolic 45–60; PULSE 60–70; RESP 16–18; TEMP 36.6; O2SAT 94–98; BMI 37.8
--- NOTE | 2024-06-17 16:27 | XRR_ITS ---
PROCEDURE INFORMATION: Exam: XR Chest Exam date and time: 06/17/2024 4:46 PM Age: 64 years old Clinical indication: Other: Weakness TECHNIQUE: Imaging protocol: Radiologic exam of the chest. Views: 1 view. COMPARISON: CR XR chest 1V portable [id number] 09/16/2023 7:52 PM FINDINGS: Lungs: Hypoinflated lungs. No focal consolidation or other acute appearing pulmonary opacity. Pleural spaces: No pleural effusion or pneumothorax noted. Heart/Mediastinum: There is cardiomegaly. Bones/joints: No acute osseous abnormality. XR/XR chest 1V portable [id number] IMPRESSION: No acute findings.
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
[2024-06-17] MEDS: iohexol 350 mg/mL 500 mL Btl (per mL) IV (17:09)
[2024-06-17 18:36] LABS: Influenza A NEGATIVE (Negative); Influenza B NEGATIVE (Negative); Respiratory Syncytial Virus Ce NEGATIVE (Negative); SARS-CoV-2 PCR NEGATIVE (Negative)
[2024-06-17 19:02] LABS: Basophils % 0.4 %; Eosinophils # 0.2 10^3/uL (0.0-0.8); Eosinophils % 2.2 %; Hematocrit 32.4 % (37-53); Lymphocytes # 1.2 10^3/uL (0.8-4.8); Lymphocytes % 15.7 %; Mean Corpuscular HGB Conc 32.1 g/dL (30-55); Mean Corpuscular Hemoglobin 30.2 pg (27-33); Mean Corpuscular Volume 94.2 fl (82-101); Mean Platelet Volume 11.4 fL (7.4-10.4); Monocytes # 1.4 10^3/uL (0.2-0.9); Monocytes % 18.3 %; Neutrophils # 4.76 10^3/uL (1.8-7.7); Neutrophils % 62.2 %; Nucleated Red Blood Cells % 0 %; Platelet Count 267 10^3/cmm (157-399); Red Blood Count 3.44 10^6/uL (3.85-5.65); Red Cell Distribution Width 12.4 % (12.1-15.1); White Blood Count 7.65 10^3/uL (3.29-11.43)
--- NOTE | 2024-06-17 19:08 | PC.NURSE ---
PT REFUSING TO LAY ON BACK TO OBTAIN ACCURATE BLOOD PRESSURE READING. PROVIDER NOTIFIED.
[2024-06-17 20:15] LABS: Alanine Aminotransferase 54 U/L (0-41); Albumin Level 3.7 g/dL (3.5-5.2); Alkaline Phosphatase 92 U/L (40-130); Anion Gap 21.9 (5-19); Aspartate Amino Transferase 148 U/L (0-40); Calcium 9.2 mg/dL (8.5-10.5); Carbon Dioxide 19 mmol/L (22-29); Chloride 95 mmol/L (98-107); Creatinine Clr Calc Pharmacy 16.2405; Globulin 3.8 g/dL (1.3-4.6); Glomerular Filtration Rate 10.1 mL/min (90-130); Glucose 68 mg/dL (65-115); Osmolality Calculated 297 mOsm/kg (285-295); Potassium 4.9 mmol/L (3.5-5.1); Sodium 131 mmol/L (136-145); Total Bilirubin 0.7 mg/dL (0.15-1.2); Total Protein 7.5 g/dL (6.6-8.7)
[2024-06-17 20:20] LABS: Blood Urea Nitrogen 87 mg/dL (8-23)
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
[2024-06-17 21:05] LABS: Alcohol Level < 10 mg/dL (0-10)
[2024-06-17] MEDS: sodium chloride 0.9% 1,000 ML 999 ML IV (21:05)
[2024-06-17] MEDS: thiamine 100 mg/mL 2mL SDV IM (21:05)
[2024-06-17 21:37] LABS: Creatine Phosphokinase 4936 U/L (39-308)
[2024-06-17 23:09] LABS: Bilirubin Urine Negative (Negative); Blood Urine 2+ (Negative); Glucose Urine UA Negative (Normal); Ketones Urine Negative (Negative); Leukocyte Esterase Urine 1+ (Negative); Nitrate Urine Negative (Negative); Protein Urine 1+ (Negative); Specific Gravity, Urine 1.019 (1.005-1.030); Urine Appearance Clear (CLEAR); Urine Color Yellow (Yellow); pH Urine 5.5 (5-7)
[2024-06-17 23:13] LABS: Add Urine Microscopic? YES; Bacteria Urine None Seen /hpf; Hyaline Casts Urine 7.01 /lpf; RBC Urine 0-2 /hpf (0-2); Squamous Epithelial Cell Urine 0-5 /hpf (0-5)
[2024-06-17] MEDS: sodium chloride 0.9% 1,000 ML 100 ML IV (23:14)
[2024-06-17 23:22] LABS: Add Urine Culture? Yes
--- NOTE | 2024-06-17 23:30 | PC.NURSE ---
ASSUMED CARE OF PT AT 2100
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
[2024-06-17] MEDS: cefTRIAXone 1,000 mg SDV 1000 MG IVP (23:56)
[2024-06-17] MEDS: metroNIDAZOLE 500 MG Tablet PO (23:58)
[2024-06-17] MEDS: heparin 5,000 unit/mL INJ 1 mL 5000 UNIT SUBCUT (23:58)
[2024-06-18] VITALS (9 sets, daily range): BP systolic 93–123; BP diastolic 47–80; PULSE 57–89; RESP 14–18; TEMP 36.7–37.3; O2SAT 94–99
[2024-06-18 04:26] LABS: Basophils % 0.2 %; Eosinophils # 0.2 10^3/uL (0.0-0.8); Eosinophils % 2.7 %; Lymphocytes # 1.1 10^3/uL (0.8-4.8); Lymphocytes % 18.2 %; Mean Corpuscular Hemoglobin 29.8 pg (27-33); Mean Corpuscular Volume 93.2 fl (82-101); Monocytes # 1.1 10^3/uL (0.2-0.9); Monocytes % 18.7 %; Neutrophils # 3.42 10^3/uL (1.8-7.7); Neutrophils % 57.5 %; Nucleated Red Blood Cells % 0 %; Platelet Count 227 10^3/cmm (157-399); Red Blood Count 3.22 10^6/uL (3.85-5.65); Red Cell Distribution Width 12.5 % (12.1-15.1); White Blood Count 5.94 10^3/uL (3.29-11.43)
[2024-06-18 04:50] LABS: Magnesium 3.2 mg/dL (1.7-2.3); Phosphorus 4.3 mg/dL (2.5-4.5)
[2024-06-18 05:25] LABS: Creatine Phosphokinase 3810 U/L (39-308)
[2024-06-18] MEDS: metroNIDAZOLE 500 MG Tablet PO ×3 (06:27→22:02)
[2024-06-18] MEDS: folic acid 1 mg Tablet PO (08:13)
[2024-06-18] MEDS: thiamine 100 mg Tablet PO (08:13)
[2024-06-18] MEDS: heparin 5,000 unit/mL INJ 1 mL 5000 UNIT SUBCUT ×2 (08:13→20:11)
[2024-06-18] MEDS: levothyroxine 75 mcg Tablet PO (08:13)
[2024-06-18] MEDS: multivitamin therapeutic Tablet 1 TAB PO (08:13)
[2024-06-18] MEDS: sodium chloride 0.9% 1,000 ML 100 ML IV ×3 (08:18→22:02)
--- NOTE | 2024-06-18 08:27 | USCV_ITS ---
Sandip Hirsch Age: 64 Gender: M : 1960 Exam Date: 06/18/2024 17:18 Ordering Phys: Riaz Vazquez MD Technologist: Bernabe Whiteside Exam Location: [facility] Indication: AO STENOSIS BP: 123 / 80 HR: 69 Rhythm: Sinus Technical Quality: Adequate MEASUREMENTS (Male / Female) Normal Values 2D ECHO LV Diastolic Diameter PLAX 5.5 cm 4.2 - 5.9 / 3.9 - 5.3 cm IVS Diastolic Thickness 1.3 cm 0.6 - 1.0 / 0.6 - 0.9 cm IVS Systolic Thickness 1.8 cm LVPW Diastolic Thickness 1.5 cm 0.6 - 1.0 / 0.6 - 0.9 cm LVPW Systolic Thickness 1.7 cm LVOT Diameter 2.1 cm LV Ejection Fraction 2D Teich 72.3 % LV Ejection Fraction MOD 4C 69.3 % LV Ejection Fraction MOD 2C 50.4 % LV Ejection Fraction 2C AL 52.0 % LA Diameter 3.4 cm RA Systolic Volume 4C AL 37.3 ml RA Systolic Volume 4C MOD 37.6 ml LA Sys Volume AL 54.4 cm cubed LA Sys Volume Index AL 22.1 cm cubed/m squared Aorta at Sinotubular Diameter 2.0 cm IVC Diameter 1.9 cm M-MODE LA Ao Ratio MM 1.3 AV Cusp Separation MM 1.3 cm DOPPLER AV Peak Velocity 229.0 cm/s LVOT Peak Velocity 92.0 cm/s AV Area Cont Eq vti 1.5 cm squared AV Area Cont Eq pk 1.3 cm squared MV Peak Velocity 95.0 cm/s MV Area PHT 2.9 cm squared Mitral E to A Ratio 0.9 TR Peak Velocity 348.0 cm/s TR Peak Gradient 48.4 mmHg TR Mean Velocity 278.0 cm/s TR Mean Gradient 33.8 mmHg TR Velocity Time Integral 85.4 cm PV Peak Velocity 117.0 cm/s RV Ejection Time 0.3 s FINDINGS Left Ventricle Normal left ventricular size, systolic function and wall thickness, with no regional wall motion abnormalities. Left ventricular ejection fraction is estimated at 60 %. Grade I/IV diastolic dysfunction (abnormal relaxation filling pattern), normal to mildly elevated filling pressures. Right Ventricle The right ventricle is normal in size and function. Right Atrium The right atrium is normal in size. Left Atrium The left atrium is normal in size. Mitral Valve Moderately thickened mitral valve. Moderate mitral annular calcification. No mitral valve stenosis. Trace mitral valve regurgitation. Aortic Valve Moderate aortic valve calcification. Mild aortic valve stenosis, mean gradient 9.8 mmHg, CARMELA 1.5 cm squared. Trace aortic valve regurgitation. Tricuspid Valve Structurally normal tricuspid valve without significant stenosis or regurgitation. Pulmonary artery systolic pressure is normal. Pulmonic Valve Structurally normal pulmonic valve without significant stenosis. There is no pulmonic regurgitation. Pericardium Normal pericardium without effusion. Aorta Normal ascending aorta dimension. IVC The inferior vena cava appears normal. CONCLUSIONS Normal left ventricular size, systolic function and wall thickness, with no regional wall motion abnormalities. Left ventricular ejection fraction is estimated at 60 %. Grade I/IV diastolic dysfunction (abnormal relaxation filling pattern), normal to mildly elevated filling pressures. Moderate aortic valve calcification. Mild aortic valve stenosis, mean gradient 9.8 mmHg, CARMELA 1.5 cm squared. Trace aortic valve regurgitation. Moderately thickened mitral valve. Moderate mitral annular calcification. No mitral valve stenosis. Trace mitral valve regurgitation. There is no pericardial effusion. Right atrial pressure is around 5 mm of mercury. Latrice Banuelos MD (Electronically Signed) Final Date: 19 June 2024 18:37 S
--- NOTE | 2024-06-18 08:48 | PC.PHAR ---
Pt doesn't seem to really know what medications he takes. Verified with his mail order pharmacy according to last fill dates and day supply.
[2024-06-18 09:16] LABS: Basophils % 0.6 %; Eosinophils # 0.2 10^3/uL (0.0-0.8); Eosinophils % 3.9 %; Hematocrit 30.5 % (37-53); Lymphocytes # 0.8 10^3/uL (0.8-4.8); Lymphocytes % 16.4 %; Mean Corpuscular HGB Conc 32.1 g/dL (30-55); Mean Corpuscular Hemoglobin 29.8 pg (27-33); Mean Corpuscular Volume 92.7 fl (82-101); Mean Platelet Volume 10.7 fL (7.4-10.4); Monocytes # 0.9 10^3/uL (0.2-0.9); Monocytes % 18.3 %; Neutrophils # 2.96 10^3/uL (1.8-7.7); Neutrophils % 57.7 %; Nucleated Red Blood Cells % 0 %; Platelet Count 241 10^3/cmm (157-399); Red Blood Count 3.29 10^6/uL (3.85-5.65); Red Cell Distribution Width 12.5 % (12.1-15.1); White Blood Count 5.13 10^3/uL (3.29-11.43)
[2024-06-18 09:32] LABS: D Dimer 3.58 ug/mLFEU (0-0.59)
[2024-06-18 09:35] LABS: Alanine Aminotransferase 63 U/L (0-41); Albumin Level 3.2 g/dL (3.5-5.2); Alkaline Phosphatase 82 U/L (40-130); Anion Gap 17.5 (5-19); Aspartate Amino Transferase 135 U/L (0-40); Blood Urea Nitrogen 67 mg/dL (8-23); Calcium 8.7 mg/dL (8.5-10.5); Carbon Dioxide 17 mmol/L (22-29); Chloride 101 mmol/L (98-107); Creatinine Clr Calc Pharmacy 28.5557; Globulin 3.6 g/dL (1.3-4.6); Glomerular Filtration Rate 18.9 mL/min (90-130); Glucose 148 mg/dL (65-115); Iron 46 ug/dL (59-158); Osmolality Calculated 294 mOsm/kg (285-295); Percent Saturation 17.6 % (20-50); Potassium 4.5 mmol/L (3.5-5.1); Sodium 131 mmol/L (136-145); Total Bilirubin 0.5 mg/dL (0.15-1.2); Total Iron Binding Capacity 261 mcg/dl; Total Protein 6.8 g/dL (6.6-8.7); Unsaturated Iron Binding 215 ug/dL (112-347)
[2024-06-18 09:51] LABS: Procalcitonin 1.57 ng/mL (0-0.5); Vitamin B12 543 pg/mL (232-1245)
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
--- NOTE | 2024-06-18 13:29 | ECG_ITS ---
[facility]24[facility]18 Pat Name: Sandip Hirsch Department: Room: 250 Gender: Male Vice Principal: : 1960 Requested By: Riaz Vazquez Order Number: [id number] Reading MD: WENDY COON Measurements Intervals [place] Rate: 64 P: 94 MS: 215 QRS: 48 QRSD: 102 T: 49 QT: 393 QTc: 406 Interpretive Statements SINUS RHYTHM WITH FIRST DEGREE AV BLOCK Compared to ECG 08/26/2023 09:22:08 First degree AV block now present Electronically Signed On 06-20-2024 21:04:43 CARAMEL MAKER by WENDY COON [email or web address]
[2024-06-18] MEDS: gabapentin 100 mg Capsule PO ×2 (14:10→20:11)
[2024-06-18 14:56] LABS: Troponin(5th) Baseline 13 ng/L (0-15)
--- NOTE | 2024-06-18 15:21 | ECG_ITS ---
[facility] Pat Name: Sandip Hirsch Department: Room: 250 Gender: Male Email Producer: : 1960 Requested By: Riaz Vazquez Order Number: [id number] Reading MD: WENDY COON Measurements Intervals [place] Rate: 68 P: 89 NV: 210 QRS: 37 QRSD: 101 T: 33 QT: 385 QTc: 411 Interpretive Statements SINUS RHYTHM WITH FIRST DEGREE AV BLOCK Compared to ECG 06/18/2024 13:29:37 No significant changes Electronically Signed On 06-20-2024 21:11:36 INSURANCE SALES ASSOCIATE by WENDY COON [email or web address]
[2024-06-18] MEDS: ziprasidone hcl 40 mg Capsule 80 MG PO (16:44)
[2024-06-18 16:46] LABS: HIV 1 & 2 Antibody Non-Reactive (Non-Reactiv); HIV 1 & 2 Antigen Non-Reactive (Non-Reactiv)
[2024-06-18 16:57] LABS: Troponin 5 2HR 13.72 ng/L (0-15); Troponin 5 2HR Delta 0.72 ABS# (0-10)
[2024-06-18 17:30] LABS: Hepatitis A Antibody IgM Non-Reactive (Nonreactive); Hepatitis B Core AB, Total Non-Reactive (Nonreactive); Hepatitis B Surface AB < 3.5 (11.5-1000); Hepatitis B Surface Antigen Non-Reactive (Nonreactive); Hepatitis C Virus Antibody Non-Reactive (Nonreactive)
[2024-06-18] MEDS: perflutren protein-a microsphr 0.22 mg/mL SDV 3 mL IV (18:05)
--- NOTE | 2024-06-18 18:49 | ECG_ITS ---
[facility]: 2024-[facility]18 Pat Name: Sandip Hirsch Department: Room: 250 Gender: Male Manager Physical: : 1960 Requested By: Riaz Vazquez Order Number: [id number] Reading MD: WENDY COON Measurements Intervals [place] Rate: 75 P: 44 KS: 200 QRS: 46 QRSD: 102 T: 46 QT: 375 QTc: 420 Interpretive Statements SINUS RHYTHM Compared to ECG 06/18/2024 15:21:43 First degree AV block no longer present Electronically Signed On 06-20-2024 21:10:40 GLUCOSE AND SYRUP WEIGHER by WENDY COON [id number]
[2024-06-18 19:58] LABS: Troponin 5 6HR 12.09 ng/L (0-15)
[2024-06-18 19:59] LABS: Troponin 5 6HR Delta -0.91 ng/L (0-12)
[2024-06-18] MEDS: quetiapine 100 mg Tablet 200 MG PO (20:11)
[2024-06-18] MEDS: acetaminophen 500 mg Tablet PO (20:13)
[2024-06-18] MEDS: cefTRIAXone 1,000 mg SDV 1000 MG IVP (22:02)
[2024-06-19 04:21] VITALS: BP 157/67; PULSE 68; RESP 17; TEMP 36.4; O2SAT 96; BMI 38.0
[2024-06-19 04:39] LABS: Basophils # 0.1 10^3/uL (0.0-0.1); Eosinophils # 0.3 10^3/uL (0.0-0.8); Eosinophils % 3.8 %; Hematocrit 33.1 % (37-53); Lymphocytes # 1.7 10^3/uL (0.8-4.8); Lymphocytes % 23.2 %; Mean Corpuscular Volume 93.8 fl (82-101); Mean Platelet Volume 11.2 fL (7.4-10.4); Monocytes # 1.4 10^3/uL (0.2-0.9); Monocytes % 19.7 %; Neutrophils # 3.15 10^3/uL (1.8-7.7); Neutrophils % 44.2 %; Nucleated Red Blood Cells % 0 %; Platelet Count 259 10^3/cmm (157-399); Red Blood Count 3.53 10^6/uL (3.85-5.65); Red Cell Distribution Width 12.6 % (12.1-15.1); White Blood Count 7.14 10^3/uL (3.29-11.43)
[2024-06-19] MEDS: acetaminophen 500 mg Tablet PO (04:42)
[2024-06-19 04:51] LABS: Alanine Aminotransferase 93 U/L (0-41); Albumin Level 3.6 g/dL (3.5-5.2); Alkaline Phosphatase 105 U/L (40-130); Anion Gap 18.6 (5-19); Aspartate Amino Transferase 139 U/L (0-40); Blood Urea Nitrogen 44 mg/dL (8-23); Carbon Dioxide 21 mmol/L (22-29); Chloride 99 mmol/L (98-107); Creatinine Clr Calc Pharmacy 40.3879; Globulin 3.7 g/dL (1.3-4.6); Glomerular Filtration Rate 28.7 mL/min (90-130); Glucose 116 mg/dL (65-115); Osmolality Calculated 290 mOsm/kg (285-295); Potassium 4.6 mmol/L (3.5-5.1); Sodium 134 mmol/L (136-145); Total Bilirubin 0.5 mg/dL (0.15-1.2); Total Protein 7.3 g/dL (6.6-8.7)
[2024-06-19 05:13] LABS: Magnesium 2.5 mg/dL (1.7-2.3)
[2024-06-19] MEDS: metroNIDAZOLE 500 MG Tablet PO ×3 (05:14→22:17)
[2024-06-19] MEDS: venlafaxine ER (24HR) 150 mg Capsule PO (05:14)
[2024-06-19 05:39] LABS: Slide Review Slide Review Perform
[2024-06-19 05:42] LABS: Folate Level > 20.0 ng/mL (4.5-32.2)
[2024-06-19 06:05] LABS: Creatine Phosphokinase 1567 U/L (39-308)
[2024-06-19 07:50] VITALS: BP 112/62; PULSE 74; RESP 18; TEMP 36.9; O2SAT 92
[2024-06-19] MEDS: sodium chloride 0.9% 1,000 ML 100 ML IV (08:40)
[2024-06-19] MEDS: thiamine 100 mg Tablet PO (08:40)
[2024-06-19] MEDS: gabapentin 100 mg Capsule PO ×3 (08:41→20:38)
[2024-06-19] MEDS: aspirin 81 mg EC Tablet PO (08:41)
[2024-06-19] MEDS: folic acid 1 mg Tablet PO (08:41)
[2024-06-19] MEDS: heparin 5,000 unit/mL INJ 1 mL 5000 UNIT SUBCUT ×2 (08:41→20:38)
[2024-06-19] MEDS: BuSPIRONE 10 mg Tablet 20 MG PO (08:41)
[2024-06-19] MEDS: levothyroxine 75 mcg Tablet PO (08:41)
[2024-06-19] MEDS: multivitamin therapeutic Tablet 1 TAB PO (08:41)
[2024-06-19 08:57] VITALS: PULSE 69; RESP 16; O2SAT 95
[2024-06-19 12:00] VITALS: BP 124/64; PULSE 77; RESP 20; TEMP 36.8; O2SAT 95
[2024-06-19] MEDS: HYDROcodone-acetaminophen 5-325 mg Tablet 1 TAB PO ×2 (13:45→20:37)
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
[2024-06-19 15:50] LABS: Anion Gap 18.9 (5-19); Blood Urea Nitrogen 30 mg/dL (8-23); Calcium 9.2 mg/dL (8.5-10.5); Carbon Dioxide 21 mmol/L (22-29); Chloride 97 mmol/L (98-107); Creatinine Clr Calc Pharmacy 58.0576; Glomerular Filtration Rate 43.6 mL/min (90-130); Glucose 149 mg/dL (65-115); Osmolality Calculated 283 mOsm/kg (285-295); Potassium 4.9 mmol/L (3.5-5.1); Sodium 132 mmol/L (136-145)
[2024-06-19 16:00] VITALS: BP 112/61; PULSE 77; RESP 18; TEMP 36.8; O2SAT 97
[2024-06-19] MEDS: ziprasidone hcl 40 mg Capsule 80 MG PO (16:04)
[2024-06-19] MEDS: sodium chloride 0.9% 1,000 ML 125 ML IV (18:15)
[2024-06-19 19:36] VITALS: BP 129/80; PULSE 78; RESP 16; TEMP 36.8; O2SAT 93
[2024-06-19] MEDS: quetiapine 100 mg Tablet 200 MG PO (20:38)
[2024-06-19] MEDS: cefTRIAXone 1,000 mg SDV 1000 MG IVP (22:17)
[2024-06-20] VITALS: BP 106/58; PULSE 84; RESP 17; TEMP 37; O2SAT 97
[2024-06-20] MEDS: sodium chloride 0.9% 1,000 ML 125 ML IV ×2 (01:33→10:19)
[2024-06-20 04:00] VITALS: BP 135/75; PULSE 96; RESP 18; TEMP 36.8; O2SAT 99
[2024-06-20] MEDS: metroNIDAZOLE 500 MG Tablet PO (05:07)
[2024-06-20] MEDS: venlafaxine ER (24HR) 150 mg Capsule PO (05:08)
[2024-06-20] MEDS: HYDROcodone-acetaminophen 5-325 mg Tablet 1 TAB PO (05:10)
[2024-06-20 05:57] LABS: Hematocrit 32.6 % (37-53); Mean Corpuscular HGB Conc 32.2 g/dL (30-55); Mean Corpuscular Hemoglobin 29.8 pg (27-33); Mean Corpuscular Volume 92.6 fl (82-101); Mean Platelet Volume 10.5 fL (7.4-10.4); Platelet Count 310 10^3/cmm (157-399); Red Blood Count 3.52 10^6/uL (3.85-5.65); Red Cell Distribution Width 12.5 % (12.1-15.1); White Blood Count 9.05 10^3/uL (3.29-11.43)
[2024-06-20 06:14] LABS: Alanine Aminotransferase 67 U/L (0-41); Albumin Level 3.4 g/dL (3.5-5.2); Alkaline Phosphatase 85 U/L (40-130); Anion Gap 21.2 (5-19); Aspartate Amino Transferase 58 U/L (0-40); Blood Urea Nitrogen 21 mg/dL (8-23); Calcium 8.8 mg/dL (8.5-10.5); Carbon Dioxide 19 mmol/L (22-29); Chloride 101 mmol/L (98-107); Creatinine Clr Calc Pharmacy 61.9281; Globulin 2.7 g/dL (1.3-4.6); Glucose 121 mg/dL (65-115); Osmolality Calculated 286 mOsm/kg (285-295); Potassium 5.2 mmol/L (3.5-5.1); Sodium 136 mmol/L (136-145); Total Bilirubin 0.4 mg/dL (0.15-1.2); Total Protein 6.1 g/dL (6.6-8.7)
[2024-06-20 06:15] LABS: Magnesium 1.7 mg/dL (1.7-2.3)
[2024-06-20 06:26] LABS: Slide Review Slide Review Perform
[2024-06-20 06:29] LABS: Absolute Eosinophils 0.3 10^3/cmm (0.0-0.7); Absolute Segmented Neutrophil 4.9 10/cmm (1.6-7.1); Band Neutrophils Absolute 0.4 10^3/cmm (0.0-1.2); Basophils Absolute 0.1 10^3/cmm (0.0-0.2); Eosinophils 3 %; Lymphocytes 24 %; Lymphocytes Absolute 2.4 10^3/cmm (1.2-3.4); Monocytes Absolute 0.5 10^3/cmm (0.1-0.6); Segmented Neutrophils 54 %; Total Cells Counted 100 (0-100)
[2024-06-20 06:30] LABS: Absolute Neutrophil 5.2 10^3/cmm (1.4-6.5); Anisocytosis Trace; Platelet Estimate Normal (Normal); Smudge Cells 2+
[2024-06-20 06:37] LABS: Creatine Phosphokinase 571 U/L (39-308)
[2024-06-20 08:00] VITALS: BP 116/63; PULSE 93; RESP 17; TEMP 36.8; O2SAT 94
[2024-06-20] MEDS: aspirin 81 mg EC Tablet PO (08:53)
[2024-06-20] MEDS: levothyroxine 75 mcg Tablet PO (08:53)
[2024-06-20] MEDS: BuSPIRONE 10 mg Tablet 20 MG PO (08:53)
[2024-06-20] MEDS: multivitamin therapeutic Tablet 1 TAB PO (08:53)
[2024-06-20] MEDS: thiamine 100 mg Tablet PO (08:53)
[2024-06-20] MEDS: heparin 5,000 unit/mL INJ 1 mL 5000 UNIT SUBCUT (08:53)
[2024-06-20] MEDS: folic acid 1 mg Tablet PO (08:53)
[2024-06-20] MEDS: gabapentin 100 mg Capsule PO (08:53)
[2024-06-20 10:35] VITALS: PULSE 93; RESP 18; O2SAT 97
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
[2024-06-20 12:00] VITALS: BP 159/78; PULSE 91; RESP 17; TEMP 36.8; O2SAT 97
[2024-06-20 14:30] VITALS: BP 158/78; PULSE 80; RESP 18; TEMP 36.8; O2SAT 97
[2024-06-22 15:15] LABS: Campylobacter Group NOT DETECTED (NOT DETECTED); Norovirus GI/GII NOT DETECTED (NOT DETECTED); Rotavirus A NOT DETECTED (NOT DETECTED); Shiga Toxin 1 NOT DETECTED (NOT DETECTED); Shigella Species NOT DETECTED (NOT DETECTED); Vibrio Group NOT DETECTED (NOT DETECTED); Yersinia Enterocolotica NOT DETECTED (NOT DETECTED)
== END 2024-06-20 14:30 | disposition home health service (06) | DRG 683 ==
LOC: ER 20:52 → MEDSURG 22:10
PROVIDERS: Admitting Provider Internal Medicine; Emergency Provider Physician Assistant; PCP Nurse Practitioner Family; Visit Provider Student in an Organized Health Care Education/Training Program
DX: N17.9 Acute kidney failure, unspecified (principal); E87.1 Hypo-osmolality and hyponatremia; F33.3 Major depressive disorder, recurrent, severe with psychotic symptoms; M62.82 Rhabdomyolysis; K52.9 Noninfective gastroenteritis and colitis, unspecified; K21.9 Gastro-esophageal reflux disease without esophagitis; E11.9 Type 2 diabetes mellitus without complications; E03.9 Hypothyroidism, unspecified; I10 Essential (primary) hypertension; F41.1 Generalized anxiety disorder; E86.0 Dehydration; Z79.891 Long term (current) use of opiate analgesic; Z79.82 Long term (current) use of aspirin; V89.2XXA Person injured in unspecified motor-vehicle accident, traffic, initial encounter; M48.10 Ankylosing hyperostosis [Forestier], site unspecified; F70 Mild intellectual disabilities; Z96.652 Presence of left artificial knee joint; Z88.0 Allergy status to penicillin
CPT/HCPCS: 36415; 70450; 71045; 71260; 72125; 73060; 74177; 80048; 80053; 80307; 81001; 82550; 82607; 82746; 83540; 83550; 83605; 83735; 84100; 84145; 84484; 85007; 85025; 85378; 86403; 86705; 86706; 86709; 86803; 87086; 87340; 87506; 87637; 87806; 93005; 96372; 96374; 96375; 97116; 97161; 97166; 99285; C8929; J0696; J1644; J3411; J7030

== ENCOUNTER → 2024-07-09 10:42 | Outpatient (BNVA) | payer MEDICARE, SELFPAY | PROVIDERS: PCP Nurse Practitioner Family; Visit Provider Nurse Practitioner Family | DX: N17.9 Acute kidney failure, unspecified (principal) | CPT/HCPCS: 80048 ==

== ENCOUNTER 2024-07-13 09:38 | Outpatient (CLI) | payer MEDICARE, SELFPAY ==
--- NOTE | 2024-07-13 09:44 | MR_ITS ---
WS: [id number] MRI LUMBAR SPINE NONCONTRAST TECHNIQUE: Sagittal T1, T2 and STIR imaging. Axial T1 and T2 imaging. CLINICAL INFORMATION: M48.062 - Spinal stenosis, lumbar region with neurogenic ... COMPARISON: 03/11/2023 FINDINGS: Postoperative changes are new since 2022. Pedicle screw fixation L4-S1 with decompressive laminectomies. Susceptibility artifact degrades images in the lower lumbar spine. L1-L2: Mild annular bulging. Slight narrowing of the subarticular recess bilaterally. Mild facet arthropathy. Foramen are patent. L2-L3: Mild annular bulging. Slight retrolisthesis. LEFT subarticular disc protrusion impinges the LEFT subarticular recess and traversing LEFT L2 nerve root. Moderate to severe LEFT foraminal narrowing. Mild central canal stenosis. Moderate facet arthropathy. LEFT foraminal protrusion appears progressed compared to previous. Mild RIGHT foraminal narrowing. Slight retrolisthesis L2 on L3 appears progressed. L3-L4: Mild annular bulging. Moderate to severe central canal stenosis appears progressed compared to previous. Central disc protrusion is new. Moderate facet arthropathy and ligamentum flavum hypertrophy. Severe bilateral foraminal narrowing appears progressed. L4-L5: Pedicle screw fixation with interbody fusion. Slight anterolisthesis. Mild LEFT foraminal narrowing. Spinal canal and RIGHT foramen are patent. Laminectomy defects. L5-S1: Slight anterolisthesis. Mild LEFT and no significant RIGHT foraminal narrowing. Spinal canal is patent. Visualized pelvic bony structures: Normal. Paravertebral soft tissues: Normal. MR/MR lumbar spine wo con* [id number] IMPRESSION: Images degraded by hardware artifact and motion 1. Postoperative changes are new compared to previous with pedicle screw fixat ion L4-S1. 2. Moderate to severe central canal stenosis L3-4 and severe just inferior to the L3-4 disc space due to new central disc protrusion in combination with face t arthropathy and ligamentum flavum hypertrophy. 3. Severe bilateral L3-4 foraminal narrowing is progressed 4. LEFT subarticular protrusion L2-3 impinges the LEFT subarticular recess wit h moderate to severe LEFT foraminal narrowing. Mild central canal stenosis at t his level. Slight retrolisthesis L2 on L3 appears new compared to previous.
== END 2024-07-13 09:39 | disposition home or self-care (01) ==
LOC: RAD 09:42
PROVIDERS: PCP Nurse Practitioner Family; Visit Provider Orthopaedic Surgery
DX: M48.062 Spinal stenosis, lumbar region with neurogenic claudication (principal); Z98.1 Arthrodesis status; M43.17 Spondylolisthesis, lumbosacral region; M43.16 Spondylolisthesis, lumbar region; M51.369 Other intervertebral disc degeneration, lumbar region without mention of lumbar back pain or lower extremity pain; M47.896 Other spondylosis, lumbar region; M51.26 Other intervertebral disc displacement, lumbar region; M96.89 Other intraoperative and postprocedural complications and disorders of the musculoskeletal system; M48.07 Spinal stenosis, lumbosacral region
CPT/HCPCS: 72148

== ENCOUNTER → 2024-07-27 07:34 | Outpatient (BNVA) | payer MEDICARE, SELFPAY | PROVIDERS: PCP Nurse Practitioner Family; Visit Provider Podiatrist Foot & Ankle Surgery | DX: E11.69 Type 2 diabetes mellitus with other specified complication (principal); L60.3 Nail dystrophy; M25.372 Other instability, left ankle; M48.062 Spinal stenosis, lumbar region with neurogenic claudication | CPT/HCPCS: 11721; 36415; 80053; 81001; 85025; 99214 ==

== ENCOUNTER 2024-08-13 06:32 | Day surgery (SDC) | payer MEDICARE, SELFPAY ==
[2024-08-13] VITALS (11 sets, daily range): BP systolic 146–168; BP diastolic 82–94; PULSE 83–91; RESP 16–23; TEMP 36.3–36.5; O2SAT 93–98; BMI 37.0
[2024-08-13] MEDS: sodium chloride 0.9% 1,000 ML 30 ML IV (07:23)
--- NOTE | 2024-08-13 08:09 | W.PM.OPSUD ---
Surgery/Procedure H&P Update DATE OF PROCEDURE: August 13, 2024 DATE H&P PERFORMED: 07/27/24 H&P UPDATE INFORMATION: I have reviewed H&P completed within last 30 days, I have examined patient prior to procedure and No changes to prior documentation PREOP DIAGNOSIS: Lumbar stenosis with neurogenic claudication PLANNED PROCEDURE: Operation Date: 08/13/24 08:30 Proposed Procedures p Lumbar Spine Decompression(Not Applicable) - Manuel Granger DO
--- NOTE | 2024-08-13 08:11 | P.ANESASSM_ITS ---
Pre-Anesthetic Assessment Height/Weight: Height 5 ft 9 in Weight 251 lb Temp Pulse Resp BP Pulse Ox O2 Del Method 97.7 F 84 18 150/91 96 Room Air 08/13/24 07:16 08/13/24 07:16 08/13/24 07:16 08/13/24 07:16 08/13/24 07:16 08/13/24 07:16 Preop Diagnosis: Lumbar stenosis with neurogenic claudication Operation Date: 08/13/24 08:30 Proposed Procedures p Lumbar Spine Decompression(Not Applicable) - Manuel Granger, Was Beta Frankie taken within 24 hours: N/A Was Clonidine taken within 24 hours: N/A Last intake: Intake Last Liquid Date 08/12/24 Last Liquid Time 18:00 Last Solid Date 08/12/24 Last Solid Time 18:00 Social No alcohol and No tobacco Exam alert, oriented x 3, clear to auscultation bilaterally and regular rate & rhythm Airway Submandibular: within normal limits Cervical ROM: within normal limits Mallampati: Class II Comments: Comments: Edentulous, large neck circumference Anesthetic Plan ASA status: 3 Anesthesia: General Other: No prior issues with anesthesia N.p.o. since yesterday evening Type 2 diabetes Hypertension on lisinopril and amlodipine SINGH noncompliant with CPAP CKD, mild anemia noted on labs Echo showing EF 60% CARMELA 1.5 cm EKG sinus rhythm Plan for GETA Medications/Allergies Home Medications ?Medication ?Instructions ?Recorded ?Confirmed ?Last Taken ?Type calcium 500 mg (as 1 tab PO BEDTIME 11/16/1909/05/23 History carbonate)-vitamin D3 5 mcg (200 unit) tablet (Calcium 500 + D) garlic 1,000 mg capsule 1,000 mg PO DAILY 11/16/19 0 08/12/24 08/08/24 History potassium gluconate 595 mg (99 mg) 595 mg PO DAILY 11/2808/12/24 09/05/23 History tablet ascorbate calcium (vitamin C) 500 500 mg PO DAILY 10/1108/12/24 09/05/23 History mg tablet magnesium 250 mg tablet 400 mg PO DAILY 04/13/2108/0309/05/23 History biotin 2,500 mcg capsule 5,000 mcg PO DAILY 06/25/21 08/12/24 09/05/23 History blood-glucose meter (True Metrix #1 ea 12/19/21 Unknown Rx Glucose Meter kit) blood pressure monitor #1 ea 01/17/22 08/11/24 Unkn own Rx cholecalciferol (vitamin D3) 10 10 mcg PO DAILY 08/12/24 09/05/23 History mcg (400 unit) capsule (Vitamin D3) spectrum AFO #1 ea 11/27/22 08/11/24 Unkn own Rx blood sugar diagnostic (True #200 strips 10/08/2307/06 Unknown Rx Metrix Glucose Test Strip) Bone growth stimulator #1 ea 12/08/23 08/11/24 Unkn own Rx Diabetic shoes #1 ea 12/30/23 08/11/24 Unkn own Rx spectrum afo #1 ea 12/30/23 08/11/24 Unkn own Rx aspirin 81 mg tablet,delayed 81 mg PO DAILY #90 tabs 0 01/13/24 08/12/24 08/08/24 Rx release simvastatin 40 mg tablet 40 mg PO DAILY #90 tabs 01/0308/12/24 08/12/24 Rx omega-3s 300 ju-prl-yda-other 1 cap PO DAILY 06/18/24 08/12/24 08/08/24 History [id number] oil 1,000 mg capsule ([employer]-3 Fish Oil) vitamin B complex 1 tab PO DAILY 06/18/2408/03 Unknown History Grab Bar #1 ea 06/22/24 08/11/24 Unkn own Rx gabapentin 300 mg capsule 300 mg PO BID 06/22/2408/1208/12/24 History amlodipine 5 mg tablet (Norvasc) 5 mg PO DAILY #30 tab s 07/26/24 08/12/24 08/13/24 Rx lisinopril 20 mg tablet 20 mg PO DAILY 30 days #30 t abs 08/04/24 08/12/24 Unknown Rx pantoprazole 20 mg tablet,delayed 20 mg PO DAILY #90 t abs 08/05/24 08/12/24 08/13/24 Rx release acetaminophen 500 mg capsule 500 mg PO TID PRN fever o r pain 08/11/24 08/12/24 08/12/24 Rx #270 caps buspirone 10 mg tablet 20 mg (2 x 10 mg) PO .fadumon g #180 08/11/24 08/12/24 Unknown Rx tabs quetiapine 400 mg tablet (Seroquel) 400 mg PO BEDTIME #90 tabs 08/11/24 08/12/24 08/12/24 Rx venlafaxine 150 mg 150 mg PO QAM #90 caps 08/1108/12/24 08/12/24 Rx capsule,extended release 24 hr (Effexor XR) venlafaxine 75 mg capsule,extended 75 mg PO QAM #90 ca ps 08/11/24 08/12/24 08/12/24 Rx release 24 hr (Effexor XR) ziprasidone HCl 80 mg capsule 80 mg PO .5 pm #90 caps 08/11/24 08/12/24 08/12/24 Rx (Geodon) cyclobenzaprine 10 mg tablet 10 mg PO BID 08/12/2408/03 Unknown History levothyroxine 75 mcg tablet 75 mcg PO DAILY 08/12/24 0 08/12/24 08/13/24 History montelukast 10 mg tablet 10 mg PO DAILY 08/12/2408/03 Unknown History Allergies Allergy/AdvReac Type Severity Reaction Status Date / Time carisoprodol (From [facility]oma) Allergy Severe Unconscious Verified 08/11/24 07:55 Penicillins Allergy Unknown swelling Verified 08/11/24 07:55 Current Medications Generic Name Dose Route Start Last Admin Trade Name Freq PRN Reason Stop Dose Admin Sodium Chloride 1,000 mls @ 30 mls/hr 08/13/24 07:00 08/13/24 07:23 Sodium Chloride 0.9% IV 08/14/24 06:59 30 mls/hr .Q24H MILADYS Administration PFSH Anesthesia Medical History Lumbar stenosis with neurogenic claudication 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) Enrolled in chronic care management DISH (diffuse idiopathic skeletal hyperostosis) Psychiatric care Idiopathic mild intellectual disability Generalized anxiety disorder Major depressive disorder, recurrent episode with mood-congruent psychotic features Surgical History Status post lumbar spinal fusion History of left knee replacement History of ankle surgery Left Social History Smoking and tobacco/nicotine status: never used tobacco/nicotine Alcohol intake: never Current occupation: disability Data Anesthesia Cardiac Studies: Echocardiogram 06/18/24 Echocardiogram Ultrasound 02/14/20 Cardiac Event Monitor 09/02/22
--- NOTE | 2024-08-13 08:11 | ANES.PREANE2 ---
Pre-Anesthetic Assessment Height/Weight: Height 5 ft 9 in Weight 251 lb Temp Pulse Resp BP Pulse Ox O2 Del Method 97.7 F 84 18 150/91 96 Room Air 08/13/24 07:16 08/13/24 07:16 08/13/24 07:16 08/13/24 07:16 08/13/24 07:16 08/13/24 07:16 Preop Diagnosis: Lumbar stenosis with neurogenic claudication Operation Date: 08/13/24 08:30 Proposed Procedures p Lumbar Spine Decompression(Not Applicable) - Manuel Granger, Was Beta Frankie taken within 24 hours: N/A Was Clonidine taken within 24 hours: N/A Last intake: Intake Last Liquid Date 08/12/24 Last Liquid Time 18:00 Last Solid Date 08/12/24 Last Solid Time 18:00 Social No alcohol and No tobacco Exam alert, oriented x 3, clear to auscultation bilaterally and regular rate & rhythm Airway Submandibular: within normal limits Cervical ROM: within normal limits Mallampati: Class II Comments: Comments: Edentulous, large neck circumference Anesthetic Plan ASA status: 3 Anesthesia: General Other: No prior issues with anesthesia N.p.o. since yesterday evening Type 2 diabetes Hypertension on lisinopril and amlodipine SINGH noncompliant with CPAP CKD, mild anemia noted on labs Echo showing EF 60% CARMELA 1.5 cm EKG sinus rhythm Plan for GETA Medications/Allergies Home Medications ?Medication ?Instructions ?Recorded ?Confirmed ?Last Taken ?Type calcium 500 mg (as 1 tab PO BEDTIME 11/16/19 08/12/24 09/05/23 History carbonate)-vitamin D3 5 mcg (200 unit) tablet (Calcium 500 + D) garlic 1,000 mg capsule 1,000 mg PO DAILY 11/16/19 08/12/24 08/08/24 History potassium gluconate 595 mg (99 mg) 595 mg PO DAILY 11/16/19 08/12/24 09/05/23 History tablet ascorbate calcium (vitamin C) 500 500 mg PO DAILY 11/06/20 08/12/24 09/05/23 History mg tablet magnesium 250 mg tablet 400 mg PO DAILY 04/13/21 08/12/24 09/05/23 History biotin 2,500 mcg capsule 5,000 mcg PO DAILY 06/25/21 08/12/24 09/05/23 History blood-glucose meter (True Metrix #1 ea 12/19/21 08/11/24 Unknown Rx Glucose Meter kit) blood pressure monitor #1 ea 01/17/22 08/11/24 Unknown Rx cholecalciferol (vitamin D3) 10 10 mcg PO DAILY 03/14/22 08/12/24 09/05/23 History mcg (400 unit) capsule (Vitamin D3) spectrum AFO #1 ea 11/27/22 08/11/24 Unknown Rx blood sugar diagnostic (True #200 strips 10/08/23 08/11/24 Unknown Rx Metrix Glucose Test Strip) Bone growth stimulator #1 ea 12/08/23 08/11/24 Unknown Rx Diabetic shoes #1 ea 12/30/23 08/11/24 Unknown Rx spectrum afo #1 ea 12/30/23 08/11/24 Unknown Rx aspirin 81 mg tablet,delayed 81 mg PO DAILY #90 tabs 01/13/24 08/12/24 08/08/24 Rx release simvastatin 40 mg tablet 40 mg PO DAILY #90 tabs 05/19/24 08/12/24 08/12/24 Rx omega-3s 300 jh-flo-knu-other 1 cap PO DAILY 06/18/24 08/12/24 08/08/24 History [id number] oil 1,000 mg capsule ([place]-3 Fish Oil) vitamin B complex 1 tab PO DAILY 06/18/24 08/12/24 Unknown History Grab Bar #1 ea 06/22/24 08/11/24 Unknown Rx gabapentin 300 mg capsule 300 mg PO BID 06/22/24 08/12/24 08/12/24 History amlodipine 5 mg tablet (Norvasc) 5 mg PO DAILY #30 tabs 07/26/24 08/12/24 08/13/24 Rx lisinopril 20 mg tablet 20 mg PO DAILY 30 days #30 tabs 08/04/24 08/12/24 Unknown Rx pantoprazole 20 mg tablet,delayed 20 mg PO DAILY #90 tabs 08/05/24 08/12/24 08/13/24 Rx release acetaminophen 500 mg capsule 500 mg PO TID PRN fever or pain 08/11/24 08/12/24 08/12/24 Rx #270 caps buspirone 10 mg tablet 20 mg (2 x 10 mg) PO .morning #180 08/11/24 08/12/24 Unknown Rx tabs quetiapine 400 mg tablet (Seroquel) 400 mg PO BEDTIME #90 tabs 08/11/24 08/12/24 08/12/24 Rx venlafaxine 150 mg 150 mg PO QAM #90 caps 08/11/24 08/12/24 08/12/24 Rx capsule,extended release 24 hr (Effexor XR) venlafaxine 75 mg capsule,extended 75 mg PO QAM #90 caps 08/11/24 08/12/24 08/12/24 Rx release 24 hr (Effexor XR) ziprasidone HCl 80 mg capsule 80 mg PO .5 pm #90 caps 08/11/24 08/12/24 08/12/24 Rx (Geodon) cyclobenzaprine 10 mg tablet 10 mg PO BID 08/12/24 08/12/24 Unknown History levothyroxine 75 mcg tablet 75 mcg PO DAILY 08/12/24 08/12/24 08/13/24 History montelukast 10 mg tablet 10 mg PO DAILY 08/12/24 08/12/24 Unknown History Allergies Allergy/AdvReac Type Severity Reaction Status Date / Time carisoprodol (From [facility]) Allergy Severe Unconscious Verified 08/11/24 07:55 Penicillins Allergy Unknown swelling Verified 08/11/24 07:55 Current Medications Generic Name Dose Route Start Last Admin Trade Name Freq PRN Reason Stop Dose Admin Sodium Chloride 1,000 mls @ 30 mls/hr 08/13/24 07:00 08/13/24 07:23 Sodium Chloride 0.9% IV 08/14/24 06:59 30 mls/hr .Q24H MILADYS Administration PFSH Anesthesia Medical History Lumbar stenosis with neurogenic claudication 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) Enrolled in chronic care management DISH (diffuse idiopathic skeletal hyperostosis) Psychiatric care Idiopathic mild intellectual disability Generalized anxiety disorder Major depressive disorder, recurrent episode with mood-congruent psychotic features Surgical History Status post lumbar spinal fusion History of left knee replacement History of ankle surgery Left Social History Smoking and tobacco/nicotine status: never used tobacco/nicotine Alcohol intake: never Current occupation: disability Data Anesthesia Cardiac Studies: Echocardiogram 06/18/24 Echocardiogram Ultrasound 02/14/20 Cardiac Event Monitor 09/02/22
[2024-08-13] MEDS: clindamycin 600 MG/50 ML PREMIX 100 MG IV (08:28)
[2024-08-13] MEDS: lidocaine-epi 1% 20 mL INJ 10 ML INJECTION (09:04)
--- NOTE | 2024-08-13 09:05 | PC.NURSE ---
Small tick removed from patient's right proximal posterior medial thigh. Site cleansed with alcohol. Tick was completely intact at removal, no part of the tick was left on/in patient's skin. Dr. Granger notified. No orders at this time.
--- NOTE | 2024-08-13 09:49 | PM.OP ---
Operative Report Date of procedure: August 13, 2024 Pre-op diagnosis: Lumbar stenosis with neurogenic claudication Post-op diagnosis: same Procedure done: L3-4 laminectomy with partial facetectomy Surgeon: Manuel Granger DO Estimated blood loss (mL): 15 Procedure: L3-4 laminectomy with partial facetectomy Patient is brought to the operative suite. After undergoing anesthesia they are placed in the prone position. All areas of impingement are well padded. Patient is then prepped and draped in the normal sterile fashion. A skin incision is made over the L3/4 level. This is confirmed under c-arm guidance. A series of dilators are passed and the tubular retractor is docked on the L3 lamina. A bovie is used to clear the soft tissue off the lamina and the L 3/4 facet joint. A high speed karson is then used to perform the laminectomy and take down the medial aspect of the L 3/4 facet joint. A kerrison rongeure was then used to take down the remaining lamina and smooth the edge of the laminectomy up to the point where the ligamentum flavum attaches. Attention was then brought to the medial aspect of the facet joint. The remaining medial aspect of the superior and inferior aspect of the facet joint were taken down with the kerrison from the pedicle of L3 to L 4. The facet joint had significant hypertrophy. Attention was then brought to the Ligamentum Flavum. The ligament was taken down from the lamina of L3 to L4 and out medially to the remaining facet joint. The ligament was thick. The dura was then exposed. The dura was in good repair. The L3 nerve was then traced with a curette out the L3/4 foramen and found to be adequately decompressed. The L4 nerve was traced with a curette around the L4 pedicle. The lateral recess was opened with a kerrison helping to further decompress the L4 nerve. Wound is then irrigated copiously with saline and surgiflo is used to stop any bleeding. The tubular retractor is removed and the wound is closed with vicryl and monocryl suture. Glue is then used to protect the wound. A sterile dressing is then placed. Patient was then placed in the supine position and transferred to the PACU in stable condition.
--- NOTE | 2024-08-13 10:22 | ANE.PACU2 ---
Inpatient post-anesthesia follow up: Airway intact: Yes Vital signs: Temperature 97.3 F Pulse Rate 85 Respiratory Rate 18 Blood Pressure 161/86 Pulse Oximetry 93 Oxygen Delivery Me thod Nasal Cannula Oxygen Flow Rate 2 Fraction of Inspir ed Oxygen Hydration adequate: Yes Nausea and vomiting: No Pain level: 1 Mental status: Baseline
--- NOTE | 2024-08-13 13:14 | XR_ITS ---
WS: [id number] XR lumbar spine 1V [id number] REASON FOR EXAM: or pic, decompression FINDINGS: Surgical instrument overlies the left L3-4 disc space. XR/XR lumbar spine 1V [id number] IMPRESSION: Intraoperative lumbar level localization as above.
== END 2024-08-13 10:53 | disposition home or self-care (01) ==
PROVIDERS: PCP Nurse Practitioner Family; Visit Provider Orthopaedic Surgery
PROC: (CPT 63005; principal; 2024-08-13 08:10)
DX: M48.062 Spinal stenosis, lumbar region with neurogenic claudication (principal); Z79.899 Other long term (current) drug therapy; G47.33 Obstructive sleep apnea (adult) (pediatric); Z91.199 Patient's noncompliance with other medical treatment and regimen due to unspecified reason; E11.22 Type 2 diabetes mellitus with diabetic chronic kidney disease; I12.9 Hypertensive chronic kidney disease with stage 1 through stage 4 chronic kidney disease, or unspecified chronic kidney disease; N18.9 Chronic kidney disease, unspecified; D63.1 Anemia in chronic kidney disease; Z79.82 Long term (current) use of aspirin; Z79.890 Hormone replacement therapy; Z88.0 Allergy status to penicillin; Z88.8 Allergy status to other drugs, medicaments and biological substances; Z98.1 Arthrodesis status
CPT/HCPCS: 63047; 72020; 76000; J1100; J1171; J2405; J2704; J3010; J3490; J7030; J9999

== ENCOUNTER → 2024-09-08 15:40 | Outpatient (BNVA) | payer MEDICARE, SELFPAY | PROVIDERS: PCP Nurse Practitioner Family; Visit Provider Nurse Practitioner Family | DX: I10 Essential (primary) hypertension (principal); R42 Dizziness and giddiness | CPT/HCPCS: 80053; 85025 ==

== ENCOUNTER → 2024-10-08 14:25 | Outpatient (BNVA) | payer MEDICARE, SELFPAY | PROVIDERS: PCP Nurse Practitioner Family; Visit Provider Family Medicine | DX: E11.9 Type 2 diabetes mellitus without complications (principal); E03.9 Hypothyroidism, unspecified; R52 Pain, unspecified; R53.83 Other fatigue; W57.XXXA Bitten or stung by nonvenomous insect and other nonvenomous arthropods, initial encounter; R50.9 Fever, unspecified; G25.81 Restless legs syndrome; N17.9 Acute kidney failure, unspecified; E87.1 Hypo-osmolality and hyponatremia; I10 Essential (primary) hypertension; R79.89 Other specified abnormal findings of blood chemistry; F33.3 Major depressive disorder, recurrent, severe with psychotic symptoms; Z12.5 Encounter for screening for malignant neoplasm of prostate; E83.42 Hypomagnesemia; E11.49 Type 2 diabetes mellitus with other diabetic neurological complication; E55.9 Vitamin D deficiency, unspecified | CPT/HCPCS: 80053; 80061; 82306; 82607; 83036; 83721; 83735; 84439; 84443; 85025; 85651; 86140; 86160; 86618; 86666; 86668; 86757; G0103 ==

== ENCOUNTER → 2024-10-26 12:54 | Outpatient (BNVA) | payer MEDICARE, SELFPAY | PROVIDERS: PCP Family Medicine; Visit Provider Orthopaedic Surgery | DX: Z98.890 Other specified postprocedural states (principal) | CPT/HCPCS: 99024 ==

== ENCOUNTER 2024-11-15 09:23 | Outpatient (CLI) | payer MEDICARE, SELFPAY ==
--- NOTE | 2024-11-15 09:30 | MR_ITS ---
WS: [id number] MRI LUMBAR SPINE NONCONTRAST TECHNIQUE: Sagittal T1, T2 and STIR imaging. Axial T1 and T2 imaging. CLINICAL INFORMATION: Back Pain COMPARISON: MRI 07/13/2024 FINDINGS: Some images degraded due to susceptibility artifact from hardware. Pedicle screw fixation L4-S1. Interbody fusion L4-L5 and L5-S1. Bilateral sacroiliac fixation screws. L1-L2: Mild annular bulging. Mild facet arthropathy. Mild central canal stenosis. Mild bilateral foraminal narrowing. Narrowing of the subarticular recess. L2-L3: Slight retrolisthesis. Mild disc bulging. Mild central canal stenosis with narrowing of the subarticular recess LEFT greater than RIGHT. Moderate facet arthropathy. LEFT foraminal protrusion with moderate LEFT foraminal narrowing. Mild RIGHT foraminal narrowing. L3-L4: Central disc protrusion is stable. Central canal stenosis with interval laminectomy. Central canal stenosis appears improved at this level with persistent moderate narrowing. Narrowing of the subarticular recess bilaterally. Facet arthropathy with ligamentum flavum hypertrophy. Moderate bilateral foraminal narrowing impinges the exiting L3 nerve roots bilaterally similar to previous. L4-L5: Pedicle screw fixation with interbody fusion. Laminectomy defects. Spinal canal is patent. Mild RIGHT foraminal narrowing. L5-S1: Mild disc bulging. Spinal canal not evaluated at this level due to susceptibility artifact. Mild LEFT foraminal narrowing visualized on the sagittal imaging. Visualized pelvic bony structures: Normal. Paravertebral soft tissues: Normal. MR/MR lumbar spine wo con* [id number] IMPRESSION: 1. Interval laminectomy L3-4 with slightly improved central canal stenosis at this level. Persistent moderate central canal narrowing with stable central pro trusion in combination with facet arthropathy and ligamentum flavum hypertrophy . 2. No other significant changes compared to previous. 3. Moderate bilateral L3-4 foraminal narrowing with small foraminal protrusion s. 4. Mild central canal stenosis L1-2 and L2-3 with narrowing of the subarticula r recess worse at LEFT L2-3. 5. Moderate LEFT L2-3 foraminal narrowing with a LEFT foraminal protrusion chance ears stable.
== END 2024-11-15 09:24 | disposition home or self-care (01) ==
LOC: RAD 09:24
PROVIDERS: PCP Family Medicine; Visit Provider Orthopaedic Surgery
DX: M48.061 Spinal stenosis, lumbar region without neurogenic claudication (principal); M47.816 Spondylosis without myelopathy or radiculopathy, lumbar region; M51.26 Other intervertebral disc displacement, lumbar region
CPT/HCPCS: 72148

== ENCOUNTER → 2024-11-25 13:01 | Outpatient (BNVA) | payer MEDICARE, SELFPAY | PROVIDERS: PCP Family Medicine; Visit Provider Orthopaedic Surgery | DX: Z98.890 Other specified postprocedural states (principal); Z09 Encounter for follow-up examination after completed treatment for conditions other than malignant neoplasm | CPT/HCPCS: 99024 ==

== ENCOUNTER → 2025-02-28 09:07 | Outpatient (BNVA) | payer MEDICARE, SELFPAY | PROVIDERS: PCP Family Medicine; Visit Provider Podiatrist Foot & Ankle Surgery | DX: E11.69 Type 2 diabetes mellitus with other specified complication (principal); L60.3 Nail dystrophy; E11.8 Type 2 diabetes mellitus with unspecified complications; M25.372 Other instability, left ankle; M20.41 Other hammer toe(s) (acquired), right foot; M20.42 Other hammer toe(s) (acquired), left foot; M20.11 Hallux valgus (acquired), right foot; M20.12 Hallux valgus (acquired), left foot | CPT/HCPCS: 11721; 99213 ==

== ENCOUNTER → 2025-04-12 09:31 | Outpatient (BNVA) | payer MEDICARE, SELFPAY | PROVIDERS: PCP Family Medicine; Visit Provider Family Medicine | DX: E11.49 Type 2 diabetes mellitus with other diabetic neurological complication (principal); R79.89 Other specified abnormal findings of blood chemistry; I10 Essential (primary) hypertension; E03.9 Hypothyroidism, unspecified; E78.2 Mixed hyperlipidemia; R30.0 Dysuria; F33.3 Major depressive disorder, recurrent, severe with psychotic symptoms; Z12.5 Encounter for screening for malignant neoplasm of prostate; E55.9 Vitamin D deficiency, unspecified | CPT/HCPCS: 80053; 80061; 81000; 82043; 82306; 82607; 83036; 83721; 84443; 85025; G0103 ==